=== PATIENT | male | born 1970 | race Caucasian/White ===

== ENCOUNTER 2017-01-18 06:27 | Inpatient (IN) ==
[2017-01-18 07:55] LABS: Basophils # 0.1 K/mcL (0.0-0.2); Basophils % 0.4 %; Eosinophils # 0.2 K/mcL (0.0-0.6); Eosinophils % 1.5 %; Hematocrit 51.2 % (37.5-50.1); Hemoglobin 17.7 g/dL (12.9-16.9); Immature Granulocytes % 0.4 % (0-4); Lymphocytes # 3.9 K/mcL (0.6-4.6); Mean Corpuscular HGB Conc 34.6 g/dL (31.6-35.5); Mean Corpuscular Hemoglobin 31.8 pg (28.0-33.3); Mean Corpuscular Volume 91.9 fL (83.0-100.0); Mean Platelet Volume 9.9 fL (9.4-12.4); Monocytes # 0.9 K/mcL (0.0-1.3); Monocytes % 5.5 %; Neutrophils # 10.4 K/mcL (1.6-8.9); Platelet Count 285 K/mcL (140-400); Red Blood Count 5.57 M/mcL (4.19-5.50); Red Cell Distribution Width 12.4 % (11.5-14.5); Segmented Neutrophils % 67.2 %
[2017-01-18 08:03] LABS: Bilirubin,Urine Negative (Negative); Blood,Urine Negative (Negative); Clarity,Urine Clear (Clear); Color,Urine Yellow (Yellow); Glucose,Urine (UA) Normal (Normal); Ketones,Urine Negative (Negative); Leukocyte Esterase,Urine Negative (Negative); Nitrite,Urine Negative (Negative); PH,Urine 6.5 pH Units (5.0-8.0); Protein,Urine Negative (Neg-Trace); Specific Gravity,Urine 1.008 (1.010-1.025); Urobilinogen,Urine Normal (Normal)
[2017-01-18 08:07] LABS: Amphetamine Screen,Urine Negative ng/mL (Cutoff=1000); Barbiturate Screen,Urine Negative ng/mL (Cutoff=200); Benzodiazepines Screen,Urine Negative ng/mL (Cutoff=200); Cannabinoid Screen,Urine Positive ng/mL (Cutoff = 50); Cocaine Screen,Urine Negative ng/mL (Cutoff= 300); Opiate Screen,Urine Negative ng/mL (Cutoff=300); Phencyclidine Screen,Urine Negative ng/mL (Cutoff=25)
[2017-01-18 08:21] LABS: BUN/Creatinine Ratio 7 (6-26); Blood Urea Nitrogen 8 mg/dL (8-26); Calcium 9.2 mg/dL (8.6-10.8); Carbon Dioxide 25 mEq/L (19-29); Chloride 104 mEq/L (98-109); Glucose 121 mg/dL (70-99); Osmolality,Calculated 290 (280-300); Potassium 3.5 mEq/L (3.5-4.5); Sodium 140 mEq/L (136-145); eGFR For African Americans > 60 (> 60); eGFR For Non-African Americans > 60 (> 60)
[2017-01-18 08:35] LABS: Acetaminophen < 1.0 mcg/mL (10-30); Ethanol < 10 mg/dL (0-10); Salicylate < 5.0 mg/dL (15-30)
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
[2017-01-18] MEDS ORDERED: *HR* LORazepam 2 MG/ML VIAL IM PRN (11:45)
[2017-01-18] MEDS ORDERED: Mag Hydrox/Al Hydrox/Simeth 30 ML UDC PO PRN (11:45)
[2017-01-18] MEDS ORDERED: MOM Conc 10 ML UD.LIQ PO PRN (11:45)
[2017-01-18] MEDS ORDERED: Haloperidol Lactate 5 MG/ML VIAL IM PRN (11:45)
[2017-01-18] MEDS: Ibuprofen 400 MG TABLET PO PRN (16:25)
[2017-01-18] MEDS: traZODone 50 MG TABLET PO PRN (19:57)
[2017-01-18] MEDS ORDERED: Pregabalin 75 MG CAPSULE PO PRN (20:56)
[2017-01-18] MEDS ORDERED: Ibuprofen 800 MG TABLET PO PRN (20:56)
[2017-01-19] MEDS: Ibuprofen 400 MG TABLET PO PRN (07:50)
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
[2017-01-19] MEDS: traZODone 50 MG TABLET PO PRN (20:48)
[2017-01-19] MEDS: Divalproex (24 HR) 500 MG TABLET PO SCH (20:49)
--- NOTE | 2017-01-20 10:44 | Psychiatry Progress Note ---
Date of Encounter: 01/20/17 Time of Encounter: 10:42 Subjective Interval history: Patient seen and evaluated this morning patient reports that he is upset because "they gave me medication last night". Patient reports that he does not want to take any medication. Patient reports that he would like to go home he reports he lives with his mother and reports that if his mother does not want to take him back that its okay and he wants to go some rales patient reports that he slept well patient seems to be very disheveled rapid speech and a flight of ideas. Review of Systems Psychiatric: Reports: mood swings, other (Paranoid delusion) Objective: Exam Level of alertness: Alert Patient appearance: Disheveled Behavior: anxious, guarded, suspicious, talkative Psychomotor activity: Increased Eye contact: Minimal Contact Mood description: Labile, Irritable Affect description: labile Speech pattern: Pressured Speech volume: Normal Thought process: Flight of Ideas Thought content: Yes Preoccupation Judgment: Poor Insight: Minimal Results - Vital Signs Vital Signs: Temp Pulse Resp BP Pulse Ox 96.8 F L 68 18 148/103 98 01/20/17 08:59 01/20/17 08:59 01/20/17 08:59 01/20/17 08:59 01/18/17 06:30 Assessment and Plan (1) Schizoaffective disorder, bipolar type Current visit: Yes Status: Acute Additional Plan: Patient is reluctant to be on medication, I discussed with him starting Cymbalta , benefits and side effects were discussed and he is agreeable to start we will monitor. Also will start him on Depakote 500 mg at bedtime. Risks, benefits, side effects, alternatives discussed w/pt: Yes Patient agreeable to treatment: Yes Consult Discharge Plan - Plan Referrals: [facility] [Outside] - 01/30/17 3:00 pm (The above appointment is with Mar Hilton Daily, for outpatient psychiatric assessment and medication management services. Please arrive 30 minutes early to complete paperwork. Please bring your photo ID and medication list. This is the first available appointment. You may contact the office regularly to check for cancellations that may allow you to be seen sooner. Additionally, the new assistant case manager assigned to you will contact you directly to schedule your intake appointment for case management and mental health counseling services. )
[2017-01-20] MEDS: Divalproex (24 HR) 500 MG TABLET PO SCH ×2 (21:24→23:01)
[2017-01-20] MEDS: traZODone 50 MG TABLET PO PRN (23:03)
--- NOTE | 2017-01-21 17:41 | Psychiatry Progress Note ---
Date of Encounter: 01/21/17 Time of Encounter: 17:38 Subjective Interval history: Patient seen and evaluated on approach patient was very disheveled patient continues to be bizarre and psychotic patient reports his mood as "isolative considering the circumstances". Patient reports that he has not a because he has leeches inside him and he reports this is something to do with Ji Daly patient was very tangential and speaking nonsensical. Patient has been selectively compliant with medication patient has been seen pacing the unit at times. And responding to internal stimuli. Review of Systems Psychiatric: Reports: anxiety, mood swings, other (Paranoid delusion) Objective: Exam Patient orientation: Yes Time, Yes Place Level of alertness: Alert Patient appearance: Disheveled Behavior: anxious, guarded, suspicious, distractible, impulsive, talkative Psychomotor activity: Normal Eye contact: Minimal Contact Mood description: Expansive, Labile, Irritable Affect description: constricted, incongruent with mood Speech volume: Loud Thought process: Loose Associations, Tangential, Flight of Ideas Thought content: Yes Paranoid delusion, Yes Grandiose delusion, Yes Obsessive thoughts Perceptual disturbances: Yes Auditory hallucinations Judgment: Poor Insight: Minimal Results - Vital Signs Vital Signs: Temp Pulse Resp BP Pulse Ox 97.2 F L 77 18 140/92 98 01/21/17 08:27 01/21/17 08:27 01/21/17 08:27 01/21/17 08:27 01/18/17 06:30 Assessment and Plan (1) Schizoaffective disorder, bipolar type Current visit: Yes Status: Acute Plan: Continue hospitalization, Encourage participation in unit milieu, Monitor sleep, Monitor appetite Additional Plan: Patient is reluctant to be on medication, I discussed with him starting Cymbalta , benefits and side effects were discussed and he is agreeable to start we will monitor. Also will start him on Depakote 500 mg at bedtime. Risks, benefits, side effects, alternatives discussed w/pt: Yes Patient agreeable to treatment: Yes Consult Discharge Plan - Plan Referrals: [facility] [Outside] - 01/30/17 3:00 pm (The above appointment is with Mar Hilton Daily, for outpatient psychiatric assessment and medication management services. Please arrive 30 minutes early to complete paperwork. Please bring your photo ID and medication list. This is the first available appointment. You may contact the office regularly to check for cancellations that may allow you to be seen sooner. Additionally, the new binder caser assigned to you will contact you directly to schedule your intake appointment for case management and mental health counseling services. )
[2017-01-21] MEDS: hydrOXYzine pamoate 25 MG CAPSULE PO PRN (20:14)
[2017-01-21] MEDS: traZODone 50 MG TABLET PO PRN (20:15)
[2017-01-21] MEDS: Divalproex (24 HR) 500 MG TABLET PO SCH (20:15)
[2017-01-21] MEDS: OLANZapine 5 MG TAB.RAPDIS PO SCH (20:15)
[2017-01-21] MEDS ORDERED: cloNIDine HCl 0.1 MG TABLET PO ONE (20:19)
[2017-01-22] MEDS: OLANZapine 5 MG TAB.RAPDIS PO SCH ×2 (08:18→22:08)
[2017-01-22] MEDS: *HR* LORazepam 1 MG TABLET PO PRN (08:57)
--- NOTE | 2017-01-22 14:21 | Psychiatry Progress Note ---
Date of Encounter: 01/22/17 Time of Encounter: 14:19 Subjective Interval history: Patient seen and evaluated this morning. Patient did not seem in any acute distress during evaluation. Patient did seem to be more alert this morning and was more organized when answering questions that were being asked. Patient was started on antipsychotic yesterday so we will continue to see patient's response to medication. Staff reports patient was medication compliant the patient has not been as restless and pacing the hallways. Patient had a shower today seemed to be doing better patient did report having breakfast and lunch. Patient did not report any bizarre thought process and seems to be improving. Review of Systems Psychiatric: Reports: anxiety, mood swings, other (Paranoid delusion) Objective: Exam Patient orientation: Yes Person, Yes Time, Yes Place Level of alertness: Alert Patient appearance: Appropriate Behavior: anxious, guarded, suspicious Psychomotor activity: Normal Eye contact: Minimal Contact Mood description: Depressed, Anxious, Labile Affect description: flat Speech pattern: Normal rate Speech volume: Normal Thought process: Loose Associations, Tangential Thought content: Yes Paranoid delusion Judgment: Limited Insight: Minimal Results - Vital Signs Vital Signs: Temp Pulse Resp BP Pulse Ox 97.5 F L 66 16 134/95 98 01/22/17 08:49 01/22/17 08:49 01/22/17 08:49 01/22/17 08:49 01/18/17 06:30 Assessment and Plan (1) Schizoaffective disorder, bipolar type Current visit: Yes Status: Acute Plan: Continue hospitalization, Encourage participation in unit milieu, Group Therapy, Monitor sleep, Monitor appetite Additional Plan: 01/21:start zyprexa for psychosis Patient is reluctant to be on medication, I discussed with him starting Cymbalta , benefits and side effects were discussed and he is agreeable to start we will monitor. Also will start him on Depakote 500 mg at bedtime. Risks, benefits, side effects, alternatives discussed w/pt: Yes Patient agreeable to treatment: Yes Consult Discharge Plan - Plan Referrals: [facility] [[facility]] - 01/30/17 3:00 pm (The above appointment is with Mar Hilton Daily, for outpatient psychiatric assessment and medication management services. Please arrive 30 minutes early to complete paperwork. Please bring your photo ID and medication list. This is the first available appointment. You may contact the office regularly to check for cancellations that may allow you to be seen sooner. Additionally, the new family independence case manager assigned to you will contact you directly to schedule your intake appointment for case management and mental health counseling services. )
[2017-01-22] MEDS: Divalproex (24 HR) 500 MG TABLET PO SCH (22:08)
[2017-01-23] MEDS: OLANZapine 5 MG TAB.RAPDIS PO SCH ×2 (09:08→23:37)
--- NOTE | 2017-01-23 14:51 | Psychiatry Progress Note ---
Date of Encounter: 01/23/17 Time of Encounter: 14:49 Subjective Interval history: Patient seen and evaluated this morning. Patient was irritable with this provider stated that he does not trust this provider because this provider had stated he was going to call his mother and that he would be able to go home. Patient now has not been taking his medications and he is refusing his medications discussed at length with patient that in order to go home he has to be compliant with his medication patient stated he would not be patient continues to be hyper quaker and paranoid at times. Patient is sleeping and eating okay. Patient is at times seen pacing the hallways. Review of Systems Psychiatric: Reports: anxiety, auditory hallucinations, difficulty concentrating , mood swings, other (Paranoid delusion) Objective: Exam Patient orientation: Yes Person, Yes Time Level of alertness: Alert Behavior: anxious, guarded, suspicious, impulsive Psychomotor activity: Normal Eye contact: Minimal Contact Mood description: Anxious, Labile, Irritable Affect description: flat Speech volume: Loud Thought process: Loose Associations, Tangential, Disorganized Thought content: Yes Paranoid delusion, Yes Yarsanism delusion Perceptual disturbances: Yes Reacting to internal stimuli, Yes Auditory hallucinations Judgment: Poor Insight: Minimal Results - Vital Signs Vital Signs: Temp Pulse Resp BP Pulse Ox 97.9 F 63 16 147/98 98 01/23/17 09:00 01/23/17 09:00 01/23/17 09:00 01/23/17 09:00 01/18/17 06:30 Assessment and Plan (1) Schizoaffective disorder, bipolar type Current visit: Yes Status: Acute Additional Plan: 01/22: reinitiate pink slip and put in for backup IM 01/21:start zyprexa for psychosis Patient is reluctant to be on medication, I discussed with him starting Cymbalta , benefits and side effects were discussed and he is agreeable to start we will monitor. Also will start him on Depakote 500 mg at bedtime. Risks, benefits, side effects, alternatives discussed w/pt: Yes Patient agreeable to treatment: Yes Consult Discharge Plan - Plan Referrals: [facility] [[facility]] - 01/30/17 3:00 pm (The above appointment is with Mar Hilton Daily, for outpatient psychiatric assessment and medication management services. Please arrive 30 minutes early to complete paperwork. Please bring your photo ID and medication list. This is the first available appointment. You may contact the office regularly to check for cancellations that may allow you to be seen sooner. Additionally, the new window caser assigned to you will contact you directly to schedule your intake appointment for case management and mental health counseling services. )
[2017-01-23] MEDS ORDERED: OLANZapine 10 MG VIAL IM ONE (14:52)
[2017-01-23] MEDS: Divalproex Sodium 125 MG CAPSULE PO SCH (18:32)
[2017-01-23] MEDS: Divalproex (24 HR) 500 MG TABLET PO SCH (23:36)
[2017-01-24] MEDS: OLANZapine 5 MG TAB.RAPDIS PO SCH ×2 (08:31→10:24)
[2017-01-24] MEDS: Divalproex Sodium 125 MG CAPSULE PO SCH ×3 (08:31→12:59)
--- NOTE | 2017-01-24 14:34 | Psychiatry Progress Note ---
Date of Encounter: 01/24/17 Time of Encounter: 14:33 Subjective Interval history: Patient seen and evaluated this morning. Patient did not want to see this provider again today without awareness in the room so therefore nurse said in the room with the evaluation. Patient was nonsensical and bizarre started talking to this provider about evangelical. When asked patient if he had any questions regarding and medication patient reported no patient has been selectively compliant with his medication yesterday evening as well as today we will continue to monitor patient's compliant with medication patient seemed to be more groomed then he was in the past few days. Review of Systems Psychiatric: Reports: anxiety, auditory hallucinations, difficulty concentrating , mood swings, other (Paranoid delusion) Results - Vital Signs Vital Signs: Temp Pulse Resp BP Pulse Ox 97 F L 79 16 125/98 98 01/24/17 09:25 01/24/17 09:25 01/24/17 09:25 01/24/17 09:25 01/18/17 06:30 Assessment and Plan (1) Schizoaffective disorder, bipolar type Current visit: Yes Status: Acute Risks, benefits, side effects, alternatives discussed w/pt: Yes Patient agreeable to treatment: Yes Consult Discharge Plan - Plan Referrals: [facility] [[facility]] - 01/30/17 3:00 pm (The above appointment is with Mar Hilton Daily, for outpatient psychiatric assessment and medication management services. Please arrive 30 minutes early to complete paperwork. Please bring your photo ID and medication list. This is the first available appointment. You may contact the office regularly to check for cancellations that may allow you to be seen sooner. Additionally, the new case packer and sealer assigned to you will contact you directly to schedule your intake appointment for case management and mental health counseling services. )
[2017-01-24] MEDS: *HR* LORazepam 1 MG TABLET PO PRN (15:47)
[2017-01-24] MEDS ORDERED: Haloperidol Lactate 5 MG/ML VIAL IM ONE (16:46)
[2017-01-24] MEDS ORDERED: *HR* LORazepam 2 MG/ML VIAL IM ONE (16:54)
[2017-01-25] MEDS: Divalproex (24 HR) 500 MG TABLET PO SCH ×2 (00:19→20:06)
[2017-01-25] MEDS: OLANZapine 10 MG TAB.RAPDIS PO SCH ×2 (00:20→09:03)
[2017-01-25] MEDS: OLANZapine 5 MG TAB.RAPDIS PO SCH ×2 (00:20→09:03)
[2017-01-25] MEDS: Divalproex Sodium 125 MG CAPSULE PO SCH ×4 (07:44→17:29)
--- NOTE | 2017-01-25 14:49 | Psychiatry Progress Note ---
Date of Encounter: 01/25/17 Time of Encounter: 14:47 Subjective Interval history: Pt seen and evaluted. Pt continues to be very paranoid and pacing very demanding to go home. Pt did not take his medication this morning. continues to report he is "mormom" and that he doesnt take meds. Pt hs been sleeping and eating. no issues reported from staff. Review of Systems Psychiatric: Reports: anxiety, auditory hallucinations, difficulty concentrating , mood swings, other (Paranoid delusion) Objective: Exam Patient orientation: Yes Person, Yes Time, Yes Place Level of alertness: Alert Patient appearance: Appropriate Behavior: anxious, hostile, guarded, suspicious Eye contact: Minimal Contact Mood description: Labile, Irritable Affect description: flat Speech pattern: Normal rate, Normal rhythm Speech volume: Loud Thought process: Tangential Thought content: Yes Preoccupation, Yes Paranoid delusion Judgment: Limited Insight: Minimal Results - Vital Signs Vital Signs: Temp Pulse Resp BP Pulse Ox 97.8 F 77 18 141/100 98 01/25/17 09:00 01/25/17 09:00 01/25/17 09:00 01/25/17 09:00 01/18/17 06:30 Assessment and Plan (1) Schizoaffective disorder, bipolar type Current visit: Yes Status: Acute Risks, benefits, side effects, alternatives discussed w/pt: Yes Patient agreeable to treatment: Yes Consult Discharge Plan - Plan Referrals: [facility] [[facility]] - 01/30/17 3:00 pm (The above appointment is with Mar Maddoxe Daily, for outpatient psychiatric assessment and medication management services. Please arrive 30 minutes early to complete paperwork. Please bring your photo ID and medication list. This is the first available appointment. You may contact the office regularly to check for cancellations that may allow you to be seen sooner. Additionally, the new dependency case manager assigned to you will contact you directly to schedule your intake appointment for case management and mental health counseling services. )
[2017-01-25] MEDS: traZODone 50 MG TABLET PO PRN (20:06)
[2017-01-25] MEDS: *HR* LORazepam 1 MG TABLET PO PRN (20:39)
[2017-01-26] MEDS: hydrOXYzine pamoate 25 MG CAPSULE PO PRN (04:22)
[2017-01-26] MEDS: Divalproex Sodium 125 MG CAPSULE PO SCH ×3 (08:28→17:16)
--- NOTE | 2017-01-26 09:16 | Psychiatry Progress Note ---
Date of Encounter: 01/26/17 Time of Encounter: 09:15 Subjective Interval history: Patient seen and evaluated this morning patient was more alert and more cooperative this morning he did not seem to be as delusional but will see if patient is minimizing patient did take his medication this morning even though for the last few days he has been noncompliant stating he is a Christianity and has been hyper scientology patient did get when necessary medication and can yesterday evening. Patient slept well appetite fair continues to require ongoing observation for mood symptoms and paranoia delusional activity Review of Systems Psychiatric: Reports: anxiety, auditory hallucinations, difficulty concentrating , mood swings, other (Paranoid delusion) Objective: Exam Patient orientation: Yes Person, Yes Time, Yes Place Level of alertness: Alert Patient appearance: Appropriate Behavior: calm, anxious Psychomotor activity: Normal Eye contact: Maintains Eye Contact Mood description: Anxious Affect description: congruent with mood Speech pattern: Normal rate, Normal rhythm, Normal tone Speech volume: Normal Thought process: Intact, Loose Associations, Tangential Thought content: Yes Intact Judgment: Fair Insight: Partial Results - Vital Signs Vital Signs: Temp Pulse Resp BP Pulse Ox 97 F L 63 16 121/83 98 01/26/17 09:00 01/26/17 09:00 01/26/17 09:00 01/26/17 09:00 01/18/17 06:30 Assessment and Plan (1) Schizoaffective disorder, bipolar type Current visit: Yes Status: Acute Plan: Continue hospitalization, Close observation, Encourage participation in unit milieu, Group Therapy, Monitor sleep, Monitor appetite Risks, benefits, side effects, alternatives discussed w/pt: Yes Patient agreeable to treatment : Yes Consult Discharge Plan - Plan Referrals: [facility] [[facility]] - 01/30/17 3:00 pm (The above appointment is with Mar Grewal, for outpatient psychiatric assessment and medication management services. Please arrive 30 minutes early to complete paperwork. Please bring your photo ID and medication list. This is the first available appointment. You may contact the office regularly to check for cancellations that may allow you to be seen sooner. Additionally, the new family independence case manager assigned to you will contact you directly to schedule your intake appointment for case management and mental health counseling services. )
[2017-01-26] MEDS: Divalproex (24 HR) 500 MG TABLET PO SCH (20:50)
[2017-01-27] MEDS: Divalproex Sodium 125 MG CAPSULE PO SCH (09:53)
--- NOTE | 2017-01-27 12:23 | Psychiatry Progress Note ---
Date of Encounter: 01/27/17 Time of Encounter: 11:00 Subjective Interval history: Patient seen and interviewed. History and physical examination reviewed. Patient is extremely delusional paranoid. He refused to take his morning medications today. I had a long conversation with patient after which she is agreeable on taking medications if I switch them to nighttime dose. I will discontinue his daytime Prolixin and Depakote and switch him to Prolixin 10 mg at bedtime and Depakote ER 1500 mg at bedtime. Patient is agreeable with this plan. Patient believes that he is being poisoned here. He was extremely loose and grandiose and hyperreligious. Poor self-care and ADLs. Minimal interaction with staff and other patients. Review of Systems Psychiatric: Reports: anxiety, auditory hallucinations, difficulty concentrating , mood swings, other (Paranoid delusion) Objective: Exam Patient orientation: Yes Person, Yes Time, Yes Place Level of alertness: Alert Patient appearance: Unkempt, Disheveled Behavior: guarded, suspicious, fearful, withdrawn Psychomotor activity: Slowed Eye contact: Maintains Eye Contact Mood description: Anxious Affect description: congruent with mood, constricted, dysphoric Speech pattern: Normal rate, Normal rhythm, Normal tone Speech volume: Normal Thought process: Circumstantial, Loose Associations Thought content: Yes Overt delusions, Yes Ideas of reference, Yes Pentecostalism delusion Perceptual disturbances: Yes Reacting to internal stimuli, Yes Auditory hallucinations, Yes Visual hallucinations Judgment: Limited Insight: Minimal Results - Vital Signs Vital Signs: Temp Pulse Resp BP Pulse Ox 98.4 F 71 16 145/95 98 01/26/17 19:40 01/26/17 19:40 01/26/17 19:40 01/26/17 19:40 01/18/17 06:30 Assessment and Plan (1) Schizoaffective disorder, bipolar type Current visit: Yes Status: Acute Plan: Continue hospitalization, Close observation, Suicide Precautions per unit protocol, Encourage participation in unit milieu, Group Therapy, Monitor sleep, Monitor appetite Additional Plan: We will switch patient's Prolixin and Depakote to nighttime dose. Risks, benefits, side effects, alternatives discussed w/pt: Yes Patient agreeable to treatment: Yes Consult Discharge Plan - Plan Referrals: [facility] [[facility]] - 02/15/17 3:00 pm (The above appointment is with Mar Hilton Daily, for outpatient psychiatric assessment and medication management services. Please arrive 30 minutes early to complete paperwork. Please bring your photo ID and medication list. This is the first available appointment. You may contact the office regularly to check for cancellations that may allow you to be seen sooner. Additionally, the new pillowcase folder assigned to you will contact you directly to schedule your intake appointment for case management and mental health counseling services. )
[2017-01-27] MEDS: Divalproex (24 HR) 500 MG TABLET PO SCH (20:35)
[2017-01-27] MEDS: traZODone 50 MG TABLET PO PRN (20:35)
[2017-01-27] MEDS: hydrOXYzine pamoate 25 MG CAPSULE PO PRN (21:50)
--- NOTE | 2017-01-28 13:13 | Psychiatry Progress Note ---
Date of Encounter: 01/28/17 Time of Encounter: 12:49 Subjective Interval history: Patient seen and interviewed. Patient did take all the medications last night. He is feeling a lot better today. More calm and controlled. He is pacing less and appear more clear. He is becoming more future oriented. He is able to engage in a meaningful conversation today. He is less distracted and less presybeterian and did not talk about his delusions or hallucinations. He tolerated medication changes fairly well and is willing to continue to take medications. Overall patient's condition is improving. Review of Systems Psychiatric: Reports: anxiety, difficulty concentrating, other (Paranoid delusion) Objective: Exam Patient orientation: Yes Person, Yes Time, Yes Place Level of alertness: Alert Patient appearance: Appropriate, Well Groomed Behavior: calm, cooperative Psychomotor activity: Normal Eye contact: Maintains Eye Contact Mood description: Anxious Affect description: congruent with mood, full range Speech pattern: Normal rate, Normal rhythm, Normal tone Speech volume: Normal Thought process: Linear, Goal Oriented Thought content: No Suicidal ideation, No Homicidal ideation, Yes Holiness delusion, Yes Grandiose delusion Perceptual disturbances: Yes Reacting to internal stimuli, No Visual hallucinations Judgment: Fair Insight: Partial Results - Vital Signs Vital Signs: Temp Pulse Resp BP Pulse Ox 97.2 F L 70 16 117/85 98 01/28/17 09:00 01/28/17 09:00 01/28/17 09:00 01/28/17 09:00 01/18/17 06:30 Assessment and Plan (1) Schizoaffective disorder, bipolar type Current visit: Yes Status: Acute Plan: Continue hospitalization, Close observation, Suicide Precautions per unit protocol, Encourage participation in unit milieu, Group Therapy, Monitor sleep, Monitor appetite Additional Plan: Continue with the current regime of medications. Possible discharge in a day or 2. Risks, benefits, side effects, alternatives discussed w/pt: Yes Patient agreeable to treatment: Yes Consult Discharge Plan - Plan Referrals: [facility] [[facility]] - 02/15/17 3:00 pm (The above appointment is with Mra Hilton Daily, for outpatient psychiatric assessment and medication management services. Please arrive 30 minutes early to complete paperwork. Please bring your photo ID and medication list. This is the first available appointment. You may contact the office regularly to check for cancellations that may allow you to be seen sooner. Additionally, the new case picker assigned to you will contact you directly to schedule your intake appointment for case management and mental health counseling services. )
[2017-01-28] MEDS: Ibuprofen 400 MG TABLET PO PRN (13:40)
[2017-01-28] MEDS: Divalproex (24 HR) 500 MG TABLET PO SCH (20:59)
[2017-01-29] MEDS: traZODone 50 MG TABLET PO PRN (00:32)
[2017-01-29] MEDS: hydrOXYzine pamoate 25 MG CAPSULE PO PRN (00:32)
[2017-01-29] MEDS: Divalproex (24 HR) 500 MG TABLET PO SCH (20:42)
[2017-01-30] MEDS: hydrOXYzine pamoate 25 MG CAPSULE PO PRN ×2 (02:56→20:42)
--- NOTE | 2017-01-30 15:16 | Psychiatry Progress Note ---
Date of Encounter: 01/29/17 Time of Encounter: 15:15 Subjective Interval history: Patient seen and evaluated this morning patient continues to pace T[place] patient continues to require when he will be discharged patient denies hearing voices patient continues to be very worship at times but is able to be directed. Patient has been medication compliant even though patient continues to state that he does not need the medication. Review of Systems Psychiatric: Reports: anxiety, difficulty concentrating, other (Paranoid delusion) Results - Vital Signs Vital Signs: Temp Pulse Resp BP Pulse Ox 98 F 66 18 114/79 98 01/30/17 09:00 01/30/17 09:00 01/30/17 09:00 01/30/17 09:00 01/18/17 06:30 Assessment and Plan (1) Schizoaffective disorder, bipolar type Current visit: Yes Status: Acute Plan: Continue hospitalization, Group Therapy, Monitor sleep, Monitor appetite Risks, benefits, side effects, alternatives discussed w/pt: Yes Patient agreeable to treatment: Yes Consult Discharge Plan - Plan Referrals: [facility] [[facility]] - 02/15/17 3:00 pm (The above appointment is with Mar Hilton Daily, for outpatient psychiatric assessment and medication management services. Please arrive 30 minutes early to complete paperwork. Please bring your photo ID and medication list. This is the first available appointment. You may contact the office regularly to check for cancellations that may allow you to be seen sooner. Additionally, the new case manager specialist assigned to you will contact you directly to schedule your intake appointment for case management and mental health counseling services. )
--- NOTE | 2017-01-30 15:19 | Psychiatry Progress Note ---
Date of Encounter: 01/30/17 Time of Encounter: 15:16 Subjective Interval history: Discharge seen and evaluated today after probate court hearing. Patient reports that he is willing to take the Prolixin Decanoate injection for ongoing maintenance of his psychotic symptoms. Patient reports that otherwise he feels he is doing fine patient reports he is sleeping and eating well patient continues to denied any auditory hallucinations. Per staff patient did get a little irritable when he was asking for something but he was redirectable patient has not received when necessary medication for agitation or aggression while order Prolixin long-acting injection today. Review of Systems Psychiatric: Reports: anxiety, difficulty concentrating, other (Paranoid delusion) Objective: Exam Patient orientation: Yes Person, Yes Time, Yes Place Level of alertness: Alert Patient appearance: Appropriate Behavior: calm Psychomotor activity: Normal Eye contact: Maintains Eye Contact Mood description: Euthymic/stable Affect description: congruent with mood Speech pattern: Normal rate, Normal rhythm, Normal tone Speech volume: Normal Thought process: Intact, Tangential Thought content: Yes Preoccupation Judgment: Limited Insight: Minimal Results - Vital Signs Vital Signs: Temp Pulse Resp BP Pulse Ox 98 F 66 18 114/79 98 01/30/17 09:00 01/30/17 09:00 01/30/17 09:00 01/30/17 09:00 01/18/17 06:30 Assessment and Plan (1) Schizoaffective disorder, bipolar type Current visit: Yes Status: Acute Plan: Continue hospitalization, Group Therapy, Monitor sleep, Monitor appetite Risks, benefits, side effects, alternatives discussed w/pt: Yes Patient agreeable to treatment: Yes Consult Discharge Plan - Plan Referrals: [facility] [[facility]] - 02/15/17 3:00 pm (The above appointment is with Mar Grewal, for outpatient psychiatric assessment and medication management services. Please arrive 30 minutes early to complete paperwork. Please bring your photo ID and medication list. This is the first available appointment. You may contact the office regularly to check for cancellations that may allow you to be seen sooner. Additionally, the new top case assembler assigned to you will contact you directly to schedule your intake appointment for case management and mental health counseling services. )
[2017-01-30] MEDS: traZODone 50 MG TABLET PO PRN (20:42)
[2017-01-30] MEDS: Divalproex (24 HR) 500 MG TABLET PO SCH (20:43)
[2017-01-31] MEDS ORDERED: traZODone 50 MG TABLET PO SCH (21:00)
[2017-01-31 21:10] VITALS: BP 117/78
[2017-01-31] MEDS: Divalproex (24 HR) 500 MG TABLET PO SCH (21:27)
[2017-01-31] MEDS: Ibuprofen 400 MG TABLET PO PRN (21:50)
[2017-02-01] MEDS: traZODone 50 MG TABLET PO PRN (00:41)
--- NOTE | 2017-02-01 08:23 | Psychiatry Progress Note ---
Date of Encounter: 01/31/17 Time of Encounter: 08:21 Subjective Interval history: Patient seen and evaluated patient Prolixin back injection yesterday patient has been improving patient was not is hyperreligious today patient was able to carry a conversation with this provider and was not responding to internus to my patient has been medication compliant patient has not been pacing as much as he was previously purse Daft patient has not required any when necessary medication for agitation or aggression. Objective: Exam Patient orientation: Yes Person, Yes Time, Yes Place Level of alertness: Alert Patient appearance: Appropriate Behavior: calm Psychomotor activity: Normal Eye contact: Maintains Eye Contact Mood description: Euthymic/stable Affect description: congruent with mood Speech pattern: Normal rate, Normal rhythm Speech volume: Normal Thought process: Intact Thought content: Yes Intact Judgment: Fair Insight: Partial Results - Vital Signs Vital Signs: Temp Pulse Resp BP Pulse Ox 98.6 F 66 18 117/78 98 01/31/17 21:00 01/31/17 21:00 01/31/17 21:00 01/31/17 21:00 01/18/17 06:30 Assessment and Plan (1) Schizoaffective disorder, bipolar type Current visit: Yes Status: Acute Plan: Continue hospitalization, Group Therapy, Monitor sleep, Monitor appetite Risks, benefits, side effects, alternatives discussed w/pt: Yes Patient agreeable to treatment: Yes Consult Discharge Plan - Plan Referrals: [facility] [[facility] - 02/15/17 3:00 pm (The above appointment is with Mar Grewal, for outpatient psychiatric assessment and medication management services. Please arrive 30 minutes early to complete paperwork. Please bring your photo ID and medication list. This is the first available appointment. You may contact the office regularly to check for cancellations that may allow you to be seen sooner. Additionally, the new case liner assigned to you will contact you directly to schedule your intake appointment for case management and mental health counseling services. )
--- NOTE | 2017-02-01 08:26 | Discharge Summary ---
Date of Encounter: 02/01/17 Time of Encounter: 08:23 Diagnosis - Discharge Diagnosis (1) Schizoaffective disorder, bipolar type Status: Acute Medications - Discharge Medications Prescriptions: Divalproex (24 HR) [Depakote ER (24 HR)] 1,500 mg PO HS #90 Fluphenazine [Prolixin] 10 mg PO HS #120 tab traZODone [TraZODone] 100 mg PO HS #60 tab Tamsulosin [Flomax] 0.4 mg PO DAILY 01/18/17 [History] Albuterol Sulfate [Albuterol Inhaler] 2 puff IH Q4H PRN 02/01/17 [Rx] Divalproex (24 HR) [Depakote ER (24 HR)] 1,500 mg PO HS #90 02/01/17 [Rx] Fluphenazine [Prolixin] 10 mg PO HS #120 tab 02/01/17 [Rx] traZODone [TraZODone] 100 mg PO HS #60 tab 02/01/17 [Rx] 3 Allergy/AdvReac Type Severity Reaction Status Date / Time No Known Allergies Allergy Verified 01/18/17 06:28 Provider Date of admission: 01/19/17 11:38 Primary care physician: PCP NONE Consults: 01/25/17 10:01 Consult to Pastoral Services [CONS] Routine Comment: Discharging clinician: Jaiden Gipson Assessment and Plan - Patient/Caregiver Discharge Instructions Activity: resume usual activities as tolerated Diet: regular diet - Follow up Plan Follow up with: [facility] DANIE Whiteside [Outside] - 02/15/17 3:00 pm (The above appointment is with Mar Grewal, for outpatient psychiatric assessment and medication management services. Please arrive 30 minutes early to complete paperwork. Please bring your photo ID and medication list. This is the first available appointment. You may contact the office regularly to check for cancellations that may allow you to be seen sooner. Additionally, the new case management manager assigned to you will contact you directly to schedule your intake appointment for case management and mental health counseling services. ) Overall status at discharge: Stable Disposition: Home, Self-Care Hospital Course Hospital course: Mr. Menon is a 46 year old male admitted to [facility] inpatient psychiatric unit for safety and stabilization. Patient's home medications were continued and reviewed. Throughout the hospital course patient was started on prolixin oral and after going to court pt agreed to take prolixin dec injection to assist with mood symptom stabilization. Patient did not exhibit any side effects to medication he was med compliant while he was on the unit patient participated in groups and was socializing with peers. Patient's sleep and appetite was fair. Patient denied any suicide or homicide ideations. Patient denied any thoughts of self-harm. Patient reports being interested in outpatient medication management and counseling. Patient was discussed for discharge due to patient not being a threat to himself or anyone else. sample worker did make contact with patient's mother. Patient will be returning home on discharge. Time spent discussing smoking cessation with patient: more than 10 minutes Does patient wish to continue nicotine replacement upon disc: No - Time Spent with Patient Total time spent providing and/or coordinating discharge services: Less than 30 minutes Quality - Multiple Antipsychotics Patient discharged on 2 or more antipsychotic medications: No Procedures - Procedures Procedures: Medication Management, Crisis Stabilization, Supportive Therapy, Group Therapy, Psychoeducational Therapy Mental Status Exam - Mental Status Exam Patient orientation: Yes Person, Yes Time, Yes Place Level of alertness: Alert Patient appearance: Appropriate Behavior: calm, cooperative Psychomotor activity: Normal Eye contact: Maintains Eye Contact Mood description: Euthymic/stable Affect description: congruent with mood Speech pattern: Normal rate, Normal rhythm, Normal tone Speech Volume: Normal Thought process: Intact Thought Content: Yes Intact Judgment: Fair Insight: Partial
--- NOTE | 2017-02-01 08:33 | Physician Discharge Referral ---
Home Health/Hosp Referral Info Transfer to: Home Health Attending Provider: Dr smith Provider in Charge Post Discharge: PCP (thad harrison) - Diagnosis (1) Schizoaffective disorder, bipolar type Priority: Primary Status: Acute - Respiratory Orders Smoking Cessation: Smoking cessation has been advised. For more information, call the [place] Tobacco Quit Line at 1-261-WJNG-NOW. - Diet/Nutrition Diet/Nutrition Orders: Regular - Activity Activity Orders: Up ad kely - Services Needed Following services are medically necessary services: Nursing (medication teaching and rec) - Transfer Medications Prescriptions: Divalproex (24 HR) [Depakote ER (24 HR)] 1,500 mg PO HS #90 Fluphenazine [Prolixin] 10 mg PO HS #120 tab traZODone [TraZODone] 100 mg PO HS #60 tab Home Medications: Tamsulosin [Flomax] 0.4 mg PO DAILY 01/18/17 [History] Albuterol Sulfate [Albuterol Inhaler] 2 puff IH Q4H PRN 02/01/17 [Rx] Divalproex (24 HR) [Depakote ER (24 HR)] 1,500 mg PO HS #90 02/01/17 [Rx] Fluphenazine [Prolixin] 10 mg PO HS #120 tab 02/01/17 [Rx] traZODone [TraZODone] 100 mg PO HS #60 tab 02/01/17 [Rx] Allergies/Adverse Reactions: 3 Allergy/AdvReac Type Severity Reaction Status Date / Time No Known Allergies Allergy Verified 01/18/17 06:28 Certification: Further, I certify that my clinical findings support that this patient is homebound (i.e. absences from home require considerable and taxing effort and are for medical reasons or [employer] services or infrequently or short duration when for other reasons) because: Homebound Reason: Altered mental status requiring supervision when leaving home Attestation: My signature below is to certify that this patient is under my care and that I, or nurse practitioner, or a physician's assistant art director working with me, has a face-to -face encounter with this patient.
== END 2017-02-01 10:35 | disposition home or self-care (01) | DRG 885 ==
LOC: EMEROO 06:27 → 1ANU 06:27 → SUATTDRO 01-19 11:38
PROVIDERS: ADMIT Psychiatry & Neurology Psychiatry; ATTEND Psychiatry & Neurology Psychiatry

== ENCOUNTER 2017-03-16 00:53 | Inpatient (IN) ==
[2017-03-16] MEDS ORDERED: *HR* LORazepam 2 MG/ML VIAL IM ONE (01:04)
[2017-03-16] MEDS ORDERED: Haloperidol Lactate 5 MG/ML VIAL IM ONE (01:04)
[2017-03-16 01:14] LABS: Bilirubin,Urine Negative (Negative); Blood,Urine Negative (Negative); Clarity,Urine Clear (Clear); Color,Urine Yellow (Yellow); Glucose,Urine (UA) Normal (Normal); Ketones,Urine Negative (Negative); Leukocyte Esterase,Urine Negative (Negative); Nitrite,Urine Negative (Negative); Protein,Urine Negative (Neg-Trace); Specific Gravity,Urine 1.019 (1.010-1.025); Urobilinogen,Urine Normal (Normal)
[2017-03-16 01:19] LABS: Basophils # 0.1 K/mcL (0.0-0.2); Basophils % 0.4 %; Eosinophils # 0.3 K/mcL (0.0-0.6); Eosinophils % 1.9 %; Hematocrit 46.4 % (37.5-50.1); Hemoglobin 16.3 g/dL (12.9-16.9); Immature Granulocytes % 0.4 % (0-4); Lymphocytes # 5.9 K/mcL (0.6-4.6); Lymphocytes % 36.5 %; Mean Corpuscular HGB Conc 35.1 g/dL (31.6-35.5); Monocytes # 1.2 K/mcL (0.0-1.3); Monocytes % 7.4 %; Neutrophils # 8.6 K/mcL (1.6-8.9); Platelet Count 297 K/mcL (140-400); Red Cell Distribution Width 12.6 % (11.5-14.5); Segmented Neutrophils % 53.4 %
[2017-03-16 01:21] LABS: Amphetamine Screen,Urine Negative ng/mL (Cutoff=1000); Barbiturate Screen,Urine Negative ng/mL (Cutoff=200); Benzodiazepines Screen,Urine Negative ng/mL (Cutoff=200); Cannabinoid Screen,Urine Positive ng/mL (Cutoff = 50); Cocaine Screen,Urine Negative ng/mL (Cutoff= 300); Opiate Screen,Urine Negative ng/mL (Cutoff=300); Phencyclidine Screen,Urine Negative ng/mL (Cutoff=25)
[2017-03-16 01:32] LABS: BUN/Creatinine Ratio 10 (6-26); Blood Urea Nitrogen 11 mg/dL (8-26); Calcium 9.5 mg/dL (8.6-10.8); Carbon Dioxide 21 mEq/L (19-29); Chloride 106 mEq/L (98-109); Glucose 123 mg/dL (70-99); Osmolality,Calculated 287 (280-300); Potassium 3.9 mEq/L (3.5-4.5); Sodium 138 mEq/L (136-145); eGFR For African Americans > 60 (> 60); eGFR For Non-African Americans > 60 (> 60)
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
[2017-03-16 01:33] LABS: Acetaminophen < 1.0 mcg/mL (10-30); Ethanol < 10 mg/dL (0-10); Salicylate < 5.0 mg/dL (15-30)
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
[2017-03-16] MEDS ORDERED: Ziprasidone injection 20 MG/ML VIAL IM ONE (02:56)
[2017-03-16 03:04] LABS: Thyroid Stimulating Hormone 2.553 mcIU/mL (0.350-4.840)
[2017-03-16] MEDS ORDERED: *HR* LORazepam 2 MG/ML VIAL IM PRN (03:29)
[2017-03-16] MEDS ORDERED: Mag Hydrox/Al Hydrox/Simeth 30 ML UDC PO PRN (03:29)
[2017-03-16] MEDS ORDERED: MOM Conc 10 ML UD.LIQ PO PRN (03:29)
[2017-03-16] MEDS ORDERED: traZODone 50 MG TABLET PO PRN (03:29)
[2017-03-16] MEDS ORDERED: *HR* LORazepam 1 MG TABLET PO PRN (03:29)
[2017-03-16] MEDS ORDERED: Haloperidol Lactate 5 MG/ML VIAL IM PRN (03:29)
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
[2017-03-16] MEDS: Nicotine 2 MG GUM BC PRN ×2 (14:59→20:06)
[2017-03-17] MEDS: Nicotine 2 MG GUM BC PRN ×2 (09:46→17:12)
--- NOTE | 2017-03-17 10:29 | Psychiatry Progress Note ---
Date of Encounter: 03/17/17 Time of Encounter: 09:29 Subjective Interval history: Patient seen and interviewed. History and physical examination reviewed. Patient is extremely delusional paranoid preoccupied with congregational ideations and teens. Patient is refusing to take all medications. Patient is talking about alien Gods and how he is being controlled by them. Restless and pacing on the unit. Patient is redirectable and not demonstrating any [id number] behavior. I spent a lot of time counseling patient and encouraging him to take medications but he is adamantly refusing to take any medications. Patient lacks insight into his illness. Review of Systems Psychiatric: Reports: anxiety, abnormal sleep pattern, auditory hallucinations, difficulty concentrating, irritability, mood swings, other (Delusions) Objective: Exam Patient orientation: Yes Person, Yes Time, Yes Place Level of alertness: Alert Patient appearance: Unkempt, Disheveled Behavior: anxious, guarded, suspicious, distractible Psychomotor activity: Increased Eye contact: Maintains Eye Contact Mood description: Anxious Affect description: dysphoric Speech pattern: Normal rate, Normal rhythm, Normal tone Speech volume: Soft/Quiet Thought process: Loose Associations, Disorganized Thought content: No Suicidal ideation, No Homicidal ideation, Yes Overt delusions, Yes Paranoid delusion, Yes Druze delusion Perceptual disturbances: Yes Reacting to internal stimuli Judgment: Poor Insight: None Results - Vital Signs Vital Signs: Temp Pulse Resp BP Pulse Ox 97.2 F L 81 16 114/85 94 03/17/17 09:00 03/17/17 09:00 03/17/17 09:00 03/17/17 09:00 03/16/17 00:53 Assessment and Plan (1) Schizoaffective disorder, bipolar type Current visit: Yes Status: Acute Plan: Continue hospitalization, Close observation, Suicide Precautions per unit protocol, Encourage participation in unit milieu, Group Therapy, Monitor sleep, Monitor appetite Additional Plan: We will continue to engage patient and encourage compliance to his medications Risks, benefits, side effects, alternatives discussed w/pt: Yes Patient agreeable to treatment: Yes Consult Discharge Plan - Plan Referrals: [facility] [Outside] - 03/29/17 11:00 am (The above appointment is with Mar Hilton Daily, for outpatient psychiatric assessment and medication management services. Please arrive 30 minutes early to complete paperwork. Please bring your photo ID and medication list. This is the first available appointment. You may contact the office regularly to check for cancellations that may allow you to be seen sooner. ) Christina Jennings CNP [Advanced Practice Nurse] - 03/29/17 2:15 pm (The above appointment is with Christina Jennings for primary health care and medication managament services.)
[2017-03-17] MEDS: hydrOXYzine pamoate 25 MG CAPSULE PO PRN ×2 (12:12→20:21)
[2017-03-17] MEDS: Acetaminophen 325 MG TABLET PO PRN (12:50)
[2017-03-18] MEDS: Acetaminophen 325 MG TABLET PO PRN ×2 (03:27→17:56)
[2017-03-18] MEDS: Nicotine 2 MG GUM BC PRN ×3 (09:10→17:15)
--- NOTE | 2017-03-18 10:54 | Psychiatry Progress Note ---
Date of Encounter: 03/18/17 Time of Encounter: 10:18 Subjective Interval history: patient seen and interviewed. During a little better. He started to take his medications. Becoming more clear and coherent. However there are still periods of loose talk and rambling. 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 He is also religiously preoccupied and and responding to internal stimuli. He continued to encourage compliant and will continue with his medications. Patient is agreeable to take his medications he is tolerating them fairly well and did not not report any side effects Review of Systems Psychiatric: Reports: anxiety, abnormal sleep pattern, auditory hallucinations, difficulty concentrating, irritability, mood swings, other (Delusions) Objective: Exam Patient orientation: Yes Person, Yes Time, Yes Place Level of alertness: Alert Patient appearance: Unkempt, Disheveled Behavior: calm, cooperative Psychomotor activity: Normal Eye contact: Maintains Eye Contact Mood description: Anxious Affect description: labile Speech pattern: Normal rate, Normal rhythm, Normal tone Speech volume: Normal Thought process: Loose Associations Thought content: Yes Overt delusions, Yes Presybeterian delusion Perceptual disturbances: No Auditory hallucinations, No Visual hallucinations Judgment: Limited Insight: Minimal Results - Vital Signs Vital Signs: Temp Pulse Resp BP Pulse Ox 97.4 F L 60 16 123/68 94 03/17/17 20:44 03/17/17 20:44 03/17/17 20:44 03/17/17 20:44 03/16/17 00:53 Assessment and Plan (1) Schizoaffective disorder, bipolar type Current visit: Yes Status: Acute Plan: Continue hospitalization, Close observation, Suicide Precautions per unit protocol, Encourage participation in unit milieu, Group Therapy, Monitor sleep, Monitor appetite Additional Plan: Will continue with current medications and continue to engage him in ensuring compliance Risks, benefits, side effects, alternatives discussed w/pt: Yes Patient agreeable to treatment: Yes Consult Discharge Plan - Plan Referrals: [facility] [Outside] - 03/29/17 11:00 am (The above appointment is with Mar Hilton Daily, for outpatient psychiatric assessment and medication management services. Please arrive 30 minutes early to complete paperwork. Please bring your photo ID and medication list. This is the first available appointment. You may contact the office regularly to check for cancellations that may allow you to be seen sooner. ) Christina Jennings, ADMINISTRATION CLERK [Advanced Practice Nurse] - 03/29/17 2:15 pm (The above appointment is with Christina Jnenings for primary health care and medication managament services.)
[2017-03-18] MEDS: hydrOXYzine pamoate 25 MG CAPSULE PO PRN (20:22)
--- NOTE | 2017-03-19 06:17 | Electrocardiograph Report ---
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
[2017-03-19] MEDS: Nicotine 2 MG GUM BC PRN ×3 (08:30→17:40)
--- NOTE | 2017-03-19 11:42 | Psychiatry Progress Note ---
Date of Encounter: 03/19/17 Time of Encounter: 11:25 Subjective Interval history: Patient seen for follow-up. Staff report he is less delusional, more cooperative and compliant with medication. Review of medication indicates that he missed his Prolixin Decanoate injection in the past 2-3 months. I discussed with him and he is agreeable to be given the injection and tickets for 3 weeks after discharge. Review of Systems Psychiatric: Reports: anxiety, abnormal sleep pattern, auditory hallucinations, difficulty concentrating, irritability, mood swings, other (Delusions) Objective: Exam Patient orientation: Yes Person, Yes Time, Yes Place Level of alertness: Alert Patient appearance: Appropriate, Disheveled, Bizarre Behavior: calm, cooperative, talkative Psychomotor activity: Normal Eye contact: Maintains Eye Contact Mood description: Euthymic/stable, Labile Affect description: congruent with mood, euphoric Speech pattern: Normal rate, Normal rhythm, Normal tone, Coherent Speech volume: Normal Thought process: Linear, Goal Oriented, Tangential Thought content: No Suicidal ideation, No Homicidal ideation, No Overt delusions Perceptual disturbances: No Auditory hallucinations, No Visual hallucinations Judgment: Fair Insight: Partial Results - Vital Signs Vital Signs: Temp Pulse Resp BP Pulse Ox 97.8 F 79 16 117/87 94 03/19/17 09:00 03/19/17 09:00 03/19/17 09:00 03/19/17 09:00 03/16/17 00:53 Assessment and Plan (1) Schizoaffective disorder, bipolar type Current visit: Yes Status: Acute Plan: Continue hospitalization, Close observation, Suicide Precautions per unit protocol, Encourage participation in unit milieu, Group Therapy, Monitor sleep, Monitor appetite Additional Plan: We will order Prolixin Decanoate 50 mg IM and every 3 weeks thereafter. Risks, benefits, side effects, alternatives discussed w/pt: Yes Patient agreeable to treatment: Yes Consult Discharge Plan - Plan Referrals: [facility] [Outside] - 03/29/17 11:00 am (The above appointment is with Mar Hilton Daily, for outpatient psychiatric assessment and medication management services. Please arrive 30 minutes early to complete paperwork. Please bring your photo ID and medication list. This is the first available appointment. You may contact the office regularly to check for cancellations that may allow you to be seen sooner. ) Christina Jennings, IMPROVEMENT AUDITOR [Advanced Practice Nurse] - 03/29/17 2:15 pm (The above appointment is with Christina Jennings for primary health care and medication managament services.)
[2017-03-19] MEDS: Acetaminophen 325 MG TABLET PO PRN ×2 (13:23→20:53)
[2017-03-19] MEDS: hydrOXYzine pamoate 25 MG CAPSULE PO PRN (20:53)
[2017-03-20] MEDS: Nicotine 2 MG GUM BC PRN (09:08)
[2017-03-20 09:33] VITALS: BP 120/79
--- NOTE | 2017-03-20 13:04 | Discharge Summary ---
Date of Encounter: 03/20/17 Time of Encounter: 12:25 Diagnosis - Discharge Diagnosis (1) Schizoaffective disorder, bipolar type Status: Acute Medications - Discharge Medications Prescriptions: Divalproex (24 HR) [Depakote ER (24 HR)] 1,500 mg PO HS #90 tab.er.24h Fluphenazine [Prolixin] 10 mg PO BID #60 tablet traZODone [TraZODone] 100 mg PO HS #60 tab Tamsulosin [Flomax] 0.4 mg PO DAILY 01/18/17 [History] Albuterol Sulfate [Albuterol Inhaler] 2 puff IH Q4H PRN 02/01/17 [Rx] Pregabalin [Lyrica] 150 mg PO BID 03/16/17 [History] Divalproex (24 HR) [Depakote ER (24 HR)] 1,500 mg PO HS #90 tab.er.24h 03/20/17 [Rx] Fluphenazine [Prolixin] 10 mg PO BID #60 tablet 03/20/17 [Rx] fluPHENAZine decanoate [Fluphenazine Decanoate] 50 mg IJ Q2W #1 vial 03/20/17 [ Rx] traZODone [TraZODone] 100 mg PO HS #60 tab 03/20/17 [Rx] 3 Allergy/AdvReac Type Severity Reaction Status Date / Time No Known Allergies Allergy Verified 03/16/17 07:04 Provider Date of admission: 03/16/17 03:15 Primary care physician: PCP NONE Consults: 03/17/17 07:48 Consult to Pastoral Services [CONS] Stat Comment: Discharging clinician: Arthur Pabon Assessment and Plan - Patient/Caregiver Discharge Instructions Activity: resume usual activities as tolerated Diet: regular diet Additional Instructions: Patient received Prolixin Decanoate 50 mg on 03/19/2017. Patient's next dose of Prolixin Decanoate 50 mg is due on 04/02/2017. - Follow up Plan Follow up with: [facility] [Outside] - 03/29/17 11:00 am (The above appointment is with Mar Hilton Daily, for outpatient psychiatric assessment and medication management services. Please arrive 30 minutes early to complete paperwork. Please bring your photo ID and medication list. This is the first available appointment. You may contact the office regularly to check for cancellations that may allow you to be seen sooner. Your case packer and sealer, Abby Rutherford, will pcik you up on discharge from the hospital. Abby will also see you individually every other day.) Christina Jennings CNP [Advanced Practice Nurse] - 03/29/17 2:15 pm (The above appointment is with Christina Jennings for primary health care and medication managament services.) Functional capacity at discharge: independent ambulation Overall status at discharge: Stable Disposition: Home, Self-Care Hospital Course Hospital course: Mr. Menon is a 47 year old male with history of schizoaffective disorder bipolar type admitted for agitation and paranoid delusion and noncompliance with medication. For details of admission please see H&P On the unit patient was started on his medication, initially he was manic and psychotic was pressured speech and paranoid delusion and adventist preoccupation. During the hospital stay he showed improvement was more cooperative, participated in groups and activities, his speech became more organized and logical. He was agreeable to get his Prolixin Decanoate injection and tolerated the injection without any side effects. He was educated about medication compliance and he was receptive to discussion licensed clinical social worker was in contact with his mother who was very supportive and willing to have him return home and safety issues were discussed. On discharge patient wants medically stable, alert and oriented, did not display any delusion or paranoia and denied any suicidal or homicidal ideation and he was motivated to continue his treatment and appointment. - Time Spent with Patient Total time spent providing and/or coordinating discharge services: Less than 30 minutes Quality - Multiple Antipsychotics Patient discharged on 2 or more antipsychotic medications: No Procedures - Procedures Procedures: Medication Management, Crisis Stabilization, Supportive Therapy, Group Therapy, Psychoeducational Therapy Mental Status Exam - Mental Status Exam Patient orientation: Yes Person, Yes Time, Yes Place Level of alertness: Alert Patient appearance: Appropriate, Well Groomed Behavior: calm, cooperative Psychomotor activity: Increased Eye contact: Maintains Eye Contact Mood description: Euthymic/stable, Expansive Affect description: congruent with mood, full range Speech pattern: Normal rate, Normal rhythm, Normal tone, Coherent Speech Volume: Normal Thought process: Linear, Goal Oriented, Tangential Thought Content: No Suicidal ideation, No Homicidal ideation, No Overt delusions Perceptual Disturbances: No Auditory hallucinations, No Visual hallucinations Judgment: Limited Insight: Partial
[2017-03-20] MEDS: Acetaminophen 325 MG TABLET PO PRN (13:55)
== END 2017-03-20 15:00 | disposition home or self-care (01) | DRG 885 ==
LOC: EMEROO 00:53 → 1ANU 03:15 → SUATTDRO 03:15 → 1ANU 03:37
PROVIDERS: ADMIT Student in an Organized Health Care Education/Training Program; ATTEND Psychiatry & Neurology Psychiatry

== ENCOUNTER 2018-03-21 08:39 | Inpatient (IN) ==
[2018-03-21] MEDS ORDERED: 0.9 % Sodium Chloride 1,000 ML IVC ONE ×2 (09:01→09:38)
[2018-03-21] MEDS ORDERED: Ondansetron 4 MG/2 ML VIAL IVP ONE (09:12)
[2018-03-21 09:25] LABS: Bilirubin,Urine Negative (Negative); Blood,Urine Trace (Negative); Clarity,Urine Clear (Clear); Color,Urine Yellow (Yellow); Glucose,Urine (UA) >=1000 mg/dL (Normal); Ketones,Urine 15 mg/dL (Negative); Leukocyte Esterase,Urine Negative (Negative); Nitrite,Urine Negative (Negative); PH,Urine 6.5 pH Units (5.0-8.0); Protein,Urine Negative (Neg-Trace); Specific Gravity,Urine 1.026 (1.010-1.025); Urobilinogen,Urine Normal (Normal)
[2018-03-21 09:30] LABS: VBG HCO3 14 mEq/L (21-27); VBG PCO2 26 mmHg (41-51); VBG PH 7.35 pH Units (7.32-7.42); VBG PO2 125 mmHg (25-50)
[2018-03-21 09:35] LABS: Basophils # 0.1 K/mcL (0.0-0.2); Basophils % 0.3 %; Hematocrit 43.1 % (37.5-50.1); Hemoglobin 14.6 g/dL (12.9-16.9); Immature Granulocytes % 1.8 % (0-4); Lymphocytes # 1.2 K/mcL (0.6-4.6); Lymphocytes % 6.6 %; Mean Corpuscular HGB Conc 33.9 g/dL (31.6-35.5); Mean Corpuscular Hemoglobin 31.8 pg (28.0-33.3); Mean Corpuscular Volume 93.9 fL (83.0-100.0); Mean Platelet Volume 12.3 fL (9.4-12.4); Monocytes # 0.9 K/mcL (0.0-1.3); Monocytes % 5.3 %; Platelet Count 270 K/mcL (140-400); Red Blood Count 4.59 M/mcL (4.19-5.50)
[2018-03-21] MEDS ORDERED: Isovue-370 500 ML INFUS..BTL IV ONE (09:38)
[2018-03-21 09:41] LABS: RBC,Urine 0-3 per hpf (0-3); WBC,Urine 0-3 per hpf (0-3)
[2018-03-21 09:42] LABS: Bacteria,Urine None Seen per hpf (None-Few); Squamous Epithelial Cell,Urine Few per lpf (None-Few)
[2018-03-21 09:53] LABS: Alanine Aminotransferase 37 Units/L (7-52); Albumin 3.7 g/dL (3.5-5.7); Albumin/Globulin Ratio 1.5 (1.1-2.2); Alkaline Phosphatase 276 Units/L (34-104); Aspartate Amino Transferase 26 Units/L (13-39); BUN/Creatinine Ratio 25 (6-26); Bilirubin,Total 0.3 mg/dL (0.3-1.0); Blood Urea Nitrogen 31 mg/dL (6-20); Calcium 8.4 mg/dL (8.6-10.3); Carbon Dioxide 13 mEq/L (23-29); Chloride 77 mEq/L (98-107); Globulin 2.5 g/dL (2.4-3.5); Lipase 66 Units/L (11-82); Potassium 5.7 mEq/L (3.5-5.1); Sodium 107 mEq/L (136-145); Total Protein 6.2 g/dL (6.4-8.9); eGFR For Non-African Americans > 60 (> 60)
[2018-03-21 10:13] LABS: Glucose 1471 mg/dL (70-105); Osmolality,Calculated 307 (280-300)
[2018-03-21] MEDS ORDERED: Insulin Regular, Human 100 UNIT/ML IV ONE (10:13)
[2018-03-21] MEDS ORDERED: Insulin Regular, Human 100 UNIT/ML IV PRN ×3 (10:13→15:56)
[2018-03-21] MEDS ORDERED: *HR* Dextrose 50 % in Water (Syg) 50 ML SYRINGE IVP PRN ×4 (10:13→20:28)
[2018-03-21] MEDS ORDERED: Insulin Human Regular 100 UNIT in 0.9 % Sodium Chloride 100 ML IVC SCH ×3 (10:15→15:56)
[2018-03-21] MEDS ORDERED: Isovue-370 500 ML INFUS..BTL PO ONE (10:31)
--- NOTE | 2018-03-21 10:47 | Emergency Department Note ---
Disposition Clinical Impression: Diabetic ketoacidosis, Hyperglycemia, Hyperkalemia, Hyponatremia, Abdominal pain Disposition: Admitted As Inpatient Condition: Critical General Adult HPI - General Stated complaint: Abdominal Pain Time Seen by Provider: 03/21/18 08:45 Source: patient, family, EMS Limitations: no limitations Nursing Notes Reviewed: Yes Vital Signs Reviewed: Yes - History of Present Illness HPI Narrative: 48-year-old male with a history of bipolar presents with acute abdominal pain and constipation. Patient stated his symptoms started 3 days ago since then his lithium dosage was increased. Patient felt thirsty all the time although he kept drinking water. He could not control his bladder. He felt nausea and vomited 4 times due to drinking too much water. He felt constant abdominal pain and enlarged girth due to constipation. His last bowel movement was 3 days ago. Ambulance picked up him from home. His sugar level was "high". Patient does not have history of diabetes. Onset (ago): day(s) (3) Location: abdomen Radiation: non-radiation Pain Severity: moderate Pain Scale: 4 Consistency: constant Associated symptoms: Reports: nausea/vomiting (and constipation) - Related Data Home Medications Medication Instructions Recorded Confirmed Tamsulosin [Flomax] 0.4 mg PO DAILY 01/18/17 05/03/17 Divalproex (24 HR) [Depakote ER 1,000 mg PO HS 03/21/18 03/21/18 (24 HR)] Divalproex (24 HR) [Depakote ER 250 mg PO HS 03/21/18 03/21/18 (24 HR)] Loxapine Succinate [Loxapine] 10 mg PO BID 03/21/18 03/21/18 Prazosin [Minipress] 3 mg PO HS 03/21/18 03/21/18 Pregabalin [Lyrica] 150 mg PO BID 03/21/18 Trazodone HCl 200 mg PO HS 03/21/18 03/21/18 Previous Rx's Medication Instructions Recorded Albuterol Sulfate [Albuterol 2 puff IH Q4H PRN 02/01/17 Inhaler] [place] Carbonate 600 mg PO BID 30 Days #120 capsule 06/05/17 Ziprasidone [Geodon] 80 mg PO BID 30 Days #60 capsule 06/05/17 hydrOXYzine pamoate [HydrOXYzine 50 mg PO TID PRN 30 Days #180 06/05/17 Pamoate] capsule Allergies Allergy/AdvReac Type Severity Reaction Status Date / Time No Known Allergies Allergy Verified 03/16/17 07:04 Constitutional: Denies: fever, chills Eyes: Denies: eye pain ENT ED: Denies: ear pain Cardiovascular: Denies: chest pain Respiratory: Denies: cough Gastrointestinal: Reports: abdominal pain, nausea, vomiting, constipation Genitourinary: Reports: urgency, frequency Musculoskeletal: Denies: back pain Integumentary: Denies: rash Neurological: Denies: headache Psychiatric: Denies: anxiety Endocrine: Denies: fatigue Hematological/Lymphatic: Denies: easy bleeding Allergic/Immunologic: Denies: facial swelling Past Medical History - Past Medical History Medical history: Reports: hepatitis Surgical history: Reports: non-contributory, cholecystectomy, other Psychiatric history: Reports: anxiety, bipolar, schizophrenia, previous psychiatric hospitalization - Social History Smoking Status: Current every day smoker Smokeless Tobacco Status: No Alcohol use: Reports: none Drug use: Reports: marijuana Physical Exam - General Limitations: no limitations General appearance: alert, in no apparent distress - Head Head exam: atraumatic - Eye Eye exam: Present: normal appearance. Absent: scleral icterus, conjunctival injection - ENT ENT exam: normal exam - Neck Neck exam: Present: normal inspection, full ROM, trachea midline - Chest Chest inspection: Present: normal inspection, symmetric chest wall rise. Absent: tenderness - Respiratory Respiratory exam: Present: normal lung sounds bilaterally. Absent: respiratory distress, wheezes - Cardiovascular Cardiovascular exam: Present: regular rate, normal rhythm - Abdominal Exam Abdominal exam: Present: tenderness, distention Abdominal tenderness: Present: diffuse - Extremities Exam Extremities exam: Present: normal inspection, full ROM. Absent: tenderness - Back Exam Back exam: Present: normal inspection, full ROM. Absent: tenderness - Neurological Exam Neurological exam: Present: alert, oriented X3 - Psychiatric Psychiatric exam: Present: normal affect - Skin Skin exam: Present: warm, intact Course Vital Signs Temperature 98.1 F 03/21/18 08:44 Pulse Rate 112 03/21/18 08:44 Respiratory Rate 20 03/21/18 08:44 Blood Pressure 185/116 03/21/18 08:44 O2 Sat by Pulse Oximetry 96 03/21/18 08:44 Temperature 98.1 F 03/21/18 08:44 Pulse Rate 115 03/21/18 12:23 Respiratory Rate 20 03/21/18 12:23 Blood Pressure 155/115 03/21/18 12:23 O2 Sat by Pulse Oximetry 94 03/21/18 12:23 Oxygen Delivery Oxygen Delivery Room Air Medical Decision Making - [facility] Narrative Medical decision making narrative: 48-year-old male with a history of bipolar presents with extremely thirsty, nausea, vomiting, constipation and abdominal pain since his lithium dose was increased three days ago. His BS level was "High" in BS meter. Physical exam: alert and oriented, abdomen distention, generalized tender to palpation, no focal neurology deficit. Impression: diabetes insipidus, abdominal pain (concerning of obstruction). Abd CT with oral contrast pending. Labs: Sodium 107, [id number]. DKA protocol started. Dr. You saw the patient. Pt will be admit to ICU for further evaluation. Critical care provided in ER. Spoke with Nephrologis: Dr. Walden, he will come to ER to see the patient. Spoke with ICU physician Dr. Fry. Pt is accepted to ICU. Abdominal CT: no obstruction. - Lab Data Lab results reviewed: Yes I reviewed the patient's lab results. Result diagrams: 03/21/18 09:07 03/21/18 09:07 Lab Results 03/21/18 03/21/18 03/21/18 Range/Units 08:43 08:44 09:07 WBC 17.4 H (4.3-11.1) K/mcL RBC 4.59 (4.19-5.50) M/mcL Hgb 14.6 (12.9-16.9) g/dL Hct 43.1 (37.5-50.1) % MCV 93.9 (83.0-100.0) fL MCH 31.8 (28.0-33.3) pg MCHC 33.9 (31.6-35.5) g/dL RDW 12.0 (11.5-14.5) % Plt Count 270 (140-400) K/mcL MPV 12.3 (9.4-12.4) fL Immature Gran % 1.8 (0-4) % Seg Neutrophils % 86.0 % Lymphocytes % 6.6 % Monocytes % 5.3 % Eosinophils % 0.0 % Basophils % 0.3 % Neutrophils # 15.0 H (1.6-8.9) K/mcL Lymphocytes # 1.2 (0.6-4.6) K/mcL Monocytes # 0.9 (0.0-1.3) K/mcL Eosinophils # 0.0 (0.0-0.6) K/mcL Basophils # 0.1 (0.0-0.2) K/mcL VBG pH (7.32-7.42) pH Units VBG pCO2 (41-51) mmHg VBG pO2 (25-50) mmHg VBG HCO3 (21-27) mEq/L Sodium (136-145) mEq/L Potassium (3.5-5.1) mEq/L Chloride (98-107) mEq/L Carbon Dioxide (23-29) mEq/L BUN (6-20) mg/dL Creatinine (0.70-1.30) mg/dL Est GFR ( Amer) (> 60) Est GFR (Non-Af Amer) (> 60) BUN/Creatinine Ratio (6-26) Glucose (70-105) mg/dL POC Glucose > 600 H* > 600 H* (70-99) mg/dL Calculated Osmolality (280-300) Uric Acid (2.3-7.6) mg/dL Calcium (8.6-10.3) mg/dL Total Bilirubin (0.3-1.0) mg/dL AST (13-39) Units/L ALT (7-52) Units/L Alkaline Phosphatase (34-104) Units/L Serum Total Protein (6.4-8.9) g/dL Albumin (3.5-5.7) g/dL Globulin (2.4-3.5) g/dL Albumin/Globulin Ratio (1.1-2.2) Lipase (11-82) Units/L Beta-Hydroxybutyric Acd (0.02-0.27) mmol/L Urine Color (Yellow) Urine Clarity (Clear) Urine pH (5.0-8.0) pH Units Ur Specific [place] (1.010-1.025) Urine Protein (Neg-Trace) mg/dL Urine Glucose (UA) (Normal) mg/dL Urine Ketones (Negative) mg/dL Urine Blood (Negative) Urine Nitrite (Negative) Urine Bilirubin (Negative) Urine Urobilinogen (Normal) mg/dL Ur Leukocyte Esterase (Negative) Urine Microscopic RBC (0-3) per hpf Urine Microscopic WBC (0-3) per hpf Ur Squamous Epith Cells (None-Few) per lpf Urine Bacteria (None-Few) per hpf Ur Culture Indicated? (NO) [place] (0.6-1.2) mEq/L 03/21/18 03/21/18 03/21/18 Range/Units 09:07 09:07 09:17 WBC (4.3-11.1) K/mcL RBC (4.19-5.50) M/mcL Hgb (12.9-16.9) g/dL Hct (37.5-50.1) % MCV (83.0-100.0) fL MCH (28.0-33.3) pg MCHC (31.6-35.5) g/dL RDW (11.5-14.5) % Plt Count (140-400) K/mcL MPV (9.4-12.4) fL Immature Gran % (0-4) % Seg Neutrophils % % Lymphocytes % % Monocytes % % Eosinophils % % Basophils % % Neutrophils # (1.6-8.9) K/mcL Lymphocytes # (0.6-4.6) K/mcL Monocytes # (0.0-1.3) K/mcL Eosinophils # (0.0-0.6) K/mcL Basophils # (0.0-0.2) K/mcL VBG pH (7.32-7.42) pH Units VBG pCO2 (41-51) mmHg VBG pO2 (25-50) mmHg VBG HCO3 (21-27) mEq/L Sodium 107 L* (136-145) mEq/L Potassium 5.7 H (3.5-5.1) mEq/L Chloride 77 L (98-107) mEq/L Carbon Dioxide 13 L (23-29) mEq/L BUN 31 H (6-20) mg/dL Creatinine 1.22 (0.70-1.30) mg/dL Est GFR ( Amer) > 60 (> 60) Est GFR (Non-Af Amer) > 60 (> 60) BUN/Creatinine Ratio 25 (6-26) Glucose 1471 H* (70-105) mg/dL POC Glucose (70-99) mg/dL Calculated Osmolality 307 H (280-300) Uric Acid 3.8 (2.3-7.6) mg/dL Calcium 8.4 L (8.6-10.3) mg/dL Total Bilirubin 0.3 (0.3-1.0) mg/dL AST 26 (13-39) Units/L ALT 37 (7-52) Units/L Alkaline Phosphatase 276 H (34-104) Units/L Serum Total Protein 6.2 L (6.4-8.9) g/dL Albumin 3.7 (3.5-5.7) g/dL Globulin 2.5 (2.4-3.5) g/dL Albumin/Globulin Ratio 1.5 (1.1-2.2) Lipase 66 (11-82) Units/L Beta-Hydroxybutyric Acd > 2.00 H (0.02-0.27) mmol/L Urine Color Yellow (Yellow) Urine Clarity Clear (Clear) Urine pH 6.5 (5.0-8.0) pH Units Ur Specific [place] 1.026 H (1.010-1.025) Urine Protein Negative (Neg-Trace) mg/dL Urine Glucose (UA) >=1000 H (Normal) mg/dL Urine Ketones 15 H (Negative) mg/dL Urine Blood Trace H (Negative) Urine Nitrite Negative (Negative) Urine Bilirubin Negative (Negative) Urine Urobilinogen Normal (Normal) mg/dL Ur Leukocyte Esterase Negative (Negative) Urine Microscopic RBC 0-3 (0-3) per hpf Urine Microscopic WBC 0-3 (0-3) per hpf Ur Squamous Epith Cells Few (None-Few) per lpf Urine Bacteria None Seen (None-Few) per hpf Ur Culture Indicated? NO (NO) [place] (0.6-1.2) mEq/L 03/21/18 03/21/18 Range/Units 09:18 09:28 WBC (4.3-11.1) K/mcL RBC (4.19-5.50) M/mcL Hgb (12.9-16.9) g/dL Hct (37.5-50.1) % MCV (83.0-100.0) fL MCH (28.0-33.3) pg MCHC (31.6-35.5) g/dL RDW (11.5-14.5) % Plt Count (140-400) K/mcL MPV (9.4-12.4) fL Immature Gran % (0-4) % Seg Neutrophils % % Lymphocytes % % Monocytes % % Eosinophils % % Basophils % % Neutrophils # (1.6-8.9) K/mcL Lymphocytes # (0.6-4.6) K/mcL Monocytes # (0.0-1.3) K/mcL Eosinophils # (0.0-0.6) K/mcL Basophils # (0.0-0.2) K/mcL VBG pH 7.35 (7.32-7.42) pH Units VBG pCO2 26 L (41-51) mmHg VBG pO2 125 H (25-50) mmHg VBG HCO3 14 L (21-27) mEq/L Sodium (136-145) mEq/L Potassium (3.5-5.1) mEq/L Chloride (98-107) mEq/L Carbon Dioxide (23-29) mEq/L BUN (6-20) mg/dL Creatinine (0.70-1.30) mg/dL Est GFR ( Amer) (> 60) Est GFR (Non-Af Amer) (> 60) BUN/Creatinine Ratio (6-26) Glucose (70-105) mg/dL POC Glucose (70-99) mg/dL Calculated Osmolality (280-300) Uric Acid (2.3-7.6) mg/dL Calcium (8.6-10.3) mg/dL Total Bilirubin (0.3-1.0) mg/dL AST (13-39) Units/L ALT (7-52) Units/L Alkaline Phosphatase (34-104) Units/L Serum Total Protein (6.4-8.9) g/dL Albumin (3.5-5.7) g/dL Globulin (2.4-3.5) g/dL Albumin/Globulin Ratio (1.1-2.2) Lipase (11-82) Units/L Beta-Hydroxybutyric Acd (0.02-0.27) mmol/L Urine Color (Yellow) Urine Clarity (Clear) Urine pH (5.0-8.0) pH Units Ur Specific [place] (1.010-1.025) Urine Protein (Neg-Trace) mg/dL Urine Glucose (UA) (Normal) mg/dL Urine Ketones (Negative) mg/dL Urine Blood (Negative) Urine Nitrite (Negative) Urine Bilirubin (Negative) Urine Urobilinogen (Normal) mg/dL Ur Leukocyte Esterase (Negative) Urine Microscopic RBC (0-3) per hpf Urine Microscopic WBC (0-3) per hpf Ur Squamous Epith Cells (None-Few) per lpf Urine Bacteria (None-Few) per hpf Ur Culture Indicated? (NO) [place] 0.1 L (0.6-1.2) mEq/L - Radiology Data Radiology results reviewed: Yes I reviewed the patient's radiology results. FINDINGS: Lower Chest: Motion artifact degrades image quality. There is bibasilar scarring and/or atelectasis. A small hiatal hernia is noted. Fluid is present within the distal esophagus either due to esophageal dysmotility or gastroesophageal reflux. Organs: The liver, spleen, pancreas, adrenal glands and kidneys are unremarkable. Status post cholecystectomy. There are bilateral simple renal cysts, the largest which measures 8 mm in the left midpole. 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 GI/Bowel: There is no bowel obstruction. There is a small to moderate gastric diverticulum. The appendix is within normal limits. Stool is present throughout the colon. Pelvis: The pelvic viscera are within normal limits. Peritoneum/Retroperitoneum: There is no evidence of free fluid or adenopathy. Bones/Soft Tissues: Degenerative changes involve the lumbar spine. CT/CT abd pelvis w iv and oral IMPRESSION: 1. No acute abnormality. D/ / Basilio Hunt MD / Basilio Hunt MD Interpreting Provider: Basilio Hunt MD Attestation Statement - Attestation Attestation: I, Spencer You DO have provided [id number] time during the care of this patient. Detailed review the presentation, symptoms, medical history were discussed and reviewed with the advanced practice provider Kamar Hess PA-C/[employer]. Medical intervention labs and imaging studies were reviewed in detail. See full documentation of physical exam and course of care in the advanced practice provider's note. I agree with the determined course of care, medical intervention and disposition put forth by the advanced practice provider. See below documentation for changes or alterations in documentation.
[2018-03-21 11:21] LABS: Uric Acid 3.8 mg/dL (2.3-7.6)
--- NOTE | 2018-03-21 11:25 | Nephrology Consult Note ---
Date of Encounter: 03/21/18 Time of Encounter: 11:24 Assessment and Plan (1) Hyponatremia Current Visit: Yes Status: Acute 48-year-old male with past medical history of schizophrenia and bipolar taking lithium presented with hyponatremia with sodium 107 in setting of hyperglycemia with glucose 1471. -Etiology is pseudohyponatremia due to the hyperglycemia. -Corrected sodium level 134 -urinalysis demonstrating glucose and ketones -uric acid 3.8 -lithium level of 0.1 -patient is alert and oriented x3. plan: -agree with IV fluids to treat DKA. Do not need to increase sodium level 6- 8meq/24hr as it is not applicable in this setting. -urine osmolality, urine sodium pending -his lithium level is subtherapeutic and likely not contributing -recommend continue to monitor sodium (2) Diabetic ketoacidosis Current Visit: Yes Status: Acute Patient has no known history of diabetes however he presented with diabetic ketoacidosis with glucose level of 1471. He denied ever being told he has diabetes. High anion gap metabolic acidosis 13 Beta hydroxybutyric acid >2.0 urinalysis with glucose and ketones VBG: pH 7.35, HCO3 14 -management per primary team Qualifiers: Diabetes mellitus type: type 2 Diabetes mellitus complication detail: with coma Qualified Code(s): E11.11 - Type 2 diabetes mellitus with ketoacidosis with coma (3) Hyperkalemia Current Visit: Yes Status: Acute Hyperkalemia in setting of DKA with potassium of 5.7 -continue to monitor potassium. Potassium level will likely decrease since the patient will be on a insulin drip (4) Schizoaffective disorder, bipolar type Current Visit: No Status: Acute No schizoaffective disorder with bipolar type taking lithium. Patient reported recent increase in medication dosage. However his lithium level was subtherapeutic at 0.1. He is likely not been taking his lithium. (5) Polydipsia Current Visit: Yes Status: Acute Patient has had polydipsia likely secondary to hyperglycemia in setting of DKA. Unlikely to be related to taking lithium as his lithium level was subtherapeutic. History of Present Illness - Reason for Consult Consult date: 03/21/18 hyponatremia Requesting physician: Kamar Hess - Chief Complaint Abdominal pain - History of Present Illness Mr. Menon is a 48-year-old male with a past medical history of schizophrenia, bipolar, hepatitis C who presented to [facility] complaining of abdominal pain. Nephrology was consulted due to the patient having hyponatremia. Of note, the patient was found to be hyperglycemic with a glucose level of 1471. Upon examination of the patient is alert and oriented times 3. No family at bedside. He stated that about a week ago his physician increases lithium dose. 2 days ago he started becoming more thirsty and drinking a lot of bottled water to the point that his mother told him he would if he kept drinking some much water. He also noticed an increase in urinary frequency. Today he started having increased abdominal pain and decided to come to the ER. He denied fever, chills, chest pain, shortness of breath, dysuria, hematuria. He stated that he has never been told he has diabetes. He admits to occasional marijuana use but denies IV drug use. He is a current smoker of 20 cigarillos a day since he was 6 years old. He denies alcohol use. Past Med Surg Social Fam HX - Past Medical History Attestation: Yes The following information was validated with the patient. Source: patient Medical history: hepatitis Additional medical history: Hep C Psychiatric history: anxiety, bipolar, schizophrenia, previous psychiatric hospitalization - Past Surgical History Surgical History: non-contributory, cholecystectomy, other Additional surgical history: "muscle removed at the top of my stomach when I was a baby" - Social History Smoking Status: Current every day smoker Smokeless Tobacco Status: No Alcohol use: none Drug use: marijuana - Family History Mother Adopted: No Family Member Ethnicity: Non- Living Status: Still Living Hx Family Cardiac Disorders: No Hx Family Respiratory Disorders: No Hx Family Cancer: Yes Hx Family GI Disorders: No Hx Family Endocrine Disorder: No Hx Family Neuromuscular Disorders: No Hx Family Neurologic Disorders: No Hx Family HEENT Disorders: No Hx Family Autoimmune Disorders: No Father Adopted: No Family Member Ethnicity: Non- Living Status: Still Living Hx Family Cardiac Disorders: No Hx Family Respiratory Disorders: Yes Hx Family Cancer: No Hx Family GI Disorders: No Hx Family Endocrine Disorder: No Hx Family Neuromuscular Disorders: No Hx Family Neurologic Disorders: No Hx Family HEENT Disorders: No Hx Family Autoimmune Disorders: No Medications and Allergies Tamsulosin [Flomax] 0.4 mg PO DAILY 01/18/17 [History] Albuterol Sulfate [Albuterol Inhaler] 2 puff IH Q4H PRN 02/01/17 [Rx] [place] Carbonate 600 mg PO BID 30 Days #120 capsule 06/05/17 [Rx] Ziprasidone [Geodon] 80 mg PO BID 30 Days #60 capsule 06/05/17 [Rx] Divalproex (24 HR) [Depakote ER (24 HR)] 1,000 mg PO HS 03/21/18 [History] Divalproex (24 HR) [Depakote ER (24 HR)] 250 mg PO HS 03/21/18 [History] Loxapine Succinate [Loxapine] 10 mg PO BID 03/21/18 [History] Prazosin [Minipress] 3 mg PO HS 03/21/18 [History] Pregabalin [Lyrica] 150 mg PO BID 03/21/18 [History] Trazodone HCl 200 mg PO HS 03/21/18 [History] Allergy/AdvReac Type Severity Reaction Status Date / Time No Known Allergies Allergy Verified 03/16/17 07:04 Review of Systems Constitutional: no chills, no fever(s), no headache(s) Nose, mouth and throat: no disequilibrium, no dysphagia, no headache(s) Cardiovascular: no chest pain, no edema, no palpitations, no syncope Respiratory: no cough, no dyspnea, no wheezing Gastrointestinal: abdominal pain, constipation, nausea, vomiting, no diarrhea, no hematochezia, no melena Genitourinary Male: urinary frequency (Increased), no dysuria, no hematuria Musculoskeletal: no joint swelling, no muscle cramps, no muscle weakness Integumentary: no new lesions Neurological: no abnormal hearing, no abnormal speech, no headache(s) Endocrine: polydipsia, polyuria Exam - Vital Signs Vital signs: Initial Vital Signs Temp Pulse Resp BP Pulse Ox 98.1 F 112 20 185/116 96 03/21/18 08:44 03/21/18 08:44 03/21/18 08:44 03/21/18 08:44 03/21/18 08:44 Vital Signs - Last 8 Hours Temp Pulse Resp BP Pulse Ox 03/21/18 10:11 109 20 179/117 95 03/21/18 08:44 98.1 F 112 20 185/116 96 Intake and Output 03/20/18 03/21/18 03/21/18 23:59 07:59 15:59 Other: Stool Characteristics Normal for Patient Weight 102.376 kg Patient Weight 03/21/18 23:59 Weight 102.376 kg - General Appearance General appearance: well-developed, well-nourished, appears started age EENT: mucous membranes dry Neck: supple Respiratory: clear Cardiology: no edema, regular rate, regular rhythm, normal S1, normal S2 Gastrointestinal: normoactive bowel sounds, no tenderness, no guarding, distend ed Integumentary: no rash, warm and dry Neurologic: alert and oriented x3, CN 3-12 intact Musculoskeletal: no erythema, no cyanosis Psychiatric: mood/affect appropriate, cooperative Results - Lab Results 03/21/18 09:07 03/21/18 09:07 Most recent lab results Calcium 8.4 mg/dL (8.6-10.3) L 03/21/18 09:07 Consult Discharge Plan - Plan Referrals: NONE,PCP [Primary Care Provider] -
[2018-03-21] MEDS ORDERED: D5% in 0.45% NACL 1,000 ML IVC PRN ×2 (11:48→15:56)
--- NOTE | 2018-03-21 11:48 | Emergency Department Note ---
Disposition Clinical Impression: Diabetic ketoacidosis, Hyperglycemia, Hyperkalemia, Hyponatremia, Abdominal pain Disposition: Admitted As Inpatient Condition: Critical Time of Disposition: 12:33 General Adult HPI - General Chief complaint: ED Abdominal Pain Stated complaint: Abdominal Pain Time Seen by Provider: 03/21/18 08:45 Source: patient, family, EMS Limitations: no limitations - History of Present Illness Location: abdomen Pain Scale: 4 Associated symptoms: Reports: nausea/vomiting (and constipation) - Related Data Home Medications Medication Instructions Recorded Confirmed Tamsulosin [Flomax] 0.4 mg PO DAILY 01/18/17 05/03/17 Divalproex (24 HR) [Depakote ER 1,000 mg PO HS 03/21/18 03/21/18 (24 HR)] Divalproex (24 HR) [Depakote ER 250 mg PO HS 03/21/18 03/21/18 (24 HR)] Loxapine Succinate [Loxapine] 10 mg PO BID 03/21/18 03/21/18 Prazosin [Minipress] 3 mg PO HS 03/21/18 03/21/18 Pregabalin [Lyrica] 150 mg PO BID 03/21/18 Trazodone HCl 200 mg PO HS 03/21/18 03/21/18 Previous Rx's Medication Instructions Recorded Albuterol Sulfate [Albuterol 2 puff IH Q4H PRN 02/01/17 Inhaler] [place] Carbonate 600 mg PO BID 30 Days #120 capsule 06/05/17 Ziprasidone [Geodon] 80 mg PO BID 30 Days #60 capsule 06/05/17 hydrOXYzine pamoate [HydrOXYzine 50 mg PO TID PRN 30 Days #180 06/05/17 Pamoate] capsule Allergies Allergy/AdvReac Type Severity Reaction Status Date / Time No Known Allergies Allergy Verified 03/16/17 07:04 Constitutional: Denies: fever, chills Eyes: Denies: eye pain ENT ED: Denies: ear pain Cardiovascular: Denies: chest pain Respiratory: Denies: cough Gastrointestinal: Reports: abdominal pain, nausea, vomiting, constipation Genitourinary: Reports: urgency, frequency Musculoskeletal: Denies: back pain Integumentary: Denies: rash Neurological: Denies: headache Psychiatric: Denies: anxiety Endocrine: Denies: fatigue Hematological/Lymphatic: Denies: easy bleeding Allergic/Immunologic: Denies: facial swelling Past Medical History - Past Medical History Medical history: Reports: hepatitis Surgical history: Reports: non-contributory, cholecystectomy, other Psychiatric history: Reports: anxiety, bipolar, schizophrenia, previous psychiatric hospitalization - Social History Smoking Status: Current every day smoker Smokeless Tobacco Status: No Alcohol use: Reports: none Drug use: Reports: marijuana Physical Exam - General Limitations: no limitations General appearance: alert, in no apparent distress Course Vital Signs Temperature 98.1 F 03/21/18 08:44 Pulse Rate 112 03/21/18 08:44 Respiratory Rate 20 03/21/18 08:44 Blood Pressure 185/116 03/21/18 08:44 O2 Sat by Pulse Oximetry 96 03/21/18 08:44 Temperature 98.1 F 03/21/18 08:44 Pulse Rate 115 03/21/18 12:23 Respiratory Rate 20 03/21/18 12:23 Blood Pressure 155/115 03/21/18 12:23 O2 Sat by Pulse Oximetry 94 03/21/18 12:23 Oxygen Delivery Oxygen Delivery Room Air Medical Decision Making - Lab Data Result diagrams: 03/21/18 09:07 03/21/18 09:07 Lab Results 03/21/18 03/21/18 03/21/18 Range/Units 08:43 08:44 09:07 WBC 17.4 H (4.3-11.1) K/mcL RBC 4.59 (4.19-5.50) M/mcL Hgb 14.6 (12.9-16.9) g/dL Hct 43.1 (37.5-50.1) % MCV 93.9 (83.0-100.0) fL MCH 31.8 (28.0-33.3) pg MCHC 33.9 (31.6-35.5) g/dL RDW 12.0 (11.5-14.5) % Plt Count 270 (140-400) K/mcL MPV 12.3 (9.4-12.4) fL Immature Gran % 1.8 (0-4) % Seg Neutrophils % 86.0 % Lymphocytes % 6.6 % Monocytes % 5.3 % Eosinophils % 0.0 % Basophils % 0.3 % Neutrophils # 15.0 H (1.6-8.9) K/mcL Lymphocytes # 1.2 (0.6-4.6) K/mcL Monocytes # 0.9 (0.0-1.3) K/mcL Eosinophils # 0.0 (0.0-0.6) K/mcL Basophils # 0.1 (0.0-0.2) K/mcL VBG pH (7.32-7.42) pH Units VBG pCO2 (41-51) mmHg VBG pO2 (25-50) mmHg VBG HCO3 (21-27) mEq/L Sodium (136-145) mEq/L Potassium (3.5-5.1) mEq/L Chloride (98-107) mEq/L Carbon Dioxide (23-29) mEq/L BUN (6-20) mg/dL Creatinine (0.70-1.30) mg/dL Est GFR ( Amer) (> 60) Est GFR (Non-Af Amer) (> 60) BUN/Creatinine Ratio (6-26) Glucose (70-105) mg/dL POC Glucose > 600 H* > 600 H* (70-99) mg/dL Calculated Osmolality (280-300) Uric Acid (2.3-7.6) mg/dL Calcium (8.6-10.3) mg/dL Total Bilirubin (0.3-1.0) mg/dL AST (13-39) Units/L ALT (7-52) Units/L Alkaline Phosphatase (34-104) Units/L Serum Total Protein (6.4-8.9) g/dL Albumin (3.5-5.7) g/dL Globulin (2.4-3.5) g/dL Albumin/Globulin Ratio (1.1-2.2) Lipase (11-82) Units/L Beta-Hydroxybutyric Acd (0.02-0.27) mmol/L Urine Color (Yellow) Urine Clarity (Clear) Urine pH (5.0-8.0) pH Units Ur Specific [place] (1.010-1.025) Urine Protein (Neg-Trace) mg/dL Urine Glucose (UA) (Normal) mg/dL Urine Ketones (Negative) mg/dL Urine Blood (Negative) Urine Nitrite (Negative) Urine Bilirubin (Negative) Urine Urobilinogen (Normal) mg/dL Ur Leukocyte Esterase (Negative) Urine Microscopic RBC (0-3) per hpf Urine Microscopic WBC (0-3) per hpf Ur Squamous Epith Cells (None-Few) per lpf Urine Bacteria (None-Few) per hpf Ur Culture Indicated? (NO) 03/21/18 03/21/18 03/21/18 Range/Units 09:07 09:07 09:17 WBC (4.3-11.1) K/mcL RBC (4.19-5.50) M/mcL Hgb (12.9-16.9) g/dL Hct (37.5-50.1) % MCV (83.0-100.0) fL MCH (28.0-33.3) pg MCHC (31.6-35.5) g/dL RDW (11.5-14.5) % Plt Count (140-400) K/mcL MPV (9.4-12.4) fL Immature Gran % (0-4) % Seg Neutrophils % % Lymphocytes % % Monocytes % % Eosinophils % % Basophils % % Neutrophils # (1.6-8.9) K/mcL Lymphocytes # (0.6-4.6) K/mcL Monocytes # (0.0-1.3) K/mcL Eosinophils # (0.0-0.6) K/mcL Basophils # (0.0-0.2) K/mcL VBG pH (7.32-7.42) pH Units VBG pCO2 (41-51) mmHg VBG pO2 (25-50) mmHg VBG HCO3 (21-27) mEq/L Sodium 107 L* (136-145) mEq/L Potassium 5.7 H (3.5-5.1) mEq/L Chloride 77 L (98-107) mEq/L Carbon Dioxide 13 L (23-29) mEq/L BUN 31 H (6-20) mg/dL Creatinine 1.22 (0.70-1.30) mg/dL Est GFR ( Amer) > 60 (> 60) Est GFR (Non-Af Amer) > 60 (> 60) BUN/Creatinine Ratio 25 (6-26) Glucose 1471 H* (70-105) mg/dL POC Glucose (70-99) mg/dL Calculated Osmolality 307 H (280-300) Uric Acid 3.8 (2.3-7.6) mg/dL Calcium 8.4 L (8.6-10.3) mg/dL Total Bilirubin 0.3 (0.3-1.0) mg/dL AST 26 (13-39) Units/L ALT 37 (7-52) Units/L Alkaline Phosphatase 276 H (34-104) Units/L Serum Total Protein 6.2 L (6.4-8.9) g/dL Albumin 3.7 (3.5-5.7) g/dL Globulin 2.5 (2.4-3.5) g/dL Albumin/Globulin Ratio 1.5 (1.1-2.2) Lipase 66 (11-82) Units/L Beta-Hydroxybutyric Acd > 2.00 H (0.02-0.27) mmol/L Urine Color Yellow (Yellow) Urine Clarity Clear (Clear) Urine pH 6.5 (5.0-8.0) pH Units Ur Specific [place] 1.026 H (1.010-1.025) Urine Protein Negative (Neg-Trace) mg/dL Urine Glucose (UA) >=1000 H (Normal) mg/dL Urine Ketones 15 H (Negative) mg/dL Urine Blood Trace H (Negative) Urine Nitrite Negative (Negative) Urine Bilirubin Negative (Negative) Urine Urobilinogen Normal (Normal) mg/dL Ur Leukocyte Esterase Negative (Negative) Urine Microscopic RBC 0-3 (0-3) per hpf Urine Microscopic WBC 0-3 (0-3) per hpf Ur Squamous Epith Cells Few (None-Few) per lpf Urine Bacteria None Seen (None-Few) per hpf Ur Culture Indicated? NO (NO) 03/21/18 Range/Units 09:28 WBC (4.3-11.1) K/mcL RBC (4.19-5.50) M/mcL Hgb (12.9-16.9) g/dL Hct (37.5-50.1) % MCV (83.0-100.0) fL MCH (28.0-33.3) pg MCHC (31.6-35.5) g/dL RDW (11.5-14.5) % Plt Count (140-400) K/mcL MPV (9.4-12.4) fL Immature Gran % (0-4) % Seg Neutrophils % % Lymphocytes % % Monocytes % % Eosinophils % % Basophils % % Neutrophils # (1.6-8.9) K/mcL Lymphocytes # (0.6-4.6) K/mcL Monocytes # (0.0-1.3) K/mcL Eosinophils # (0.0-0.6) K/mcL Basophils # (0.0-0.2) K/mcL VBG pH 7.35 (7.32-7.42) pH Units VBG pCO2 26 L (41-51) mmHg VBG pO2 125 H (25-50) mmHg VBG HCO3 14 L (21-27) mEq/L Sodium (136-145) mEq/L Potassium (3.5-5.1) mEq/L Chloride (98-107) mEq/L Carbon Dioxide (23-29) mEq/L BUN (6-20) mg/dL Creatinine (0.70-1.30) mg/dL Est GFR ( Amer) (> 60) Est GFR (Non-Af Amer) (> 60) BUN/Creatinine Ratio (6-26) Glucose (70-105) mg/dL POC Glucose (70-99) mg/dL Calculated Osmolality (280-300) Uric Acid (2.3-7.6) mg/dL Calcium (8.6-10.3) mg/dL Total Bilirubin (0.3-1.0) mg/dL AST (13-39) Units/L ALT (7-52) Units/L Alkaline Phosphatase (34-104) Units/L Serum Total Protein (6.4-8.9) g/dL Albumin (3.5-5.7) g/dL Globulin (2.4-3.5) g/dL Albumin/Globulin Ratio (1.1-2.2) Lipase (11-82) Units/L Beta-Hydroxybutyric Acd (0.02-0.27) mmol/L Urine Color (Yellow) Urine Clarity (Clear) Urine pH (5.0-8.0) pH Units Ur Specific [place] (1.010-1.025) Urine Protein (Neg-Trace) mg/dL Urine Glucose (UA) (Normal) mg/dL Urine Ketones (Negative) mg/dL Urine Blood (Negative) Urine Nitrite (Negative) Urine Bilirubin (Negative) Urine Urobilinogen (Normal) mg/dL Ur Leukocyte Esterase (Negative) Urine Microscopic RBC (0-3) per hpf Urine Microscopic WBC (0-3) per hpf Ur Squamous Epith Cells (None-Few) per lpf Urine Bacteria (None-Few) per hpf Ur Culture Indicated? (NO) Attestation Statement - Attestation Attestation: I, Spencer You DO have provided [id number] time during the care of this patient. Detailed review the presentation, symptoms, medical history were discussed and reviewed with the advanced practice provider Kamar Hess PA-C/SCREED OPERATOR. Med ical intervention labs and imaging studies were reviewed in detail. See full documentation of physical exam and course of care in the advanced practice provider's note. I agree with the determined course of care, medical intervention and disposition put forth by the advanced practice provider. See below documentation for changes or alterations in documentation. 48-year-old male presents to the emergency room the care of family for evaluation of generalized malaise fever and abdominal discomfort. Patient has been having these symptoms for the last several days. He says that he has been trying to drink extra fluid and he described up to one case of water per day. Patient denies any other medical issues except for bipolar for which he had his lithium which was increased approximately 3 or 4 days ago. He denies any fevers chills chest pain or shortness of breath. He has had intermittent nausea and vomiting. Denies any diarrhea. He has not had a bowel movement in approximately 48 hours. Patient's abdomen is distended. Bowel sounds are diminished. He has had several surgeries on his abdomen the past including a cholecystectomy and resection of a muscle that wrapped around the apex of the stomach. Patient has been drinking significant amounts of free water home secondary to persistent thirst. He denies being a diabetic. Accu-Chek that was collected in transport by EMS showed an Accu-Chek greater than 600. Patient's abdomen is also distended. Denies any other complaints or issues. Currently he is denying chest pain shortness of breath headache vision changes nausea vomiting and diarrhea. No fevers no chills. No recent trauma or injuries. Because of the Accu-Chek as well as the distended abdomen the patient will have a detailed workup looking for diabetic ketoacidosis volume depletion electrolyte abnormalities and possible bowel obstruction. Chest x-ray CBC chemistry troponin and BNP, EKG, CT with oral and IV contrast of the abdomen. Fluids will be provided at this point once we confirm the patient's presentation as diabetic ketoacidosis and not hypovolemic related issue. Patient is otherwise clinically stable despite his description of distress and nausea and vomiting. Fluids will be started this time as well as detailed evaluation. Patient will most likely required admission wants a full workup treatment course have been completed. [place] level was added on as well. See detailed documentation of the physical exam, medical intervention, medical decision-making and disposition in the advanced practice provider's note. 1045 Patient found to have diabetic ketoacidosis based on significantly elevated glucose hyponatremia a gap of 17 as well as ketones in the blood. Patient also has a pH of 7.35. [place] level is still pending secondary to machine being down. Diabetic ketoacidosis treatment was started with fluid hydration. 2 L of fluid have been given. Normal saline was ordered again at that time. Consultation with the on-call manager wealth management was established as well secondary to the profound hyponatremia. Patient's corrected sodium is 127. Patient will require insulin drip and admission to the ICU. The manager wealth management Dr. Walden as well as intensive care physician Dr. Higgins have evaluated the patient and given recommendations. CT with oral and IV contrast is still pending to rule out obstruction. Patient did have bedbugs and needed decontamination prior to going over to the CAT scan. 35 minutes of critical care applied secondary to medical management multidisciplinary intervention. Patient will be observed in emergency room until a CT imaging the abdomen is completed. Disposition will be to the intensive care unit for continuation of care 1215 CT imaging is unremarkable for obstruction or other etiology. Patient was transported to the intensive care unit for continuation of care in stable medical condition
[2018-03-21] MEDS ORDERED: 0.45 % Sodium Chloride w/KCl 20 MEQ/1,000 ML MLS IVC SCH ×2 (12:00→15:56)
--- NOTE | 2018-03-21 12:24 | Pulmonology History & Physical ---
<Claude Jerome W - Last Filed: 03/21/18 16:00> Date of Encounter: 03/21/18 Time of Encounter: 12:50 Assessment and Plan (1) Diabetic ketoacidosis Current visit: Yes Status: Acute Patient states he is not diabetic and takes no medications for diabetes recently increased his lithium dose in the past week lithium level 0.1 (subtherapeutic) glucose: 1472 NA: 107 (corrected 129) K: 5.7 bicarb 13 VBG: ph 7.35 pCO2 26 pO2 125 HCO3 14 beta-hydroxybutyric acid > 2 DKA protocol Qualifiers: Diabetes mellitus type: type 2 Diabetes mellitus complication detail: with coma Qualified Code(s): E11.11 - Type 2 diabetes mellitus with ketoacidosis with coma (2) High anion gap metabolic acidosis Current visit: Yes Status: Acute beta hydroxybutyric acid > 2 sodium 107 (corrected 129) HCO3 13, chloride 77, albumin 3.7 gap 39 meq DKA protocol continue to monitor (3) Schizoaffective disorder, bipolar type Current visit: No Status: Acute chronic recently increased his lithium dose lithium level 0.1 (sub-therapeutic) continue to monitor (4) Hyponatremia Current visit: Yes Status: Acute Pseudohyponatremia in the setting of DKA glucose 1471, Na 107 (corrected 129) continue to monitor receiving 0.9% NaCl nephro consulted appreciate recs (5) Hyperkalemia Current visit: Yes Status: Acute potassium of 5.7 in setting of DKA likely to decrease with insulin drip continue to monitor (6) Abdominal pain Current visit: Yes Status: Acute Abdominal pain for the past four days patient states he felt relief of constipation after BM Abd CT: "no acute abnormality" Qualifiers: Abdominal location: generalized Qualified Code(s): R10.84 - Generalized abdominal pain (7) Diarrhea Current visit: Yes Status: Acute Patient states he has not had a bowel movement in the past 4 days patient has had 3 bowel movements since arriving in the ICU stool cultures sent concern for c. diff Qualifiers: Diarrhea type: unspecified type Qualified Code(s): R19.7 - Diarrhea, unspecified (8) Leukocytosis Current visit: Yes Status: Acute WBC 17.4 likely due to dehydration, reactive no known or suspected infection continue to monitor Qualifiers: Leukocytosis type: unspecified Qualified Code(s): D72.829 - Elevated white blood cell count, unspecified History of Present Illness Chief complaint: Hyperglycemia HPI: Mr. Menon is a 48 year old male who presented to the ED with abdominal pain, fever, malaise, vomiting and constipation. Patient has been having these symptoms for the past couple days. Patient states he has been very thirsty and drinking large amounts of water. Patient mentioned he has recently increased his lithium dose in the past week for bipolar disorder. patient has not had a bowel movement in the past 4 days. patient states he is not a diabetic and takes no medication for diabetes. Glucose levels came back at 1471. sodium 107 corrected to 129. potassium is at 5.7. Past Med Surg Social Fam HX - Past Medical History Medical history: hepatitis Additional medical history: Hep C Psychiatric history: anxiety, bipolar, schizophrenia, previous psychiatric hospitalization - Past Surgical History Surgical History: non-contributory, cholecystectomy, other Additional surgical history: "muscle removed at the top of my stomach when I was a baby" - Social History Smoking Status: Current every day smoker Smokeless Tobacco Status: No Alcohol use: none Drug use: marijuana - Family History Mother Adopted: No Family Member Ethnicity: Non- Living Status: Still Living Hx Family Cardiac Disorders: No Hx Family Respiratory Disorders: No Hx Family Cancer: Yes Hx Family GI Disorders: No Hx Family Endocrine Disorder: No Hx Family Neuromuscular Disorders: No Hx Family Neurologic Disorders: No Hx Family HEENT Disorders: No Hx Family Autoimmune Disorders: No Father Adopted: No Family Member Ethnicity: Non- Living Status: Still Living Hx Family Cardiac Disorders: No Hx Family Respiratory Disorders: Yes Hx Family Cancer: No Hx Family GI Disorders: No Hx Family Endocrine Disorder: No Hx Family Neuromuscular Disorders: No Hx Family Neurologic Disorders: No Hx Family HEENT Disorders: No Hx Family Autoimmune Disorders: No Medications and Allergies Tamsulosin [Flomax] 0.4 mg PO DAILY 01/18/17 [History] Albuterol Sulfate [Albuterol Inhaler] 2 puff IH Q4H PRN 02/01/17 [Rx] [place] Carbonate 600 mg PO BID 30 Days #120 capsule 06/05/17 [Rx] Ziprasidone [Geodon] 80 mg PO BID 30 Days #60 capsule 06/05/17 [Rx] Divalproex (24 HR) [Depakote ER (24 HR)] 1,000 mg PO HS 03/21/18 [History] Divalproex (24 HR) [Depakote ER (24 HR)] 250 mg PO HS 03/21/18 [History] Loxapine Succinate [Loxapine] 10 mg PO BID 03/21/18 [History] Prazosin [Minipress] 3 mg PO HS 03/21/18 [History] Pregabalin [Lyrica] 150 mg PO BID 03/21/18 [History] Trazodone HCl 200 mg PO HS 03/21/18 [History] Allergy/AdvReac Type Severity Reaction Status Date / Time No Known Allergies Allergy Verified 03/16/17 07:04 All Systems: The remainder of the systems were reviewed and are negative - Constitutional Constitutional: fatigue - Cardiovascular Cardiovascular: no chest pain - Respiratory Respiratory: no dyspnea - Gastrointestinal Gastrointestinal: abdominal pain, other (constipated), no diarrhea, no loose stools - Genitourinary Genitourinary: other (polyuria, polydipsia) Physical Examination Vital Signs: Vital Signs, Last 4 Hours Temp Pulse Resp BP Pulse Ox 03/21/18 12:23 115 20 155/115 94 03/21/18 10:11 109 20 179/117 95 03/21/18 08:44 98.1 F 112 20 185/116 96 General appearance: no acute distress Eyes: nonicteric ENT: oropharynx moist Effort: normal Inspection: normal Auscultation: bilateral: clear Cardiovascular: regular rate and rhythm Gastrointestinal: normoactive bowel sounds, soft, non-tender other (patient a poor history. concern for poor understanding of his phyiscal conditions) Results - Laboratory Findings CBC and BMP: 03/21/18 09:07 03/21/18 14:29 Abnormal lab findings: Abnormal lab results WBC 17.4 K/mcL (4.3-11.1) H 03/21/18 09:07 Neutrophils # 15.0 K/mcL (1.6-8.9) H 03/21/18 09:07 VBG pCO2 26 mmHg (41-51) L 03/21/18 09:28 VBG pO2 125 mmHg (25-50) H 03/21/18 09:28 VBG HCO3 14 mEq/L (21-27) L 03/21/18 09:28 Sodium 107 mEq/L (136-145) L* 03/21/18 09:07 Potassium 5.7 mEq/L (3.5-5.1) H 03/21/18 09:07 Chloride 77 mEq/L (98-107) L 03/21/18 09:07 Carbon Dioxide 13 mEq/L (23-29) L 03/21/18 09:07 BUN 31 mg/dL (6-20) H 03/21/18 09:07 Glucose 1471 mg/dL (70-105) H* 03/21/18 09:07 POC Glucose > 600 mg/dL (70-99) H* 03/21/18 08:44 Calculated Osmolality 307 (280-300) H 03/21/18 09:07 Calcium 8.4 mg/dL (8.6-10.3) L 03/21/18 09:07 Alkaline Phosphatase 276 Units/L (34-104) H 03/21/18 09:07 Serum Total Protein 6.2 g/dL (6.4-8.9) L 03/21/18 09:07 Beta-Hydroxybutyric Acd > 2.00 mmol/L (0.02-0.27) H 03/21/18 09:07 Ur Specific [place] 1.026 (1.010-1.025) H 03/21/18 09:17 Urine Glucose (UA) >=1000 mg/dL (Normal) H 03/21/18 09:17 Urine Ketones 15 mg/dL (Negative) H 03/21/18 09:17 Urine Blood Trace (Negative) H 03/21/18 09:17 <Johanna Fry S - Last Filed: 03/21/18 20:06> History of Present Illness HPI: Mr. Menon is a 48 year old male All Systems: The remainder of the systems were reviewed and are negative Physical Examination Vital Signs: Vital Signs, Last 4 Hours Temp Pulse Resp BP Pulse Ox 03/21/18 18:00 101 17 134/105 96 03/21/18 17:11 115 03/21/18 17:00 107 17 140/93 94 03/21/18 16:00 98.4 F 109 12 124/89 Results - Laboratory Findings CBC and BMP: 03/21/18 09:07 03/21/18 17:56 Abnormal lab findings: Abnormal lab results WBC 17.4 K/mcL (4.3-11.1) H 03/21/18 09:07 Neutrophils # 15.0 K/mcL (1.6-8.9) H 03/21/18 09:07 VBG pCO2 26 mmHg (41-51) L 03/21/18 09:28 VBG pO2 125 mmHg (25-50) H 03/21/18 09:28 VBG HCO3 14 mEq/L (21-27) L 03/21/18 09:28 Sodium 131 mEq/L (136-145) L 03/21/18 17:56 Carbon Dioxide 20 mEq/L (23-29) L 03/21/18 17:56 BUN 22 mg/dL (6-20) H 03/21/18 17:56 BUN/Creatinine Ratio 27 (6-26) H 03/21/18 17:56 Glucose 329 mg/dL (70-105) H 03/21/18 17:56 POC Glucose > 600 mg/dL (70-99) H* 03/21/18 08:44 Alkaline Phosphatase 276 Units/L (34-104) H 03/21/18 09:07 Serum Total Protein 6.2 g/dL (6.4-8.9) L 03/21/18 09:07 Beta-Hydroxybutyric Acd > 2.00 mmol/L (0.02-0.27) H 03/21/18 09:07 Ur Specific [place] 1.026 (1.010-1.025) H 03/21/18 09:17 Urine Glucose (UA) >=1000 mg/dL (Normal) H 03/21/18 09:17 Urine Ketones 15 mg/dL (Negative) H 03/21/18 09:17 Urine Blood Trace (Negative) H 03/21/18 09:17 [place] 0.1 mEq/L (0.6-1.2) L 03/21/18 09:18 - Attending Attestation I saw and evaluated this patient and my medical decision-making was reviewed with the Resident Physician. I agree with the documented findings, disposition and treatment plan as described except to the extent set forth below. We independently had [id number] contact with the patient I spent 33 minutes of Critical Care time with this patient. It involved decision making of high complexity to assess, manipulate, and support vital organ system failure and/or to prevent further life threatening deterioration of the patient's condition. The time involved in the performance of separately reportable procedures was not counted toward critical care time. Patient was admitted in ICU for severe electrolyte abnormality that is hyponatremia Patient seen and examined at bedside Labs, radiology, chart personally reviewed. Management was reviewed during multidisciplinary critical care rounds. JEWELRY DRILLING MACHINE OPERATOR: Patient is conscious oriented 3 no evidence of acute metabolic enc ephalopathy we will keep him monitor in the ICU severe hyponatremia is most likely pseudohyponatremia no need to worry about rapid correction of hyponatremia patient's sodium is going to get corrected when we correct the hyperosmolality due to hyperglycemia. Pulm: Patient has acceptable oxygenation and ventilation no acute issues no evidence of pneumonia or pulmonary edema. Cards: No acute issues hemodynamically stable FEN-GI: Nothing by mouth till he closes his gap. Patient had some nausea vomiting now he moved his bowels little bit of diarrhea low concern for infection CT abdomen is negative for any acute abdominal findings Renal: Labs and output monitored clinical evidence of diabetes insipidus is all due to hyper glycemia and diabetic ketoacidosis. Has no evidence of lithium toxicity with lithium levels are subtherapeutic. ID: No active infective issues. Heme/Onc: Thromboprophylaxis. Endo: Patient presented with diabetic ketoacidosis volume resuscitation according to DKA protocol electrolytes to be monitored and replenished according to DKA protocol. Integ/MSK: Skin Care per routine ICU Nursing Protocol to prevent ulcers. Lines: All lines examined without evidence of infection : Dispo: To be monitored in the ICU CODE: Full Code
[2018-03-21] MEDS ORDERED: D5% in 0.45% NACL w KCl 20 MEQ/1,000 ML MLS IVC PRN ×2 (14:10→15:56)
[2018-03-21] MEDS ORDERED: 0.9 % Sodium Chloride w KCl 20 MEQ/1,000 ML MLS IVC SCH (14:15)
[2018-03-21] MEDS ORDERED: 0.9 % Sodium Chloride 1,000 ML IV SCH (14:30)
[2018-03-21 15:13] LABS: BUN/Creatinine Ratio 25 (6-26); Blood Urea Nitrogen 28 mg/dL (6-20); Calcium 9.8 mg/dL (8.6-10.3); Carbon Dioxide 16 mEq/L (23-29); Chloride 95 mEq/L (98-107); Glucose 625 mg/dL (70-105); Osmolality,Calculated 301 (280-300); Sodium 128 mEq/L (136-145); eGFR For Non-African Americans > 60 (> 60)
[2018-03-21 18:34] LABS: BUN/Creatinine Ratio 27 (6-26); Blood Urea Nitrogen 22 mg/dL (6-20); Calcium 8.6 mg/dL (8.6-10.3); Carbon Dioxide 20 mEq/L (23-29); Chloride 102 mEq/L (98-107); Glucose 329 mg/dL (70-105); Osmolality,Calculated 288 (280-300); Potassium 3.6 mEq/L (3.5-5.1); Sodium 131 mEq/L (136-145); eGFR For Non-African Americans > 60 (> 60)
[2018-03-21] MEDS: 0.9 % Sodium Chloride 1,000 ML IV SCH (19:35)
[2018-03-21] MEDS: 0.9 % Sodium Chloride w KCl 20 MEQ/1,000 ML MLS IVC SCH (19:36)
[2018-03-21] MEDS ORDERED: Dextrose Gel 15 GM/37.5 ML TUBE PO PRN ×2 (20:28)
[2018-03-21] MEDS ORDERED: D5% in Water 1,000 ML IVC PRN (20:28)
[2018-03-21] MEDS: Insulin DETEMIR 100 UNIT/ML X5UNITS SQ SCH (21:43)
[2018-03-21] MEDS: Insulin LISPRO 300 UNITS/3 ML VIAL SQ SCH (21:47)
[2018-03-21 22:10] LABS: BUN/Creatinine Ratio 19 (6-26); Blood Urea Nitrogen 18 mg/dL (6-20); Calcium 8.1 mg/dL (8.6-10.3); Carbon Dioxide 24 mEq/L (23-29); Chloride 102 mEq/L (98-107); Glucose 294 mg/dL (70-105); Osmolality,Calculated 289 (280-300); Potassium 3.5 mEq/L (3.5-5.1); Sodium 133 mEq/L (136-145); eGFR For Non-African Americans > 60 (> 60)
[2018-03-22 02:27] LABS: BUN/Creatinine Ratio 19 (6-26); Blood Urea Nitrogen 16 mg/dL (6-20); Carbon Dioxide 20 mEq/L (23-29); Chloride 101 mEq/L (98-107); Glucose 283 mg/dL (70-105); Osmolality,Calculated 287 (280-300); Phosphorous 2.2 mg/dL (2.7-4.5); Potassium 3.4 mEq/L (3.5-5.1); Sodium 133 mEq/L (136-145); eGFR For Non-African Americans > 60 (> 60)
[2018-03-22 02:28] LABS: Alanine Aminotransferase 38 Units/L (7-52); Albumin 3.5 g/dL (3.5-5.7); Albumin/Globulin Ratio 1.4 (1.1-2.2); Alkaline Phosphatase 95 Units/L (34-104); Aspartate Amino Transferase 35 Units/L (13-39); BUN/Creatinine Ratio 19 (6-26); Bilirubin,Total 0.3 mg/dL (0.3-1.0); Blood Urea Nitrogen 16 mg/dL (6-20); Calcium 8.1 mg/dL (8.6-10.3); Carbon Dioxide 19 mEq/L (23-29); Chloride 102 mEq/L (98-107); Globulin 2.5 g/dL (2.4-3.5); Glucose 283 mg/dL (70-105); Osmolality,Calculated 287 (280-300); Potassium 3.4 mEq/L (3.5-5.1); Sodium 133 mEq/L (136-145); eGFR For Non-African Americans > 60 (> 60)
[2018-03-22 02:38] LABS: Basophils # 0.1 K/mcL (0.0-0.2); Basophils % 0.4 %; Eosinophils # 0.3 K/mcL (0.0-0.6); Eosinophils % 1.3 %; Hematocrit 40.4 % (37.5-50.1); Hemoglobin 14.8 g/dL (12.9-16.9); Immature Granulocytes % 1.3 % (0-4); Lymphocytes # 3.4 K/mcL (0.6-4.6); Lymphocytes % 14.9 %; Mean Corpuscular HGB Conc 36.6 g/dL (31.6-35.5); Mean Corpuscular Hemoglobin 31.6 pg (28.0-33.3); Mean Corpuscular Volume 86.3 fL (83.0-100.0); Mean Platelet Volume 10.9 fL (9.4-12.4); Monocytes # 1.5 K/mcL (0.0-1.3); Monocytes % 6.7 %; Neutrophils # 17.2 K/mcL (1.6-8.9); Platelet Count 296 K/mcL (140-400); Red Blood Count 4.68 M/mcL (4.19-5.50); Red Cell Distribution Width 11.7 % (11.5-14.5); Segmented Neutrophils % 75.4 %
--- NOTE | 2018-03-22 06:26 | Event Note ---
Date of Encounter: 03/22/18 Time of Encounter: 06:24 Nephrology Chart Review/Update His hyponatremia was primarily a pseudohyponatremia from his very severely elevated hyperglycemia. His hyponatremia has dramatically improved along with correction of the DKA. Pseudohyponatremia would not require a fluid restriction or 3%, or etc. I recommend controlling his diabetes. Will sign-off at this point. Thank you for having consulted the [facility].
[2018-03-22 06:30] LABS: Hematocrit 40.3 % (37.5-50.1); Hemoglobin 14.4 g/dL (12.9-16.9)
[2018-03-22 06:47] LABS: Estimated Average Glucose 398 mg/dl; Hemoglobin A1C 15.5 %
[2018-03-22] MEDS: Insulin LISPRO 300 UNITS/3 ML VIAL SQ SCH ×4 (08:31→22:19)
[2018-03-22] MEDS: Pregabalin 75 MG CAPSULE PO SCH ×2 (08:31→22:17)
[2018-03-22] MEDS: (Loxapine Succinate [Loxapine] 10 MG) PO SCH ×2 (08:32→22:13)
[2018-03-22] MEDS: Ziprasidone 80 MG CAPSULE PO SCH ×2 (10:39→22:18)
--- NOTE | 2018-03-22 11:55 | Internal Med Progress Note ---
Hospitalist Progress Note - Encounter Date of Encounter: 03/22/18 Time of Encounter: 10:00 - Subjective Interval History: H&P reviewed. 48-year-old male with no history of diabetes presented to the ED with abdominal pain and was found to be in DKA. Resolved quickly with IVF and IV insulin and was transitioned overnight with levemir 26U. States that he feels better although he continues to experience mild epigastric discomfort. Denies N/V, last BM was 11pm last night. C diff sample was sent from ICU but was rejected as the sample was inappropriate for cdiff testing. - Exam Vitals: Temp Pulse Resp BP Pulse Ox 98.1 F 76 18 129/91 95 03/22/18 08:14 03/22/18 08:14 03/22/18 08:14 03/22/18 08:14 03/22/18 08:14 Exam: General: Alert and oriented, not in acute distress. Cardiovascular:Normal S1 & S2, No JVD. Pulse regular. Lungs: clear to auscultation, no wheezes/rales Abdomen:Soft, minimal epigastric tenderness, no rigidity. Bowel sounds active Extremities:No deformity or swelling Neurological:Normal cognition and motor skills. Non-focal Skin:Normal color, no rash, no lesions. - Assessment and Plan (1) Diabetic ketoacidosis Current Visit: Yes Status: Resolved Assessment and Plan: Resolved rapidly with IV fluid and IV insulin. Transition to subcutaneous Levemir 26 units overnight, BG 324 this AM Will observe his blood glucose today; if persistently elevated above 250, will increase levemir to 30U keep moderate dose sliding scale bosom presser consult (2) Abdominal pain Current Visit: Yes Status: Acute Assessment and Plan: Likely due to the above CT negative, urinalysis was unremarkable, normal lipase. was reported to have diarrhea for which stool sample was sent overnight but was inappropriate for C diff low suspicion for c diff colitis, monitor (3) Diarrhea Current Visit: Yes Status: Acute Assessment and Plan: as above (4) Leukocytosis Current Visit: Yes Status: Acute Assessment and Plan: although it is higher today, still suspect it was reactive process from DKA No foci of infection identified, would favor monitoring off antibiotics (5) Hypokalemia Current Visit: Yes Status: Acute Assessment and Plan: Likely due to IV insulin, replete orally (6) Depression Current Visit: No Status: Acute Assessment and Plan: Resume home meds (7) Schizoaffective disorder, bipolar type Current Visit: No Status: Acute Assessment and Plan: Resume home meds DVT Prophylaxis: SCD - Time Spent with Patient Total time spent is greater than 50% in coordination of care (as documented) at patient's floor/unit and/or counseling patient: Plan of Care Discussed with: patient Internal Medicine: Result - Labs CBC & Chem 7: 03/22/18 06:16 03/22/18 01:57 Labs: Short CBC 03/22/18 03/22/18 Range/Units 02:28 06:16 WBC 22.8 H (4.3-11.1) K/mcL Hgb 14.8 14.4 (12.9-16.9) g/dL Hct 40.4 40.3 (37.5-50.1) % Plt Count 296 (140-400) K/mcL Neutrophils # 17.2 H (1.6-8.9) K/mcL BMP 03/21/18 03/21/18 03/21/18 14:29 17:56 21:39 Sodium 128 L D 131 L 133 L Potassium 3.0 L D 3.6 3.5 Chloride 95 L 102 102 Carbon Dioxide 16 L 20 L 24 BUN 28 H 22 H 18 Creatinine 1.11 0.82 0.93 Glucose 625 H* 329 H 294 H Calcium 9.8 8.6 8.1 L 03/22/18 03/22/18 03/22/18 01:57 01:57 01:57 Sodium 133 L 133 L Potassium 3.4 L 3.4 L Chloride 101 102 Carbon Dioxide 20 L 19 L BUN 16 16 Creatinine 0.85 0.86 Glucose 299 H 283 H 283 H Calcium 8.0 L 8.1 L Liver Function 03/22/18 Range/Units 01:57 Total Bilirubin 0.3 (0.3-1.0) mg/dL AST 35 (13-39) Units/L ALT 38 (7-52) Units/L Alkaline Phosphatase 95 (34-104) Units/L Albumin 3.5 (3.5-5.7) g/dL - Impressions Impressions Abdomen/Pelvis CT 03/21/18 11:00 IMPRESSION: 1. No acute abnormality. D/ / Basiilo Hunt MD / Basilio Hunt MD Interpreting Provider: Basilio Hunt MD Chest X-Ray 03/21/18 11:52 IMPRESSION: Low lung volumes. Discoid atelectasis at the bilateral lung bases. No acute cardiopulmonary disease. D/ / Jonathan Dc MD / Jonathan Dc MD Interpreting Provider: Jonathan Dc MD Consult Discharge Plan - Plan Referrals: NONE,PCP [Primary Care Provider] - (1) Diabetic ketoacidosis Qualifiers: Diabetes mellitus type: type 2 Diabetes mellitus complication detail: without coma Qualified Code(s): E11.10 - Type 2 diabetes mellitus with ketoacidosis without coma (2) Abdominal pain Qualifiers: Abdominal location: generalized Qualified Code(s): R10.84 - Generalized abdominal pain (3) Diarrhea Qualifiers: Diarrhea type: unspecified type Qualified Code(s): R19.7 - Diarrhea, unspecified (4) Leukocytosis Qualifiers: Leukocytosis type: unspecified Qualified Code(s): D72.829 - Elevated white blood cell count, unspecified (6) Depression Qualifiers: Depression Type: unspecified Qualified Code(s): F32.9 - Major depressive disorder, single episode, unspecified
[2018-03-22] MEDS: Lithium Carbonate 300 MG CAPSULE PO SCH ×2 (12:14→23:15)
[2018-03-22] MEDS ORDERED: Divalproex (24 HR) 250 MG TABLET PO SCH (21:00)
[2018-03-22] MEDS ORDERED: Divalproex (24 HR) 500 MG TABLET PO SCH (21:00)
[2018-03-22] MEDS ORDERED: traZODone 50 MG TABLET PO SCH (21:00)
[2018-03-22] MEDS: Insulin DETEMIR 100 UNIT/ML X5UNITS SQ SCH (23:16)
[2018-03-23 05:19] LABS: Basophils # 0.1 K/mcL (0.0-0.2); Basophils % 0.5 %; Eosinophils # 0.2 K/mcL (0.0-0.6); Eosinophils % 1.8 %; Hematocrit 40.1 % (37.5-50.1); Hemoglobin 14.2 g/dL (12.9-16.9); Immature Granulocytes % 1.9 % (0-4); Lymphocytes # 4.1 K/mcL (0.6-4.6); Lymphocytes % 32.2 %; Mean Corpuscular HGB Conc 35.4 g/dL (31.6-35.5); Mean Corpuscular Hemoglobin 31.3 pg (28.0-33.3); Mean Corpuscular Volume 88.5 fL (83.0-100.0); Monocytes % 8.1 %; Platelet Count 247 K/mcL (140-400); Red Blood Count 4.53 M/mcL (4.19-5.50); Segmented Neutrophils % 55.5 %
[2018-03-23 05:37] LABS: Alanine Aminotransferase 29 Units/L (7-52); Albumin 2.9 g/dL (3.5-5.7); Albumin/Globulin Ratio 1.3 (1.1-2.2); Alkaline Phosphatase 68 Units/L (34-104); Aspartate Amino Transferase 21 Units/L (13-39); BUN/Creatinine Ratio 14 (6-26); Bilirubin,Total 0.2 mg/dL (0.3-1.0); Blood Urea Nitrogen 12 mg/dL (6-20); Calcium 7.9 mg/dL (8.6-10.3); Carbon Dioxide 24 mEq/L (23-29); Chloride 106 mEq/L (98-107); Globulin 2.3 g/dL (2.4-3.5); Glucose 332 mg/dL (70-105); Magnesium 2.1 mg/dL (1.6-2.6); Osmolality,Calculated 295 (280-300); Potassium 3.1 mEq/L (3.5-5.1); Sodium 136 mEq/L (136-145); Total Protein 5.2 g/dL (6.4-8.9); eGFR For Non-African Americans > 60 (> 60)
[2018-03-23 08:20] VITALS: BP 138/80
[2018-03-23] MEDS: Insulin LISPRO 300 UNITS/3 ML VIAL SQ SCH (08:31)
[2018-03-23] MEDS: Ziprasidone 80 MG CAPSULE PO SCH (08:37)
[2018-03-23] MEDS: Pregabalin 75 MG CAPSULE PO SCH (08:37)
--- NOTE | 2018-03-23 10:08 | Discharge Summary ---
- NOTES TO OUTPATIENT PROVIDER Notes to Outpatient Provider: Patient was admitted for diabetic ketoacidosis, did not carry prior diagnosis of diabetes before the admission. A1c 15.5. Improved with IV insulin and IV fluids per DKA protocol and he will be discharged on 30 units of Levemir at HS and lispro 10 units 3 times a day with karson taylor. Orders not resulted at time of discharge: Pending orders 03/21/18 14:50 Culture,Stool [RM] Routine 03/24/18 04:00 Comprehensive Metabolic Panel AM 0400 Date of Encounter: 03/23/18 Time of Encounter: 08:00 - Discharge Diagnosis (1) Diabetic ketoacidosis Priority: Primary Status: Resolved Qualifiers: Diabetes mellitus type: type 2 Diabetes mellitus complication detail: wit hout coma Qualified Code(s): E11.10 - Type 2 diabetes mellitus with ketoacidosis without coma (2) Abdominal pain Priority: Secondary Status: Acute Qualifiers: Abdominal location: generalized Qualified Code(s): R10.84 - Generalized abdominal pain (3) Diarrhea Priority: Secondary Status: Acute Qualifiers: Diarrhea type: unspecified type Qualified Code(s): R19.7 - Diarrhea, unspecified (4) Leukocytosis Priority: Secondary Status: Acute Qualifiers: Leukocytosis type: unspecified Qualified Code(s): D72.829 - Elevated white blood cell count, unspecified (5) Hypokalemia Priority: Secondary Status: Acute (6) Depression Priority: Secondary Status: Acute Qualifiers: Depression Type: unspecified Qualified Code(s): F32.9 - Major depressive disorder, single episode, unspecified (7) Schizoaffective disorder, bipolar type Priority: Secondary Status: Acute Hospital course: Mr. Menon is a 48 year old male was admitted for diabetic ketoacidosis, did not carry a prior diagnosis of diabetes before the admission. A1c 15.5. Improved with IV insulin and IV fluids per DKA protocol and he will be discharged on 30 units of Levemir at HS and lispro 10 units 3 times a day with meal. He was noted to have leukocytosis during his admission, as high as 22, which was thought to be reactive in the setting of diabetic emergency. It spontaneously improved to 13 at the time of discharge. Diabetic education was also provided throughout his hospital stay. Discharge discussed with: patient, nurse - Time Spent with Patient Total time spent providing and/or coordinating discharge services: 32 mins - Discharge Medications Prescriptions: Insulin DETEMIR [Levemir Flextouch] 30 unit SQ HS #5 insuln.pen Insulin LISPRO [Humalog Kwikpen U-100] 10 unit SQ TIDWM #5 each Home Medications: Tamsulosin [Flomax] 0.4 mg PO DAILY 01/18/17 [History] Albuterol Sulfate [Albuterol Inhaler] 2 puff IH Q4H PRN 02/01/17 [Rx] [place] Carbonate 600 mg PO BID 30 Days #120 capsule 06/05/17 [Rx] Ziprasidone [Geodon] 80 mg PO BID 30 Days #60 capsule 06/05/17 [Rx] Divalproex (24 HR) [Depakote ER (24 HR)] 1,000 mg PO HS 03/21/18 [History] Divalproex (24 HR) [Depakote ER (24 HR)] 250 mg PO HS 03/21/18 [History] Loxapine Succinate [Loxapine] 10 mg PO BID 03/21/18 [History] Prazosin [Minipress] 3 mg PO HS 03/21/18 [History] Pregabalin [Lyrica] 150 mg PO BID 03/21/18 [History] Trazodone HCl 200 mg PO HS 03/21/18 [History] Insulin DETEMIR [Levemir Flextouch] 30 unit SQ HS #5 insuln.pen 03/23/18 [Rx] Insulin LISPRO [Humalog Kwikpen U-100] 10 unit SQ TIDWM #5 each 03/23/18 [Rx] Allergies/Adverse Reactions: Allergy/AdvReac Type Severity Reaction Status Date / Time No Known Allergies Allergy Verified 03/16/17 07:04 Date of admission: 03/21/18 11:44 Primary care physician: PCP NONE Consults: 03/21/18 10:33 Consult to Nephrology [CONS] Stat Consulting Provider: [facility]/SUMIT/ISABEL/[facility]O Reason for Consult: diabetes insipidus, hyponatremia Call Completed: Yes 03/22/18 11:57 consult to type disk quality control supervisor [Consult to Nutrition] [CONS] Routine Comment: Consulting Provider: NUTRITION Reason for Dietary Consult: Diet Education - Constitutional Vitals: Temp Pulse Resp BP Pulse Ox 98.4 F 87 20 138/80 99 03/23/18 08:15 03/23/18 08:15 03/23/18 08:15 03/23/18 08:15 03/23/18 08:15 Exam: General: Alert and oriented, not in acute distress. Cardiovascular:Normal S1 & S2, No JVD. Pulse regular. Lungs: clear to auscultation, no wheezes/rales Abdomen:Soft, nontender Extremities:No deformity or swelling Neurological:Normal cognition and motor skills. Non-focal Skin:Normal color, no rash, no lesions. - Patient Status Disposition: Home Health Service Condition: Good - Discharge Instructions Instructions: Diabetes Mellitus Type 2 in Adults (DC) Follow Up With: NONE,PCP [Primary Care Provider] - Forms: ED Satisfaction Letter, Work/School Release - Diet and Activity Activity: resume usual activities as tolerated Diet: low fat, low cholesterol
--- NOTE | 2018-03-23 10:11 | Physician Discharge Referral ---
Home Health/Hosp Referral Info Transfer to: Home Health - Diagnosis (1) Diabetic ketoacidosis Priority: Primary Status: Resolved (2) Abdominal pain Priority: Secondary Status: Acute (3) Diarrhea Priority: Secondary Status: Acute (4) Leukocytosis Priority: Secondary Status: Acute (5) Hypokalemia Priority: Secondary Status: Acute (6) Depression Priority: Secondary Status: Acute (7) Schizoaffective disorder, bipolar type Priority: Secondary Status: Acute - Respiratory Orders Smoking Cessation: Smoking cessation has been advised. For more information, call the [place] Tobacco Quit Line at 0-005-AKMT-NOW. - Diet/Nutrition Diet/Nutrition Orders: No Concentrated Sweets - Services Needed Following services are medically necessary services: Nursing (newly diagnosed DM, discharged on levemir 30U at HS and lispro 10U TIDWM) - Transfer Medications Prescriptions: Insulin DETEMIR [Levemir Flextouch] 30 unit SQ HS #5 insuln.pen Insulin LISPRO [Humalog Kwikpen U-100] 10 unit SQ TIDWM #5 each Home Medications: Tamsulosin [Flomax] 0.4 mg PO DAILY 01/18/17 [History] Albuterol Sulfate [Albuterol Inhaler] 2 puff IH Q4H PRN 02/01/17 [Rx] [place] Carbonate 600 mg PO BID 30 Days #120 capsule 06/05/17 [Rx] Ziprasidone [Geodon] 80 mg PO BID 30 Days #60 capsule 06/05/17 [Rx] Divalproex (24 HR) [Depakote ER (24 HR)] 1,000 mg PO HS 03/21/18 [History] Divalproex (24 HR) [Depakote ER (24 HR)] 250 mg PO HS 03/21/18 [History] Loxapine Succinate [Loxapine] 10 mg PO BID 03/21/18 [History] Prazosin [Minipress] 3 mg PO HS 03/21/18 [History] Pregabalin [Lyrica] 150 mg PO BID 03/21/18 [History] Trazodone HCl 200 mg PO HS 03/21/18 [History] Insulin DETEMIR [Levemir Flextouch] 30 unit SQ HS #5 insuln.pen 03/23/18 [Rx] Insulin LISPRO [Humalog Kwikpen U-100] 10 unit SQ TIDWM #5 each 03/23/18 [Rx] Allergies/Adverse Reactions: Allergy/AdvReac Type Severity Reaction Status Date / Time No Known Allergies Allergy Verified 03/16/17 07:04 Certification: Further, I certify that my clinical findings support that this patient is homebound (i.e. absences from home require considerable and taxing effort and are for medical reasons or confucianism services or infrequently or short duration when for other reasons) because: Homebound Reason: Patient requires assistance of a person or device to safely leave home Attestation: My signature below is to certify that this patient is under my care and that I, or nurse practitioner, or a physician's orthopaedic physician assistant working with me, has a [id number] encounter with this patient.
[2018-03-23] MEDS: Lithium Carbonate 300 MG CAPSULE PO SCH (11:06)
[2018-03-23] MEDS: (Loxapine Succinate [Loxapine] 10 MG) PO SCH (11:09)
--- NOTE | 2018-03-23 23:15 | Electrocardiograph Report ---
[address] [address] Test Date: 2018-03-21 Pat Name: Darrian Menon Department: 112 Room: 2N12 Gender: M Experimental Physicist: WAYNE : 1970 Requested By: Spencer You Order Number: [id number] Reading MD: Last Linda Measurements Intervals Kinsey Rate: 97 P: 51 DC: 152 QRS: 27 QRSD: 90 T: 58 QT: 302 QTc: 356 Interpretive Statements SINUS RHYTHM NONSPECIFIC T-WAVE ABNORMALITY Electronically Signed On 03-23-2018 23:13:08 EDT by Last Linda
== END 2018-03-23 11:52 | disposition home health service (06) | DRG 638 ==
LOC: EMEROOARM 08:39 → SUATTDRO 11:44 → ICNU 11:44 → 2NNU 23:36 → 2ANU 03-22 16:31
PROVIDERS: ADMIT Internal Medicine Pulmonary Disease; ATTEND Internal Medicine

== ENCOUNTER 2018-12-16 20:23 | Inpatient (IN) ==
--- NOTE | 2018-12-16 20:38 | Emergency Department Note ---
Disposition Clinical Impression: Suicidal ideation Disposition: Admitted As Inpatient Condition: Fair Referrals: NONE,PCP [Primary Care Provider] - Time of Disposition: 22:40 General Adult HPI - General Chief complaint: ED Psychiatric Symptoms Stated complaint: SI Time Seen by Provider: 12/16/18 20:36 Source: patient Limitations: no limitations Nursing Notes Reviewed: Yes Vital Signs Reviewed: Yes - History of Present Illness HPI Narrative: Patient presented to the ED with suicidal thoughts. Patient states that his stepmother and mother split up. He is concerned he may become homeless. Once to kill himself by overdosing on muscle relaxers. He denies drinking any alcohol. He denies any overdose attempts today. He does have a history of schizophrenia. Pain Scale: 0 - Related Data Home Medications Medication Instructions Recorded Confirmed Tamsulosin [Flomax] 0.4 mg PO DAILY 01/18/17 12/16/18 Divalproex (24 HR) [Depakote ER 1,000 mg PO HS 03/21/18 12/16/18 (24 HR)] Divalproex (24 HR) [Depakote ER 250 mg PO HS 03/21/18 12/16/18 (24 HR)] Loxapine Succinate [Loxapine] 10 mg PO BID 03/21/18 12/16/18 Prazosin [Minipress] 3 mg PO HS 03/21/18 12/16/18 Pregabalin [Lyrica] 150 mg PO BID 03/21/18 12/16/18 Trazodone HCl 50 mg PO HS 03/21/18 12/16/18 Previous Rx's Medication Instructions Recorded Albuterol Sulfate [Proventil 2 puff IH Q4H PRN 02/01/17 Inhaler] Ziprasidone [Geodon] 80 mg PO BID 30 Days #60 capsule 06/05/17 Insulin DETEMIR [Levemir Flextouch] 30 unit SQ HS #5 insuln.pen 03/23/18 Insulin LISPRO [Humalog Kwikpen 10 unit SQ TIDWM #5 each 03/23/18 U-100] Cyclobenzaprine [Flexeril] 10 mg PO TID #15 tablet 06/12/18 Ibuprofen 800 mg PO TID #30 tablet 09/02/18 Allergies Allergy/AdvReac Type Severity Reaction Status Date / Time No Known Allergies Allergy Verified 09/02/18 13:21 All systems ED: reviewed and negative except as stated. Constitutional: Denies: fever Cardiovascular: Denies: chest pain Respiratory: Denies: dyspnea Gastrointestinal: Denies: vomiting, diarrhea Musculoskeletal: Reports: back pain (Chronic and unchanged) Psychiatric: Reports: anxiety, depression, suicidal thoughts Past Medical History - Past Medical History Attestation: Yes The following information was validated with the patient. Source: patient Medical history: Reports: hepatitis Surgical history: Reports: non-contributory, cholecystectomy, other Psychiatric history: Reports: anxiety, bipolar, schizophrenia, previous psychiatric hospitalization - Social History Smoking Status: Current every day smoker Smokeless Tobacco Status: No Alcohol use: Reports: none Drug use: Reports: marijuana Physical Exam - General Limitations: no limitations General appearance: alert, in no apparent distress - Head Head exam: atraumatic, normocephalic - Eye Eye exam: Present: normal appearance, PERRL - Neck Neck exam: Present: normal inspection - Chest Chest inspection: Present: normal inspection, symmetric chest wall rise - Respiratory Respiratory exam: Present: normal lung sounds bilaterally - Cardiovascular Cardiovascular exam: Present: regular rate, normal rhythm - Abdominal Exam Abdominal exam: Present: soft, Non-Tender - Neurological Exam Neurological exam: Present: alert - Psychiatric Psychiatric exam: Present: agitated, anxious, other (But cooperative) Course Course Narrative: Patient is cooperative at this time. Shafer slip on chart. Medical clearance and evaluation by 1A. - Reevaluation(s) Reevaluation #1: Patient with a mild leukocytosis. No source. No fever. Likely reactive. Patient is medically cleared at this time. Contacting [facility]. Time: 21:38 Vital Signs Temperature 99 F 12/16/18 20:28 Pulse Rate 103 12/16/18 20:28 Respiratory Rate 20 12/16/18 20:28 Blood Pressure 159/105 12/16/18 20:28 O2 Sat by Pulse Oximetry 98 12/16/18 20:28 Temperature 99 F 12/16/18 20:28 Pulse Rate 103 12/16/18 20:28 Respiratory Rate 20 12/16/18 20:28 Blood Pressure 159/105 12/16/18 20:28 O2 Sat by Pulse Oximetry 98 12/16/18 20:28 Oxygen Delivery Oxygen Delivery Room Air Medical Decision Making - MDM Narrative Medical decision making narrative: Patient was evaluated by and accepted to [facility]. - Lab Data Result diagrams: 12/16/18 20:54 12/16/18 20:54 Lab Results 12/16/18 12/16/18 12/16/18 Range/Units 20:51 20:51 20:54 WBC 14.6 H (4.3-11.1) K/mcL RBC 5.23 (4.19-5.50) M/mcL Hgb 15.3 (12.9-16.9) g/dL Hct 45.8 (37.5-50.1) % MCV 87.6 (83.0-100.0) fL MCH 29.3 (28.0-33.3) pg MCHC 33.4 (31.6-35.5) g/dL RDW 15.4 H (11.5-14.5) % Plt Count 277 (140-400) K/mcL MPV 10.4 (9.4-12.4) fL Immature Gran % 0.5 (0-4) % Seg Neutrophils % 71.2 % Lymphocytes % 21.9 % Monocytes % 5.6 % Eosinophils % 0.5 % Basophils % 0.3 % Neutrophils # 10.4 H (1.6-8.9) K/mcL Lymphocytes # 3.2 (0.6-4.6) K/mcL Monocytes # 0.8 (0.0-1.3) K/mcL Eosinophils # 0.1 (0.0-0.6) K/mcL Basophils # 0.0 (0.0-0.2) K/mcL Sodium (136-145) mEq/L Potassium (3.5-5.1) mEq/L Chloride (98-107) mEq/L Carbon Dioxide (23-29) mEq/L BUN (6-20) mg/dL Creatinine (0.70-1.30) mg/dL Est GFR ( Amer) (> 60) Est GFR (Non-Af Amer) (> 60) BUN/Creatinine Ratio (6-26) Glucose (70-105) mg/dL Calculated Osmolality (280-300) Calcium (8.6-10.3) mg/dL Urine Color Yellow (Yellow) Urine Clarity Clear (Clear) Urine pH 7.0 (5.0-8.0) pH Units Ur Specific [place] 1.021 (1.010-1.025) Urine Protein Negative (Neg-Trace) mg/dL Urine Glucose (UA) Normal (Normal) mg/dL Urine Ketones 15 H (Negative) mg/dL Urine Blood Negative (Negative) Urine Nitrite Negative (Negative) Urine Bilirubin Small H (Negative) Urine Urobilinogen Normal (Normal) mg/dL Ur Leukocyte Esterase Small H (Negative) Urine Microscopic RBC 0-3 (0-3) per hpf Urine Microscopic WBC 3-5 H (0-3) per hpf Ur Squamous Epith Cells Moderate H (None-Few) per lpf Urine Bacteria None Seen (None-Few) per hpf Hyaline Casts None Seen (None-Few) per lpf Salicylates (15.0-30.0) mg/dL Urine Opiates Screen Negative (Esfgra=033) ng/mL Ur Buprenorphine Scrn Negative (Cutoff=5) ng/mL Acetaminophen (10-20) mcg/mL Ur Barbiturates Screen Negative (Ngpcpz=512) ng/mL Valproic Acid (50-100) mcg/mL Ur Phencyclidine Scrn Negative (Cutoff=25) ng/mL Ur Amphetamines Screen Negative (Kekejx=0159) ng/mL U Benzodiazepines Scrn Negative (Dmxywi=935) ng/mL [place] (0.6-1.2) mEq/L Urine Cocaine Screen Negative (Cutoff= 300) ng/mL U Marijuana (THC) Screen Positive H (Cutoff = 50) ng/mL Ur Drug Screen Interp See Below Ethyl Alcohol (Less than 10) mg/dL 12/16/18 12/16/18 Range/Units 20:54 20:54 WBC (4.3-11.1) K/mcL RBC (4.19-5.50) M/mcL Hgb (12.9-16.9) g/dL Hct (37.5-50.1) % MCV (83.0-100.0) fL MCH (28.0-33.3) pg MCHC (31.6-35.5) g/dL RDW (11.5-14.5) % Plt Count (140-400) K/mcL MPV (9.4-12.4) fL Immature Gran % (0-4) % Seg Neutrophils % % Lymphocytes % % Monocytes % % Eosinophils % % Basophils % % Neutrophils # (1.6-8.9) K/mcL Lymphocytes # (0.6-4.6) K/mcL Monocytes # (0.0-1.3) K/mcL Eosinophils # (0.0-0.6) K/mcL Basophils # (0.0-0.2) K/mcL Sodium 139 (136-145) mEq/L Potassium 3.4 L (3.5-5.1) mEq/L Chloride 107 (98-107) mEq/L Carbon Dioxide 20 L (23-29) mEq/L BUN 14 (6-20) mg/dL Creatinine 1.21 (0.70-1.30) mg/dL Est GFR ( Amer) > 60 (> 60) Est GFR (Non-Af Amer) > 60 (> 60) BUN/Creatinine Ratio 12 (6-26) Glucose 186 H (70-105) mg/dL Calculated Osmolality 293 (280-300) Calcium 9.6 (8.6-10.3) mg/dL Urine Color (Yellow) Urine Clarity (Clear) Urine pH (5.0-8.0) pH Units Ur Specific [place] (1.010-1.025) Urine Protein (Neg-Trace) mg/dL Urine Glucose (UA) (Normal) mg/dL Urine Ketones (Negative) mg/dL Urine Blood (Negative) Urine Nitrite (Negative) Urine Bilirubin (Negative) Urine Urobilinogen (Normal) mg/dL Ur Leukocyte Esterase (Negative) Urine Microscopic RBC (0-3) per hpf Urine Microscopic WBC (0-3) per hpf Ur Squamous Epith Cells (None-Few) per lpf Urine Bacteria (None-Few) per hpf Hyaline Casts (None-Few) per lpf Salicylates < 2.5 L (15.0-30.0) mg/dL Urine Opiates Screen (Pigcsj=880) ng/mL Ur Buprenorphine Scrn (Cutoff=5) ng/mL Acetaminophen < 10 L (10-20) mcg/mL Ur Barbiturates Screen (Noffza=295) ng/mL Valproic Acid 42 L (50-100) mcg/mL Ur Phencyclidine Scrn (Cutoff=25) ng/mL Ur Amphetamines Screen (Zglgpm=2779) ng/mL U Benzodiazepines Scrn (Ffjtqk=993) ng/mL [place] 0.0 L (0.6-1.2) mEq/L Urine Cocaine Screen (Cutoff= 300) ng/mL U Marijuana (THC) Screen (Cutoff = 50) ng/mL Ur Drug Screen Interp Ethyl Alcohol < 10 (Less than 10) mg/dL
[2018-12-16 21:09] LABS: Bilirubin,Urine Small (Negative); Blood,Urine Negative (Negative); Clarity,Urine Clear (Clear); Color,Urine Yellow (Yellow); Glucose,Urine (UA) Normal (Normal); Ketones,Urine 15 mg/dL (Negative); Leukocyte Esterase,Urine Small (Negative); Nitrite,Urine Negative (Negative); Protein,Urine Negative (Neg-Trace); Specific Gravity,Urine 1.021 (1.010-1.025); Urobilinogen,Urine Normal (Normal)
[2018-12-16 21:12] LABS: Basophils % 0.3 %; Eosinophils # 0.1 K/mcL (0.0-0.6); Eosinophils % 0.5 %; Hematocrit 45.8 % (37.5-50.1); Hemoglobin 15.3 g/dL (12.9-16.9); Immature Granulocytes % 0.5 % (0-4); Lymphocytes # 3.2 K/mcL (0.6-4.6); Lymphocytes % 21.9 %; Mean Corpuscular HGB Conc 33.4 g/dL (31.6-35.5); Mean Corpuscular Hemoglobin 29.3 pg (28.0-33.3); Mean Corpuscular Volume 87.6 fL (83.0-100.0); Mean Platelet Volume 10.4 fL (9.4-12.4); Monocytes # 0.8 K/mcL (0.0-1.3); Monocytes % 5.6 %; Neutrophils # 10.4 K/mcL (1.6-8.9); Platelet Count 277 K/mcL (140-400); Red Blood Count 5.23 M/mcL (4.19-5.50); Red Cell Distribution Width 15.4 % (11.5-14.5); Segmented Neutrophils % 71.2 %; White Blood Count 14.6 K/mcL (4.3-11.1)
[2018-12-16 21:12] LABS: Bacteria,Urine None Seen per hpf (None-Few); Hyaline Casts,Urine None Seen per lpf (None-Few); RBC,Urine 0-3 per hpf (0-3); Squamous Epithelial Cell,Urine Moderate per lpf (None-Few)
[2018-12-16 21:21] LABS: Amphetamine Screen,Urine Negative ng/mL (Cutoff=1000); Barbiturate Screen,Urine Negative ng/mL (Cutoff=200); Benzodiazepines Screen,Urine Negative ng/mL (Cutoff=200); Cannabinoid Screen,Urine Positive ng/mL (Cutoff = 50); Cocaine Screen,Urine Negative ng/mL (Cutoff= 300); Opiate Screen,Urine Negative ng/mL (Cutoff=300); Phencyclidine Screen,Urine Negative ng/mL (Cutoff=25)
[2018-12-16 21:30] LABS: Acetaminophen < 10 mcg/mL (10-20); BUN/Creatinine Ratio 12 (6-26); Blood Urea Nitrogen 14 mg/dL (6-20); Calcium 9.6 mg/dL (8.6-10.3); Carbon Dioxide 20 mEq/L (23-29); Chloride 107 mEq/L (98-107); Ethanol < 10 mg/dL (Less than 10); Glucose 186 mg/dL (70-105); Osmolality,Calculated 293 (280-300); Potassium 3.4 mEq/L (3.5-5.1); Salicylate < 2.5 mg/dL (15.0-30.0); Sodium 139 mEq/L (136-145); Valproate 42 mcg/mL (50-100); eGFR For African Americans > 60 (> 60); eGFR For Non-African Americans > 60 (> 60)
[2018-12-16] MEDS ORDERED: Haloperidol Lactate 5 MG/ML VIAL IM PRN (22:47)
[2018-12-16] MEDS ORDERED: traZODone 50 MG TABLET PO PRN (22:47)
[2018-12-16] MEDS ORDERED: Mag Hydrox/Al Hydrox/Simeth 30 ML UDC PO PRN (22:47)
[2018-12-16] MEDS ORDERED: hydrOXYzine pamoate 25 MG CAPSULE PO PRN (22:47)
[2018-12-16] MEDS ORDERED: *HR* LORazepam 1 MG TABLET PO PRN (22:47)
[2018-12-16] MEDS ORDERED: *HR* LORazepam 2 MG/ML VIAL IM PRN (22:47)
[2018-12-16] MEDS ORDERED: MOM Conc 10 ML UD.LIQ PO PRN (22:47)
[2018-12-16] MEDS ORDERED: Ibuprofen 400 MG TABLET PO PRN (22:47)
[2018-12-17] MEDS ORDERED: Nicotine 2 MG GUM BC PRN (00:30)
[2018-12-17] MEDS ORDERED: Divalproex (24 HR) 250 MG TABLET PO SCH ×2 (09:30→21:00)
[2018-12-17] MEDS ORDERED: LOXAPINE SUCCINATE 10 MG PO SCH (09:30)
[2018-12-17] MEDS ORDERED: Divalproex (24 HR) 500 MG TABLET PO SCH ×2 (09:30→21:00)
[2018-12-17] MEDS ORDERED: traZODone 50 MG TABLET PO SCH (09:30)
[2018-12-17] MEDS ORDERED: Insulin DETEMIR 100 UNIT/ML X5UNITS SQ SCH ×2 (09:30→21:00)
--- NOTE | 2018-12-17 10:47 | Psychiatry History & Physical ---
Date of Encounter: 12/17/18 Time of Encounter: 09:00 History of Present Illness Patient Stated Chief Complaint: "World better place without me" Medicare Admission Attestation: For traditional Medicare patients the provided hospital inpatient services are reasonable and necessary and in the case of services not specified as inpatient-only under 42 CFR 419.22 (n), that they are appropriately provided as inpatient services in accordance 42 CFR 412.3. For Critical Access Hospital the patient may reasonably be expected to be discharged or transferred to a hospital within 96 hours after admission to the Critical Access Hospital. Admitted From: Home Plans for Post Hospital Care: Home History of Present Illness: Mr. Menon is a 48 year old male who was brought in by his mother. He expressed thoughts of suicide with plan and intent to overdose on Flexeril. On Sunday of this past week his mother and stepfather split-up. He has been distressed by the breakup and worried about where he will live. He has previous suicide attempts by overdose and cutting his wrists. He reports having a mental health provider at [facility]. He was seen 2 weeks ago by his mental health provider. He reports worsening anxiety and anhedonia since Sunday. Denies any recent manic episodes. Client also endorses feeling "he is the devil and can control the weather". Past Med Surg Social Fam HX - Past Medical History Source: patient, old records reviewed Medical history: COPD, diabetes, hepatitis, other (herniated disc) - Past Psychiatric History Psychiatric history: Reports: previous psychiatric hospitalization, other (schizoaffective, bipolar type.) Past psychiatric history details: Information obtained from the client. He has been hospitalized multiple times in the past for suicide attempts. He reports 5 separate attempts including: cutting and overdose. He has a history of Schizoaffective, bipolar type. A home health nurse assists with his medications. He admits to forgetting to take his medications at night sometimes. Heath Salazar is his mental health provider at [facility]. He reports seeing him a few weeks ago and being taken off [employer] and continuing Depakote 1250 mg QHS. Family psychiatric history: Yes Family Psychiatric History Details: He reports mother tried to end her life by overdose on 1 occasion. Family History of Suicide: Attempted (Mother) Family Suicide History Details: Client didn't know details of suicide attempt. - Past Surgical History Surgical History: non-contributory, cholecystectomy, other - Social History Smoking Status: Current every day smoker Packs per day: 1 Smokeless Tobacco Status: No Alcohol use: none Drug use: marijuana (reports "1 joint a day".) Occupational status: disabled (History of herniated disc) Current living situation: With Family (Lives with mother and stepfather. ) Activity Level: Independent ambulation Recent Out of Country Travel Within the Last 8 Weeks: No Exposure or Possible Exposure to Illness During Travel: No - Family History Mother Adopted: No Family Member Ethnicity: Non- Living Status: Still Living Hx Family Cardiac Disorders: No Hx Family Respiratory Disorders: No Hx Family Cancer: Yes Hx Family GI Disorders: No Hx Family Endocrine Disorder: No Hx Family Neuromuscular Disorders: No Hx Family Neurologic Disorders: No Hx Family HEENT Disorders: No Hx Family Autoimmune Disorders: No Father Adopted: No Family Member Ethnicity: Non- Living Status: Still Living Hx Family Cardiac Disorders: No Hx Family Respiratory Disorders: Yes Hx Family Cancer: No Hx Family GI Disorders: No Hx Family Endocrine Disorder: No Hx Family Neuromuscular Disorders: No Hx Family Neurologic Disorders: No Hx Family HEENT Disorders: No Hx Family Autoimmune Disorders: No Medications & Allergies Albuterol Sulfate [Proventil Inhaler] 2 puff IH Q4H PRN 02/01/17 [Rx] Divalproex (24 HR) [Depakote ER (24 HR)] 250 mg PO BID 03/21/18 [History] Divalproex (24 HR) [Depakote ER (24 HR)] 500 mg PO BID 03/21/18 [History] Loxapine Succinate [Loxapine] 10 mg PO HS 03/21/18 [History] Benztropine Mesylate 0.5 mg PO HS 12/17/18 [History] Budesonide/Formoterol 160/4.5 [Symbicort 160/4.5] 2 puff PO BID 12/17/18 [History] Cyclobenzaprine HCl [Fexmid] 7.5 mg PO TID PRN 12/17/18 [History] Insulin ASPART [Novolog Flexpen] 0 unit SQ TIDWM 12/17/18 [History] Insulin Degludec/Liraglutide [Xultophy 100 Unit-3.6MG/ml Pen] 0 - 50 unit SQ DAILY 12/17/18 [History] Prazosin HCl [Minipress] 10 mg PO HS 12/17/18 [History] Pregabalin [Lyrica] 150 mg PO BID 12/17/18 [History] Ziprasidone [Geodon] 80 mg PO HS 12/17/18 [History] Allergy/AdvReac Type Severity Reaction Status Date / Time No Known Allergies Allergy Verified 12/17/18 11:34 Review of Systems Constitutional: Reports: night sweats. Denies: fever, chills Eyes: Denies: vision change Ears, Nose, Throat: Denies: throat pain, hearing loss, congestion Cardiovascular: Denies: chest pain, dyspnea on exertion Respiratory: Denies: wheezes Gastrointestinal: Denies: abdominal pain, nausea, vomiting Genitourinary male: Denies: urgency, dysuria, frequency Musculoskeletal: Denies: back pain, joint pain Integumentary: Denies: rash, pruritus Neurological: Reports: paresthesias (history of diabetic neuropathy). Denies: h eadache, weakness Psychiatric: Reports: depression, anxiety, suicidal ideation. Denies: homicidal ideation, auditory hallucinations, visual hallucinations, mood swings Endocrine: Denies: fatigue, polydipsia, polyuria Exam - HEENT Eye exam IM: Present: normal appearance ENT exam IM: Present: normal external ear exam - Neurological Neurological exam: Present: CN II-XII intact, alert. Absent: facial droop, speech deficit - Respiratory Respiratory exam IM: Absent: accessory muscle use, prolonged expiratory phase, respiratory distress, tachypnea - Extremities Extremities exam IM: Present: full ROM - Skin Skin exam IM: Present: normal color. Absent: cyanosis - Constitutional Vitals: Temp Pulse Resp BP Pulse Ox 97.9 F 75 17 132/96 100 12/17/18 09:00 12/17/18 09:00 12/17/18 09:00 12/17/18 09:00 12/17/18 09:00 General appearance: age & developmentally appropriate, unkempt, obese - Musculoskeletal Gait: normal Station: relaxed Strength & Tone: normal for patient - Psychiatric Patient Orientation: Yes Person, Yes Time, Yes Place, Yes Circumstance Level of alertness: Alert Behavior: calm, cooperative Psychomotor activity: Normal Eye Contact: Maintains Eye Contact Mood Description: Depressed Affect description: congruent with mood Speech Volume: Normal Speech pattern: normal rate, normal rhythm, normal tone Language & Vocabulary: consistent with education Thought Process: Intact, Logical Thought Content: Yes Intact, No Suicidal ideation, Yes Overt delusions (Mixed type, he states "I am the devil" and "I can control the weather". ) Perceptual Disturbances: No Auditory hallucinations, No Visual hallucinations, No Tactile hallucinations Attention Span Ability: Capable of Focused Attention Memory Description: Grossly Intact Patient Reliability: Reliable Historian Fund of knowledge: Yes abstraction ability Intelligence Estimate: Average Judgment: Good Insight: Full Results - Drug Levels and Toxicology Drug Levels and Toxicology: Drug Levels and Toxicity 12/16/18 12/16/18 12/16/18 20:51 20:54 20:54 Urine Opiates Screen Negative Acetaminophen < 10 L Ur Barbiturates Screen Negative Ur Phencyclidine Scrn Negative Ur Amphetamines Screen Negative U Benzodiazepines Scrn Negative [employer] 0.0 L Urine Cocaine Screen Negative U Marijuana (THC) Screen Positive H Ethyl Alcohol < 10 - Labs Labs: Laboratory Last Values WBC 14.6 K/mcL (4.3-11.1) H 12/16/18 20:54 RBC 5.23 M/mcL (4.19-5.50) 12/16/18 20:54 Hgb 15.3 g/dL (12.9-16.9) 12/16/18 20:54 Hct 45.8 % (37.5-50.1) 12/16/18 20:54 MCV 87.6 fL (83.0-100.0) 12/16/18 20:54 MCH 29.3 pg (28.0-33.3) 12/16/18 20:54 MCHC 33.4 g/dL (31.6-35.5) 12/16/18 20:54 RDW 15.4 % (11.5-14.5) H 12/16/18 20:54 Plt Count 277 K/mcL (140-400) 12/16/18 20:54 MPV 10.4 fL (9.4-12.4) 12/16/18 20:54 Immature Gran % 0.5 % (0-4) 12/16/18 20:54 Seg Neutrophils % 71.2 % 12/16/18 20:54 Lymphocytes % 21.9 % 12/16/18 20:54 Monocytes % 5.6 % 12/16/18 20:54 Eosinophils % 0.5 % 12/16/18 20:54 Basophils % 0.3 % 12/16/18 20:54 Neutrophils # 10.4 K/mcL (1.6-8.9) H 12/16/18 20:54 Lymphocytes # 3.2 K/mcL (0.6-4.6) 12/16/18 20:54 Monocytes # 0.8 K/mcL (0.0-1.3) 12/16/18 20:54 Eosinophils # 0.1 K/mcL (0.0-0.6) 12/16/18 20:54 Basophils # 0.0 K/mcL (0.0-0.2) 12/16/18 20:54 Sodium 139 mEq/L (136-145) 12/16/18 20:54 Potassium 3.4 mEq/L (3.5-5.1) L 12/16/18 20:54 Chloride 107 mEq/L (98-107) 12/16/18 20:54 Carbon Dioxide 20 mEq/L (23-29) L 12/16/18 20:54 BUN 14 mg/dL (6-20) 12/16/18 20:54 Creatinine 1.21 mg/dL (0.70-1.30) 12/16/18 20:54 Est GFR ( Amer) > 60 (> 60) 12/16/18 20:54 Est GFR (Non-Af Amer) > 60 (> 60) 12/16/18 20:54 BUN/Creatinine Ratio 12 (6-26) 12/16/18 20:54 Glucose 186 mg/dL (70-105) H 12/16/18 20:54 POC Glucose 107 mg/dL (70-99) H 12/17/18 08:16 Calculated Osmolality 293 (280-300) 12/16/18 20:54 Calcium 9.6 mg/dL (8.6-10.3) 12/16/18 20:54 Urine Color Yellow (Yellow) 12/16/18 20:51 Urine Clarity Clear (Clear) 12/16/18 20:51 Urine pH 7.0 pH Units (5.0-8.0) 12/16/18 20:51 Ur Specific Morton 1.021 (1.010-1.025) 12/16/18 20:51 Urine Protein Negative mg/dL (Neg-Trace) 12/16/18 20:51 Urine Glucose (UA) Normal mg/dL (Normal) 12/16/18 20:51 Urine Ketones 15 mg/dL (Negative) H 12/16/18 20:51 Urine Blood Negative (Negative) 12/16/18 20:51 Urine Nitrite Negative (Negative) 12/16/18 20:51 Urine Bilirubin Small (Negative) H 12/16/18 20:51 Urine Urobilinogen Normal mg/dL (Normal) 12/16/18 20:51 Ur Leukocyte Esterase Small (Negative) H 12/16/18 20:51 Urine Microscopic RBC 0-3 per hpf (0-3) 12/16/18 20:51 Urine Microscopic WBC 3-5 per hpf (0-3) H 12/16/18 20:51 Ur Squamous Epith Cells Moderate per lpf (None-Few) H 12/16/18 20:51 Urine Bacteria None Seen per hpf (None-Few) 12/16/18 20:51 Hyaline Casts None Seen per lpf (None-Few) 12/16/18 20:51 Salicylates < 2.5 mg/dL (15.0-30.0) L 12/16/18 20:54 Urine Opiates Screen Negative ng/mL (Syroif=708) 12/16/18 20:51 Ur Buprenorphine Scrn Negative ng/mL (Cutoff=5) 12/16/18 20:51 Acetaminophen < 10 mcg/mL (10-20) L 12/16/18 20:54 Ur Barbiturates Screen Negative ng/mL (Ejeptc=442) 12/16/18 20:51 Valproic Acid 42 mcg/mL (50-100) L 12/16/18 20:54 Ur Phencyclidine Scrn Negative ng/mL (Cutoff=25) 12/16/18 20:51 Ur Amphetamines Screen Negative ng/mL (Thyaxg=8713) 12/16/18 20:51 U Benzodiazepines Scrn Negative ng/mL (Lctjdq=198) 12/16/18 20:51 [employer] 0.0 mEq/L (0.6-1.2) L 12/16/18 20:54 Urine Cocaine Screen Negative ng/mL (Cutoff= 300) 12/16/18 20:51 U Marijuana (THC) Screen Positive ng/mL (Cutoff = 50) H 12/16/18 20:51 Ur Drug Screen Interp See Below 12/16/18 20:51 Ethyl Alcohol < 10 mg/dL (Less than 10) 12/16/18 20:54 Assessment and Plan (1) Schizoaffective disorder, depressive type Current visit: Yes Status: Acute Plan: Admit inpatient for safety and stabilization, Close observation, Suicide Precautions per unit protocol, Encourage participation in unit milieu, Group Therapy Additional Plan: Will continue Depakote 1000 mg and 250 mg PO at night for mood stability. Prazosin 3 mg PO at night for nightmares. Ziprasidone 80 mg PO BID for mood stability. Pregabalin 150 mg PO BID and Cyclobenzaprine 10 mg PO BID for chronic back pain associated with herniated disc. Trazadone 50 mg PO at night for insomnia. Adding Perphenazine 8 mg PO BID for mood stability. Will order lipid panel, Heme A1C and Valproic acid to assess baseline. Risks, benefits, side effects, alternatives discussed w/pt: Yes Patient agreeable to treatment: Yes Plans for Post Hospital Care: Home Estimated Length of Stay (Days): 3 - Attending Attestation I examined this patient and my medical decision-making was reviewed with the Resident Physician. I agree with the documented findings, disposition and treatment plan as described except to the extent set forth below. Agree with mental status Agree with Plan
[2018-12-17] MEDS: Perphenazine 8 MG TABLET PO SCH ×2 (11:30→20:36)
[2018-12-17] MEDS: Pregabalin 75 MG CAPSULE PO SCH ×2 (11:30→20:36)
[2018-12-17] MEDS: Insulin LISPRO 300 UNITS/3 ML VIAL SQ SCH ×2 (13:33→17:15)
[2018-12-17 14:45] LABS: Estimated Average Glucose 160 mg/dl
[2018-12-17 14:52] LABS: Chol/HDL Ratio 5.7 (0-4.9)
[2018-12-17] MEDS: traZODone 50 MG TABLET PO SCH (20:36)
[2018-12-17] MEDS: Divalproex (24 HR) 500 MG TABLET PO SCH (21:00)
[2018-12-17] MEDS: Divalproex (24 HR) 250 MG TABLET PO SCH (21:00)
[2018-12-17] MEDS: Insulin DETEMIR 100 UNIT/ML X5UNITS SQ SCH (21:00)
[2018-12-18] MEDS: Insulin LISPRO 300 UNITS/3 ML VIAL SQ SCH ×3 (08:34→16:28)
[2018-12-18] MEDS: Divalproex (24 HR) 250 MG TABLET PO SCH ×2 (08:35→20:58)
[2018-12-18] MEDS: Divalproex (24 HR) 500 MG TABLET PO SCH ×2 (08:35→20:58)
[2018-12-18] MEDS: Pregabalin 75 MG CAPSULE PO SCH ×2 (08:35→20:59)
[2018-12-18] MEDS: Perphenazine 8 MG TABLET PO SCH ×2 (08:35→20:59)
[2018-12-18] MEDS: Nicotine 21 MG PATCH.TD24 TD SCH (09:12)
--- NOTE | 2018-12-18 11:50 | Psychiatry Progress Note ---
Date of Encounter: 12/18/18 Time of Encounter: 10:20 Subjective Interval history: Client seen at bedside. "happy" mood. Doesn't endorse thinking he is "the devil", but still endorsing he can "control the weather". Denies SI and HI ideation/plan/intent. Is medication compliant. Doesn't report any side effects from medications. Spoke about living situation after discharge and relationship with his mother. Review of Systems Constitutional: Denies: fever, chills, weight change, night sweats Ears, Nose, Throat: Denies: throat pain Cardiovascular: Denies: chest pain, palpitations, dyspnea on exertion, syncope Respiratory: Denies: cough, dyspnea Gastrointestinal: Denies: abdominal pain, nausea, vomiting, diarrhea, constipation Genitourinary male: Denies: urgency Musculoskeletal: Denies: joint pain, myalgia Integumentary: Denies: rash, pruritus Neurological: Reports: paresthesias. Denies: headache, weakness, memory loss, abnormal gait Psychiatric: Reports: depression, anxiety. Denies: suicidal ideation, homicidal ideation, auditory hallucinations, visual hallucinations, mood swings Results - Vital Signs Vital Signs: Temp Pulse Resp BP Pulse Ox 97.2 F L 92 18 114/83 99 12/18/18 08:57 12/18/18 08:57 12/18/18 08:57 12/18/18 08:57 12/18/18 08:57 - Labs Labs: Laboratory Results - last 24 hr 12/17/18 12/17/18 12/17/18 13:53 13:53 17:13 POC Glucose 111 H Est Mean Plasma Glucose 160 Hemoglobin A1c 7.2 H Triglycerides 199 H Cholesterol 177 LDL Cholesterol, Calc 106 H VLDL Cholesterol, Calc 40 H HDL Cholesterol 31 L Cholesterol/HDL Ratio 5.7 H 12/17/18 12/18/18 12/18/18 20:40 08:22 11:45 POC Glucose 82 123 H 92 Est Mean Plasma Glucose Hemoglobin A1c Triglycerides Cholesterol LDL Cholesterol, Calc VLDL Cholesterol, Calc HDL Cholesterol Cholesterol/HDL Ratio Assessment and Plan (1) Schizoaffective disorder, depressive type Current visit: Yes Status: Acute Plan: Continue hospitalization, Suicide Precautions per unit protocol, Encourage participation in unit milieu, Group Therapy, Monitor sleep Risks, benefits, side effects, alternatives discussed w/pt: Yes Patient agreeable to treatment: Yes Consult Discharge Plan - Plan Referrals: [place] [facility] [place] Christina Jennings CRTTS [Advanced Practice Nurse] - 01/13/19 1:30 pm (You have an appointment scheduled with this provider on Sunday, January 13, 2019 at 1:30 PM. Please keep all of your healthcare providers informed of any changes in your medications, treatments or medical conditions. Please contact the office at the number above at least 24 hours in advance if you are unable to keep this appointment. ) - Attending Attestation I examined this patient and my medical decision-making was reviewed with the Resident Physician. I agree with the documented findings, disposition and treatment plan as described except to the extent set forth below. Agree with mental status Agree with Plan Psychiatry Exam - Constitutional Vitals: Temp Pulse Resp BP Pulse Ox 97.2 F L 92 18 114/83 99 12/18/18 08:57 12/18/18 08:57 12/18/18 08:57 12/18/18 08:57 12/18/18 08:57 General appearance: age & developmentally appropriate, unkempt, malodorous - Musculoskeletal Gait: normal Station: relaxed Strength & Tone: normal for patient - Psychiatric Patient Orientation: Yes Person, Yes Time, Yes Place, Yes Circumstance Level of alertness: Alert Behavior: calm, cooperative, anxious Psychomotor activity: Normal Mood Description: Euthymic/stable Affect description: congruent with mood Speech Volume: Normal Speech pattern: normal rate, normal rhythm, fluent, appropriate, clear Language & Vocabulary: consistent with education Thought Process: Intact Thought Content: Yes Intact, Yes Grandiose delusion Perceptual Disturbances: No Reacting to internal stimuli, No Auditory hallucinations, No Visual hallucinations Attention Span Ability: Capable of Focused Attention Memory Description: Grossly Intact Patient Reliability: Reliable Historian Fund of knowledge: Yes abstraction ability Intelligence Estimate: Average Judgment: Fair Insight: Partial
[2018-12-18] MEDS: traZODone 50 MG TABLET PO SCH (20:59)
[2018-12-18] MEDS: Insulin DETEMIR 100 UNIT/ML X5UNITS SQ SCH (21:00)
--- NOTE | 2018-12-19 08:16 | Discharge Summary ---
Date of Encounter: 12/19/18 Time of Encounter: 07:30 Diagnosis - Discharge Diagnosis (1) Schizoaffective disorder, depressive type Status: Acute Medications - Discharge Medications Albuterol Sulfate [Proventil Inhaler] 2 puff IH Q4H PRN 02/01/17 [Rx] Divalproex (24 HR) [Depakote ER (24 HR)] 250 mg PO BID 03/21/18 [History] Divalproex (24 HR) [Depakote ER (24 HR)] 500 mg PO BID 03/21/18 [History] Loxapine Succinate [Loxapine] 10 mg PO HS 03/21/18 [History] Benztropine Mesylate 0.5 mg PO HS 12/17/18 [History] Budesonide/Formoterol 160/4.5 [Symbicort 160/4.5] 2 puff PO BID 12/17/18 [ History] Cyclobenzaprine HCl [Fexmid] 7.5 mg PO TID PRN 12/17/18 [History] Insulin ASPART [Novolog Flexpen] 0 unit SQ TIDWM 12/17/18 [History] Insulin Degludec/Liraglutide [Xultophy 100 Unit-3.6MG/ml Pen] 0 - 50 unit SQ DAILY 12/17/18 [History] Prazosin HCl [Minipress] 10 mg PO HS 12/17/18 [History] Pregabalin [Lyrica] 150 mg PO BID 12/17/18 [History] Ziprasidone [Geodon] 80 mg PO HS 12/17/18 [History] Cyclobenzaprine [Flexeril] 10 mg PO TID tablet 12/19/18 [Rx] Insulin LISPRO [HumaLOG] 10 units SQ TIDWM vial 12/19/18 [Rx] Prazosin [Minipress] 3 mg PO HS capsule 12/19/18 [Rx] Pregabalin [Lyrica] 150 mg PO BID capsule 12/19/18 [Rx] Tamsulosin [Flomax] 0.4 mg PO DAILY capsule 12/19/18 [Rx] traZODone [TraZODone] 50 mg PO HS tablet 12/19/18 [Rx] Allergy/AdvReac Type Severity Reaction Status Date / Time No Known Allergies Allergy Verified 12/17/18 11:34 Results Procedures and tests throughout hospitalization: Completed Lab Orders Category Date Time Status Acetaminophen Stat Lab 12/16/18 20:54 Completed Basic Metabolic Panel Stat Lab 12/16/18 20:54 Completed Complete Blood Count [HEME] Stat Lab 12/16/18 20:54 Completed Drug Screen, Urine [UCHEM] Stat Lab 12/16/18 20:51 Completed Ethanol Stat Lab 12/16/18 20:54 Completed Hgb A1C Routine Lab 12/17/18 13:53 Completed Lipid Panel Routine Lab 12/17/18 13:53 Completed Biola Stat Lab 12/16/18 20:54 Completed Salicylate Stat Lab 12/16/18 20:54 Completed Urinalysis reflex Microscopic [URIN] Stat Lab 12/16/18 20:51 Completed Valproate Stat Lab 12/16/18 20:54 Completed Lab Results 12/16/18 12/16/18 12/16/18 Range/Units 20:51 20:51 20:54 WBC 14.6 H (4.3-11.1) K/mcL RBC 5.23 (4.19-5.50) M/mcL Hgb 15.3 (12.9-16.9) g/dL Hct 45.8 (37.5-50.1) % MCV 87.6 (83.0-100.0) fL MCH 29.3 (28.0-33.3) pg MCHC 33.4 (31.6-35.5) g/dL RDW 15.4 H (11.5-14.5) % Plt Count 277 (140-400) K/mcL MPV 10.4 (9.4-12.4) fL Immature Gran % 0.5 (0-4) % Seg Neutrophils % 71.2 % Lymphocytes % 21.9 % Monocytes % 5.6 % Eosinophils % 0.5 % Basophils % 0.3 % Neutrophils # 10.4 H (1.6-8.9) K/mcL Lymphocytes # 3.2 (0.6-4.6) K/mcL Monocytes # 0.8 (0.0-1.3) K/mcL Eosinophils # 0.1 (0.0-0.6) K/mcL Basophils # 0.0 (0.0-0.2) K/mcL Sodium (136-145) mEq/L Potassium (3.5-5.1) mEq/L Chloride (98-107) mEq/L Carbon Dioxide (23-29) mEq/L BUN (6-20) mg/dL Creatinine (0.70-1.30) mg/dL Est GFR ( Amer) (> 60) Est GFR (Non-Af Amer) (> 60) BUN/Creatinine Ratio (6-26) Glucose (70-105) mg/dL POC Glucose (70-99) mg/dL Est Mean Plasma Glucose mg/dl Hemoglobin A1c ( - 5.6) % Calculated Osmolality (280-300) Calcium (8.6-10.3) mg/dL Triglycerides (< 150) mg/dL Cholesterol (< 200) mg/dL LDL Cholesterol, Calc (0-99) mg/dL VLDL Cholesterol, Calc (< 31) mg/dL HDL Cholesterol (40-59) mg/dL Cholesterol/HDL Ratio (0-4.9) Urine Color Yellow (Yellow) Urine Clarity Clear (Clear) Urine pH 7.0 (5.0-8.0) pH Units Ur Specific Gilbert 1.021 (1.010-1.025) Urine Protein Negative (Neg-Trace) mg/dL Urine Glucose (UA) Normal (Normal) mg/dL Urine Ketones 15 H (Negative) mg/dL Urine Blood Negative (Negative) Urine Nitrite Negative (Negative) Urine Bilirubin Small H (Negative) Urine Urobilinogen Normal (Normal) mg/dL Ur Leukocyte Esterase Small H (Negative) Urine Microscopic RBC 0-3 (0-3) per hpf Urine Microscopic WBC 3-5 H (0-3) per hpf Ur Squamous Epith Cells Moderate H (None-Few) per lpf Urine Bacteria None Seen (None-Few) per hpf Hyaline Casts None Seen (None-Few) per lpf Salicylates (15.0-30.0) mg/dL Urine Opiates Screen Negative (Ninbfl=978) ng/mL Ur Buprenorphine Scrn Negative (Cutoff=5) ng/mL Acetaminophen (10-20) mcg/mL Ur Barbiturates Screen Negative (Fzicgd=290) ng/mL Valproic Acid (50-100) mcg/mL Ur Phencyclidine Scrn Negative (Cutoff=25) ng/mL Ur Amphetamines Screen Negative (Xyszbd=4253) ng/mL U Benzodiazepines Scrn Negative (Flqidm=074) ng/mL [place] (0.6-1.2) mEq/L Urine Cocaine Screen Negative (Cutoff= 300) ng/mL U Marijuana (THC) Screen Positive H (Cutoff = 50) ng/mL Ur Drug Screen Interp See Below Ethyl Alcohol (Less than 10) mg/dL 12/16/18 12/16/18 12/17/18 Range/Units 20:54 20:54 08:16 WBC (4.3-11.1) K/mcL RBC (4.19-5.50) M/mcL Hgb (12.9-16.9) g/dL Hct (37.5-50.1) % MCV (83.0-100.0) fL MCH (28.0-33.3) pg MCHC (31.6-35.5) g/dL RDW (11.5-14.5) % Plt Count (140-400) K/mcL MPV (9.4-12.4) fL Immature Gran % (0-4) % Seg Neutrophils % % Lymphocytes % % Monocytes % % Eosinophils % % Basophils % % Neutrophils # (1.6-8.9) K/mcL Lymphocytes # (0.6-4.6) K/mcL Monocytes # (0.0-1.3) K/mcL Eosinophils # (0.0-0.6) K/mcL Basophils # (0.0-0.2) K/mcL Sodium 139 (136-145) mEq/L Potassium 3.4 L (3.5-5.1) mEq/L Chloride 107 (98-107) mEq/L Carbon Dioxide 20 L (23-29) mEq/L BUN 14 (6-20) mg/dL Creatinine 1.21 (0.70-1.30) mg/dL Est GFR ( Amer) > 60 (> 60) Est GFR (Non-Af Amer) > 60 (> 60) BUN/Creatinine Ratio 12 (6-26) Glucose 186 H (70-105) mg/dL POC Glucose 107 H (70-99) mg/dL Est Mean Plasma Glucose mg/dl Hemoglobin A1c ( - 5.6) % Calculated Osmolality 293 (280-300) Calcium 9.6 (8.6-10.3) mg/dL Triglycerides (< 150) mg/dL Cholesterol (< 200) mg/dL LDL Cholesterol, Calc (0-99) mg/dL VLDL Cholesterol, Calc (< 31) mg/dL HDL Cholesterol (40-59) mg/dL Cholesterol/HDL Ratio (0-4.9) Urine Color (Yellow) Urine Clarity (Clear) Urine pH (5.0-8.0) pH Units Ur Specific Gilbert (1.010-1.025) Urine Protein (Neg-Trace) mg/dL Urine Glucose (UA) (Normal) mg/dL Urine Ketones (Negative) mg/dL Urine Blood (Negative) Urine Nitrite (Negative) Urine Bilirubin (Negative) Urine Urobilinogen (Normal) mg/dL Ur Leukocyte Esterase (Negative) Urine Microscopic RBC (0-3) per hpf Urine Microscopic WBC (0-3) per hpf Ur Squamous Epith Cells (None-Few) per lpf Urine Bacteria (None-Few) per hpf Hyaline Casts (None-Few) per lpf Salicylates < 2.5 L (15.0-30.0) mg/dL Urine Opiates Screen (Pyyfun=486) ng/mL Ur Buprenorphine Scrn (Cutoff=5) ng/mL Acetaminophen < 10 L (10-20) mcg/mL Ur Barbiturates Screen (Rjlrrt=718) ng/mL Valproic Acid 42 L (50-100) mcg/mL Ur Phencyclidine Scrn (Cutoff=25) ng/mL Ur Amphetamines Screen (Kfhphb=0652) ng/mL U Benzodiazepines Scrn (Zvojlv=138) ng/mL [place] 0.0 L (0.6-1.2) mEq/L Urine Cocaine Screen (Cutoff= 300) ng/mL U Marijuana (THC) Screen (Cutoff = 50) ng/mL Ur Drug Screen Interp Ethyl Alcohol < 10 (Less than 10) mg/dL 12/17/18 12/17/18 12/17/18 Range/Units 13:53 13:53 17:13 WBC (4.3-11.1) K/mcL RBC (4.19-5.50) M/mcL Hgb (12.9-16.9) g/dL Hct (37.5-50.1) % MCV (83.0-100.0) fL MCH (28.0-33.3) pg MCHC (31.6-35.5) g/dL RDW (11.5-14.5) % Plt Count (140-400) K/mcL MPV (9.4-12.4) fL Immature Gran % (0-4) % Seg Neutrophils % % Lymphocytes % % Monocytes % % Eosinophils % % Basophils % % Neutrophils # (1.6-8.9) K/mcL Lymphocytes # (0.6-4.6) K/mcL Monocytes # (0.0-1.3) K/mcL Eosinophils # (0.0-0.6) K/mcL Basophils # (0.0-0.2) K/mcL Sodium (136-145) mEq/L Potassium (3.5-5.1) mEq/L Chloride (98-107) mEq/L Carbon Dioxide (23-29) mEq/L BUN (6-20) mg/dL Creatinine (0.70-1.30) mg/dL Est GFR ( Amer) (> 60) Est GFR (Non-Af Amer) (> 60) BUN/Creatinine Ratio (6-26) Glucose (70-105) mg/dL POC Glucose 111 H (70-99) mg/dL Est Mean Plasma Glucose 160 mg/dl Hemoglobin A1c 7.2 H ( - 5.6) % Calculated Osmolality (280-300) Calcium (8.6-10.3) mg/dL Triglycerides 199 H (< 150) mg/dL Cholesterol 177 (< 200) mg/dL LDL Cholesterol, Calc 106 H (0-99) mg/dL VLDL Cholesterol, Calc 40 H (< 31) mg/dL HDL Cholesterol 31 L (40-59) mg/dL Cholesterol/HDL Ratio 5.7 H (0-4.9) Urine Color (Yellow) Urine Clarity (Clear) Urine pH (5.0-8.0) pH Units Ur Specific Gilbert (1.010-1.025) Urine Protein (Neg-Trace) mg/dL Urine Glucose (UA) (Normal) mg/dL Urine Ketones (Negative) mg/dL Urine Blood (Negative) Urine Nitrite (Negative) Urine Bilirubin (Negative) Urine Urobilinogen (Normal) mg/dL Ur Leukocyte Esterase (Negative) Urine Microscopic RBC (0-3) per hpf Urine Microscopic WBC (0-3) per hpf Ur Squamous Epith Cells (None-Few) per lpf Urine Bacteria (None-Few) per hpf Hyaline Casts (None-Few) per lpf Salicylates (15.0-30.0) mg/dL Urine Opiates Screen (Towqnk=870) ng/mL Ur Buprenorphine Scrn (Cutoff=5) ng/mL Acetaminophen (10-20) mcg/mL Ur Barbiturates Screen (Eoowhe=512) ng/mL Valproic Acid (50-100) mcg/mL Ur Phencyclidine Scrn (Cutoff=25) ng/mL Ur Amphetamines Screen (Msyofr=1560) ng/mL U Benzodiazepines Scrn (Lwptgi=466) ng/mL Biola (0.6-1.2) mEq/L Urine Cocaine Screen (Cutoff= 300) ng/mL U Marijuana (THC) Screen (Cutoff = 50) ng/mL Ur Drug Screen Interp Ethyl Alcohol (Less than 10) mg/dL 12/17/18 12/18/18 12/18/18 Range/Units 20:40 08:22 11:45 WBC (4.3-11.1) K/mcL RBC (4.19-5.50) M/mcL Hgb (12.9-16.9) g/dL Hct (37.5-50.1) % MCV (83.0-100.0) fL MCH (28.0-33.3) pg MCHC (31.6-35.5) g/dL RDW (11.5-14.5) % Plt Count (140-400) K/mcL MPV (9.4-12.4) fL Immature Gran % (0-4) % Seg Neutrophils % % Lymphocytes % % Monocytes % % Eosinophils % % Basophils % % Neutrophils # (1.6-8.9) K/mcL Lymphocytes # (0.6-4.6) K/mcL Monocytes # (0.0-1.3) K/mcL Eosinophils # (0.0-0.6) K/mcL Basophils # (0.0-0.2) K/mcL Sodium (136-145) mEq/L Potassium (3.5-5.1) mEq/L Chloride (98-107) mEq/L Carbon Dioxide (23-29) mEq/L BUN (6-20) mg/dL Creatinine (0.70-1.30) mg/dL Est GFR ( Amer) (> 60) Est GFR (Non-Af Amer) (> 60) BUN/Creatinine Ratio (6-26) Glucose (70-105) mg/dL POC Glucose 82 123 H 92 (70-99) mg/dL Est Mean Plasma Glucose mg/dl Hemoglobin A1c ( - 5.6) % Calculated Osmolality (280-300) Calcium (8.6-10.3) mg/dL Triglycerides (< 150) mg/dL Cholesterol (< 200) mg/dL LDL Cholesterol, Calc (0-99) mg/dL VLDL Cholesterol, Calc (< 31) mg/dL HDL Cholesterol (40-59) mg/dL Cholesterol/HDL Ratio (0-4.9) Urine Color (Yellow) Urine Clarity (Clear) Urine pH (5.0-8.0) pH Units Ur Specific Gilbert (1.010-1.025) Urine Protein (Neg-Trace) mg/dL Urine Glucose (UA) (Normal) mg/dL Urine Ketones (Negative) mg/dL Urine Blood (Negative) Urine Nitrite (Negative) Urine Bilirubin (Negative) Urine Urobilinogen (Normal) mg/dL Ur Leukocyte Esterase (Negative) Urine Microscopic RBC (0-3) per hpf Urine Microscopic WBC (0-3) per hpf Ur Squamous Epith Cells (None-Few) per lpf Urine Bacteria (None-Few) per hpf Hyaline Casts (None-Few) per lpf Salicylates (15.0-30.0) mg/dL Urine Opiates Screen (Apzynx=738) ng/mL Ur Buprenorphine Scrn (Cutoff=5) ng/mL Acetaminophen (10-20) mcg/mL Ur Barbiturates Screen ([place]=824) ng/mL Valproic Acid (50-100) mcg/mL Ur Phencyclidine Scrn (Cutoff=25) ng/mL Ur Amphetamines Screen (Cuxxqg=7212) ng/mL U Benzodiazepines Scrn (Rzkfiu=548) ng/mL Biola (0.6-1.2) mEq/L Urine Cocaine Screen (Cutoff= 300) ng/mL U Marijuana (THC) Screen (Cutoff = 50) ng/mL Ur Drug Screen Interp Ethyl Alcohol (Less than 10) mg/dL 12/18/18 12/18/18 12/19/18 Range/Units 16:26 20:08 07:58 WBC (4.3-11.1) K/mcL RBC (4.19-5.50) M/mcL Hgb (12.9-16.9) g/dL Hct (37.5-50.1) % MCV (83.0-100.0) fL MCH (28.0-33.3) pg MCHC (31.6-35.5) g/dL RDW (11.5-14.5) % Plt Count (140-400) K/mcL MPV (9.4-12.4) fL Immature Gran % (0-4) % Seg Neutrophils % % Lymphocytes % % Monocytes % % Eosinophils % % Basophils % % Neutrophils # (1.6-8.9) K/mcL Lymphocytes # (0.6-4.6) K/mcL Monocytes # (0.0-1.3) K/mcL Eosinophils # (0.0-0.6) K/mcL Basophils # (0.0-0.2) K/mcL Sodium (136-145) mEq/L Potassium (3.5-5.1) mEq/L Chloride (98-107) mEq/L Carbon Dioxide (23-29) mEq/L BUN (6-20) mg/dL Creatinine (0.70-1.30) mg/dL Est GFR ( Amer) (> 60) Est GFR (Non-Af Amer) (> 60) BUN/Creatinine Ratio (6-26) Glucose (70-105) mg/dL POC Glucose 115 H 112 H 120 H (70-99) mg/dL Est Mean Plasma Glucose mg/dl Hemoglobin A1c ( - 5.6) % Calculated Osmolality (280-300) Calcium (8.6-10.3) mg/dL Triglycerides (< 150) mg/dL Cholesterol (< 200) mg/dL LDL Cholesterol, Calc (0-99) mg/dL VLDL Cholesterol, Calc (< 31) mg/dL HDL Cholesterol (40-59) mg/dL Cholesterol/HDL Ratio (0-4.9) Urine Color (Yellow) Urine Clarity (Clear) Urine pH (5.0-8.0) pH Units Ur Specific Gilbert (1.010-1.025) Urine Protein (Neg-Trace) mg/dL Urine Glucose (UA) (Normal) mg/dL Urine Ketones (Negative) mg/dL Urine Blood (Negative) Urine Nitrite (Negative) Urine Bilirubin (Negative) Urine Urobilinogen (Normal) mg/dL Ur Leukocyte Esterase (Negative) Urine Microscopic RBC (0-3) per hpf Urine Microscopic WBC (0-3) per hpf Ur Squamous Epith Cells (None-Few) per lpf Urine Bacteria (None-Few) per hpf Hyaline Casts (None-Few) per lpf Salicylates (15.0-30.0) mg/dL Urine Opiates Screen (Onaqav=583) ng/mL Ur Buprenorphine Scrn (Cutoff=5) ng/mL Acetaminophen (10-20) mcg/mL Ur Barbiturates Screen (Pputpy=552) ng/mL Valproic Acid (50-100) mcg/mL Ur Phencyclidine Scrn (Cutoff=25) ng/mL Ur Amphetamines Screen (Fahdep=9553) ng/mL U Benzodiazepines Scrn (Eumudo=749) ng/mL [place] (0.6-1.2) mEq/L Urine Cocaine Screen (Cutoff= 300) ng/mL U Marijuana (THC) Screen (Cutoff = 50) ng/mL Ur Drug Screen Interp Ethyl Alcohol (Less than 10) mg/dL Provider Date of admission: 12/16/18 22:45 Primary care physician: PCP NONE Consults: 12/16/18 23:44 Consult to Pastoral Services [CONS] Routine Comment: Discharging clinician: Marylou Grace Psychiatry Exam - Constitutional Vitals: Temp Pulse Resp BP Pulse Ox 97.9 F 97 16 117/84 98 12/18/18 20:52 12/18/18 20:52 12/18/18 20:52 12/18/18 20:52 12/18/18 20:52 General appearance: age & developmentally appropriate, well-groomed, well- nourished, disheveled - Musculoskeletal Gait: normal Station: relaxed Strength & Tone: normal for patient - Psychiatric Patient Orientation: Yes Person, Yes Time, Yes Place, Yes Circumstance Level of alertness: Alert Behavior: calm, cooperative Psychomotor activity: Normal Eye Contact: Maintains Eye Contact Mood Description: Euthymic/stable Patient description of mood: Good Affect description: congruent with mood, full range Speech Volume: Normal Speech pattern: normal rate, normal rhythm, normal tone, fluent, spontaneous Language & Vocabulary: consistent with education Thought Process: Linear, Goal Oriented Thought Content: No Suicidal ideation, No Homicidal ideation, No Overt delusions Perceptual Disturbances: No Auditory hallucinations, No Visual hallucinations Attention Span Ability: Capable of Focused Attention Memory Description: Grossly Intact Patient Reliability: Reliable Historian Fund of knowledge: Yes abstraction ability, Yes aware of current events Intelligence Estimate: Average Judgment: Good Insight: Full Hospital Course Hospital course: Mr. Baire is a 48 year old male who was admitted for suicidality and worsening psychosis in the context of finding out his parents were going to get and that his housing situation was tenuous. We got him stabilize back on his home meds.Patient was educated of diagnosis and the risk-benefit side effects of this alternative treatment options and was monitored for responsiveness and side effects. Mood anxiety sleep and appetite interest improved as did future orientation. Self-harm thoughts subsided, thinking cleared, psychosis resolved, and mood stabilized. Patient was able to attend both individual and group therapy sessions as well as meet with the psychiatrist daily and urged to discuss any medication or treatment issues or other concerns. The patient was educated primarily by verbal means about their diagnosis and manifestations in their life. The option for treatment including group and individual therapy programming was offered to the patient in addition to the use of medications with all their potential risks, benefits, and side effects as well as the risks of not taking medication and non-adhereance were discussed with the patient at length. The patient was given the opportunity to ask questions and was noted to participate in the treatment in the planning process. The patient felt ready and eager to be discharged from the inpatient psychiatric unit to continue on with treatment as an outpatient. The patient agreed that is they were safe for this disposition. The patient was considered to be able to participate in informed consent and decision making with respect to medical, legal, and financial issues of the time of discharge. At the time of discharge the patient adamantly denied any concerns for lethality including suicidal or homicidal thoughts ideations or plans and was future oriented toward ongoing mental health care, medical follow-up and sobriety. Time spent discussing smoking cessation with patient: 3 to 10 minutes Does patient wish to continue nicotine replacement upon disc: No - Time Spent with Patient Total time spent providing and/or coordinating discharge services: 25 Less than 30 minutes Specific discharge activities: Interval history reviewed. Available labs reviewed . Psychotherapy provided. Patient had an opportunity to ask questions and address concerns. Patient was in agreement with the treatment plan. The risks benefits and side effects of medications were discussed with the patient, including alternatives and treatment. The patient was educated on the abstaining from any alcohol or illicit substances, following up with all scheduled appointments, and taking all medications as prescribed. Assessment and Plan - Patient/Caregiver Discharge Instructions Activity: resume usual activities as tolerated Diet: regular diet Additional Instructions: Continue current medications. Follow up with outpatient mental health. Encourage continued therapy in a group or individual setting. The patient was discharged to home. - Follow up Plan Follow up with: Yvette Kaba [facility] [Outside] Christina Jennings [employer] [Advanced Practice Nurse] - 01/13/19 1:30 pm (You have an appointment scheduled with this provider on Sunday, January 13, 2019 at 1:30 PM. Please keep all of your healthcare providers informed of any changes in your medications, treatments or medical conditions. Please contact the office at the number above at least 24 hours in advance if you are unable to keep this appointment. ) Functional capacity at discharge: independent ambulation Overall status at discharge: Stable Disposition: Home, Self-Care Quality - Multiple Antipsychotics Patient discharged on 2 or more antipsychotic medications: No Procedures - Procedures Procedures: Medication Management, Crisis Stabilization, Supportive Therapy, Group Therapy, Psychoeducational Therapy
[2018-12-19] MEDS: Insulin LISPRO 300 UNITS/3 ML VIAL SQ SCH (08:40)
[2018-12-19] MEDS: Divalproex (24 HR) 250 MG TABLET PO SCH (08:40)
[2018-12-19] MEDS: Perphenazine 8 MG TABLET PO SCH (08:41)
[2018-12-19] MEDS: Divalproex (24 HR) 500 MG TABLET PO SCH (08:41)
[2018-12-19] MEDS: Nicotine 21 MG PATCH.TD24 TD SCH (08:41)
[2018-12-19] MEDS: Pregabalin 75 MG CAPSULE PO SCH (08:41)
[2018-12-19 08:58] VITALS: BP 130/87
== END 2018-12-19 10:43 | disposition home or self-care (01) | DRG 885 ==
LOC: 1ANU 20:23 → EMEROOARM 20:23 → OBSVTOIN 22:45 → 1ANU 22:55
PROVIDERS: ADMIT Psychiatry & Neurology Psychiatry; ATTEND Psychiatry & Neurology Psychiatry

== ENCOUNTER 2019-02-21 15:00 | Inpatient (IN) ==
--- NOTE | 2019-02-21 15:25 | Emergency Department Note ---
Disposition Clinical Impression: Suicidal ideation Disposition: Admitted As Inpatient Condition: Good Time of Disposition: 18:05 Psych HPI - General Chief Complaint: ED Psychiatric Symptoms Stated Complaint: SI Time Seen by Provider: 02/21/19 15:15 Source: patient, EMS Mode of arrival: private vehicle Limitations: no limitations Nursing Notes Reviewed: Yes Vital Signs Reviewed: Yes - History of Present Illness Pt complaint: suicidal ideation, feels depressed, anxiety Onset (ago): day(s) Duration: constant, getting worse History of similar episodes: Yes Improves with: none Worsens with: none Context: significant life stressor Alleged intoxication: No Associated Psychiatric Symptoms: depression, suicidal ideation, racing thoughts, anxiety Associated symptoms: Denies: confusion, headache, shortness of breath, nausea, vomiting, syncope, insomnia Traumatic symptoms: denies traumatic injury Treatments prior to arrival: none Self harm or harm to others: admits thoughts of self harm, has plan ("Take all my pills or slit my wrists") - Related Data Home Medications Medication Instructions Recorded Confirmed Divalproex (24 HR) [Depakote ER 250 mg PO BID 03/21/18 12/17/18 (24 HR)] Divalproex (24 HR) [Depakote ER 500 mg PO BID 03/21/18 12/17/18 (24 HR)] Loxapine Succinate [Loxapine] 10 mg PO HS 03/21/18 12/17/18 Benztropine Mesylate 0.5 mg PO HS 12/17/18 12/17/18 Budesonide/Formoterol 160/4.5 2 puff PO BID 12/17/18 12/17/18 [Symbicort 160/4.5] Cyclobenzaprine HCl [Fexmid] 7.5 mg PO TID PRN 12/17/18 12/17/18 Insulin ASPART [Novolog Flexpen] 0 unit SQ TIDWM 12/17/18 12/17/18 Insulin Degludec/Liraglutide 0 - 50 unit SQ DAILY 12/17/18 12/17/18 [Xultophy 100 Unit-3.6MG/ml Pen] Prazosin HCl [Minipress] 10 mg PO HS 12/17/18 12/17/18 Pregabalin [Lyrica] 150 mg PO BID 12/17/18 12/17/18 Ziprasidone [Geodon] 80 mg PO HS 12/17/18 12/17/18 Previous Rx's Medication Instructions Recorded Albuterol Sulfate [Proventil 2 puff IH Q4H PRN 02/01/17 Inhaler] Cyclobenzaprine [Flexeril] 10 mg PO TID tablet 12/19/18 Insulin LISPRO [HumaLOG] 10 units SQ TIDWM vial 12/19/18 Prazosin [Minipress] 3 mg PO HS capsule 12/19/18 Pregabalin [Lyrica] 150 mg PO BID capsule 12/19/18 Tamsulosin [Flomax] 0.4 mg PO DAILY capsule 12/19/18 traZODone [TraZODone] 50 mg PO HS tablet 12/19/18 Cyclobenzaprine [Flexeril] 10 mg PO TID #15 tablet 02/15/19 Lidocaine Patch [Lidoderm 5% patch] 1 each TP DAILY #14 adh..patch 02/15/19 predniSONE [Prednisone] 50 mg PO DAILY 5 Days #5 tablet 02/15/19 Allergies Allergy/AdvReac Type Severity Reaction Status Date / Time No Known Allergies Allergy Verified 02/15/19 19:17 All systems ED: reviewed and negative except as stated. Review of Systems: As Per HPI Constitutional: Denies: fever, chills, weakness, weight change, night sweats Eyes: Denies: vision change ENT ED: Denies: ear pain, throat pain, congestion, dysphagia Cardiovascular: Denies: chest pain, palpitations, dyspnea on exertion, syncope Respiratory: Denies: cough, dyspnea, wheezes Gastrointestinal: Denies: abdominal pain, nausea, vomiting, diarrhea, constipation Musculoskeletal: Denies: back pain, neck pain, joint swelling, arthralgia Neurological: Denies: weakness, numbness, paresthesias Hematological/Lymphatic: Denies: easy bleeding, easy bruising Past Medical History - Past Medical History Attestation: Yes The following information was validated with the patient. Source: patient Medical history: Reports: COPD, diabetes, hepatitis, other Surgical history: Reports: non-contributory, cholecystectomy, other Psychiatric history: Reports: anxiety, depression, prior suicide attempt, previous psychiatric hospitalization, other - Social History Smoking Status: Current every day smoker Smokeless Tobacco Status: No Alcohol use: Reports: none Drug use: Reports: marijuana, prescription drug abuse Physical Exam Physical exam: Patient is awake, alert and oriented in no acute distress. There are no limitations to the physical exam. Head: Normocephalic, atraumatic, normal inspection Eye: Normal appearance, PERRL, sclerae are anicteric. Conjunctiva noninjected. There is no periorbital swelling. ENT: Mucous membranes are moist Neck: Supple, nontender. Trachea is midline. No palpable lymphadenopathy. No meningeal signs. Chest: Normal inspection, symmetric chest wall rise. Respiratory: No respiratory distress Cardiovascular: Regular rate Extremities: Normal inspection Back: Normal inspection Neurological exam: Alert, oriented 3. Cranial nerves II through XII grossly intact. Normal gait Psychiatric: Normal affect, normal mood Skin: Warm and dry, intact, without masses, lesions or rashes. Normal color. - General Limitations: no limitations General appearance: alert, in no apparent distress Course Course Narrative: Patient medically cleared been evaluated by, SAMMIE Gonzales, with 1A. He consulted with the psychiatrist. Patient has been accepted for admission to [facility]. The pink slip has been drafted and signed by Dr. Benavidez. He has had [id number] time with patient and agrees with the assessment and plan. Vital Signs Temperature 98.4 F 02/21/19 15:02 Pulse Rate 98 02/21/19 15:02 Respiratory Rate 18 02/21/19 15:02 Blood Pressure 128/85 02/21/19 15:02 O2 Sat by Pulse Oximetry 95 02/21/19 15:02 Temperature 98.4 F 02/21/19 15:02 Pulse Rate 98 02/21/19 15:02 Respiratory Rate 18 02/21/19 15:02 Blood Pressure 128/85 02/21/19 15:02 O2 Sat by Pulse Oximetry 95 02/21/19 15:02 Oxygen Delivery Oxygen Delivery Room Air Psych - Lab Data Result diagrams: 02/21/19 15:24 02/21/19 15:24 Lab Results 02/21/19 02/21/19 02/21/19 Range/Units 15:24 15:24 15:25 WBC 10.5 (4.3-11.1) K/mcL RBC 5.00 (4.19-5.50) M/mcL Hgb 15.2 (12.9-16.9) g/dL Hct 46.1 (37.5-50.1) % MCV 92.2 (83.0-100.0) fL MCH 30.4 (28.0-33.3) pg MCHC 33.0 (31.6-35.5) g/dL RDW 15.0 H (11.5-14.5) % Plt Count 251 (140-400) K/mcL MPV 10.6 (9.4-12.4) fL Immature Gran % 0.6 (0-4) % Seg Neutrophils % 56.2 % Lymphocytes % 33.8 % Monocytes % 7.4 % Eosinophils % 1.7 % Basophils % 0.3 % Neutrophils # 5.9 (1.6-8.9) K/mcL Lymphocytes # 3.5 (0.6-4.6) K/mcL Monocytes # 0.8 (0.0-1.3) K/mcL Eosinophils # 0.2 (0.0-0.6) K/mcL Basophils # 0.0 (0.0-0.2) K/mcL Sodium 140 (136-145) mEq/L Potassium 3.7 (3.5-5.1) mEq/L Chloride 111 H (98-107) mEq/L Carbon Dioxide 22 L (23-29) mEq/L BUN 16 (6-20) mg/dL Creatinine 1.09 (0.70-1.30) mg/dL Est GFR ( Amer) > 60 (> 60) Est GFR (Non-Af Amer) > 60 (> 60) BUN/Creatinine Ratio 15 (6-26) Glucose 126 H (70-105) mg/dL Calculated Osmolality 293 (280-300) Calcium 9.0 (8.6-10.3) mg/dL Urine Color Dark Yellow (Yellow) Urine Clarity Clear (Clear) Urine pH 6.5 (5.0-8.0) pH Units Ur Specific Daphne 1.027 H (1.010-1.025) Urine Protein Trace (Neg-Trace) mg/dL Urine Glucose (UA) Normal (Normal) mg/dL Urine Ketones Trace H (Negative) mg/dL Urine Blood Negative (Negative) Urine Nitrite Negative (Negative) Urine Bilirubin Small H (Negative) Urine Urobilinogen Normal (Normal) mg/dL Ur Leukocyte Esterase Negative (Negative) Salicylates < 2.5 L (15.0-30.0) mg/dL Urine Opiates Screen (Ifoiau=090) ng/mL Ur Buprenorphine Scrn (Cutoff=5) ng/mL Acetaminophen < 10 L (10-20) mcg/mL Ur Barbiturates Screen (Fbdzhv=152) ng/mL Ur Phencyclidine Scrn (Cutoff=25) ng/mL Ur Amphetamines Screen (Afmypo=5428) ng/mL U Benzodiazepines Scrn (Eeqces=050) ng/mL Urine Cocaine Screen (Cutoff= 300) ng/mL U Marijuana (THC) Screen (Cutoff = 50) ng/mL Ur Drug Screen Interp Ethyl Alcohol < 10 (Less than 10) mg/dL 02/21/19 Range/Units 15:32 WBC (4.3-11.1) K/mcL RBC (4.19-5.50) M/mcL Hgb (12.9-16.9) g/dL Hct (37.5-50.1) % MCV (83.0-100.0) fL MCH (28.0-33.3) pg MCHC (31.6-35.5) g/dL RDW (11.5-14.5) % Plt Count (140-400) K/mcL MPV (9.4-12.4) fL Immature Gran % (0-4) % Seg Neutrophils % % Lymphocytes % % Monocytes % % Eosinophils % % Basophils % % Neutrophils # (1.6-8.9) K/mcL Lymphocytes # (0.6-4.6) K/mcL Monocytes # (0.0-1.3) K/mcL Eosinophils # (0.0-0.6) K/mcL Basophils # (0.0-0.2) K/mcL Sodium (136-145) mEq/L Potassium (3.5-5.1) mEq/L Chloride (98-107) mEq/L Carbon Dioxide (23-29) mEq/L BUN (6-20) mg/dL Creatinine (0.70-1.30) mg/dL Est GFR ( Amer) (> 60) Est GFR (Non-Af Amer) (> 60) BUN/Creatinine Ratio (6-26) Glucose (70-105) mg/dL Calculated Osmolality (280-300) Calcium (8.6-10.3) mg/dL Urine Color (Yellow) Urine Clarity (Clear) Urine pH (5.0-8.0) pH Units Ur Specific Daphne (1.010-1.025) Urine Protein (Neg-Trace) mg/dL Urine Glucose (UA) (Normal) mg/dL Urine Ketones (Negative) mg/dL Urine Blood (Negative) Urine Nitrite (Negative) Urine Bilirubin (Negative) Urine Urobilinogen (Normal) mg/dL Ur Leukocyte Esterase (Negative) Salicylates (15.0-30.0) mg/dL Urine Opiates Screen Negative (Ggortg=959) ng/mL Ur Buprenorphine Scrn Negative (Cutoff=5) ng/mL Acetaminophen (10-20) mcg/mL Ur Barbiturates Screen Negative (Thjhxx=161) ng/mL Ur Phencyclidine Scrn Negative (Cutoff=25) ng/mL Ur Amphetamines Screen Negative (Rdotff=3407) ng/mL U Benzodiazepines Scrn Negative (Tghxxx=577) ng/mL Urine Cocaine Screen Negative (Cutoff= 300) ng/mL U Marijuana (THC) Screen Positive H (Cutoff = 50) ng/mL Ur Drug Screen Interp See Below Ethyl Alcohol (Less than 10) mg/dL Psychiatric Medical Clearance - Medical Clearance Checklist Does the patient have a NEW psychiatric condition?: No Any abnormalities indicating possible medical illness?: No Any history of medical issues?: Yes Medical History: No Social History Section defined Any abnormal vital signs prior to transfer?: No Current Vitals: Last Vital Signs Temp 98.4 F 02/21/19 15:02 Pulse 98 02/21/19 15:02 Resp 18 02/21/19 15:02 BP 128/85 02/21/19 15:02 Pulse Ox 95 02/21/19 15:02 Is the patient intoxicated or cognitively impaired?: No Psychiatric Lab Panel: Drug Levels and Toxicity 02/21/19 02/21/19 15:24 15:32 Urine Opiates Screen Negative Acetaminophen < 10 L Ur Barbiturates Screen Negative Ur Phencyclidine Scrn Negative Ur Amphetamines Screen Negative U Benzodiazepines Scrn Negative Urine Cocaine Screen Negative U Marijuana (THC) Screen Positive H Ethyl Alcohol < 10 Any abnormalities on the physical exam?: No Any abnormal labs?: No Abnormal Labs: Abnormal lab results RDW 15.0 % (11.5-14.5) H 02/21/19 15:24 Chloride 111 mEq/L (98-107) H 02/21/19 15:24 Carbon Dioxide 22 mEq/L (23-29) L 02/21/19 15:24 Glucose 126 mg/dL (70-105) H 02/21/19 15:24 Ur Specific Daphne 1.027 (1.010-1.025) H 02/21/19 15:25 Urine Ketones Trace mg/dL (Negative) H 02/21/19 15:25 Urine Bilirubin Small (Negative) H 02/21/19 15:25 Salicylates < 2.5 mg/dL (15.0-30.0) L 02/21/19 15:24 Acetaminophen < 10 mcg/mL (10-20) L 02/21/19 15:24 U Marijuana (THC) Screen Positive ng/mL (Cutoff = 50) H 02/21/19 15:32 Does the patient require durable medical equiptment?: No Is the patient ambulatory?: Yes Is the patient a fall risk?: No Has the patient been medically cleared?: Yes Any acute medical condition require Tx prior to transfer?: No Statement of Medical Clearance: I have evaluated the patient, reviewed diagnostic information, and certify that the patient's medical condition is sufficiently stable that transfer to the psychiatric unit does not pose a significant risk of deterioration. Attestation Statement - Attestation Attestation: For this encounter, I have reviewed the REPORTING CONSULTANT or PA documentation, treatment plan, and medical decision making; and I have had face to face time with this patient.
[2019-02-21 15:52] LABS: Bilirubin,Urine Small (Negative); Blood,Urine Negative (Negative); Clarity,Urine Clear (Clear); Color,Urine Dark Yellow (Yellow); Glucose,Urine (UA) Normal (Normal); Ketones,Urine Trace mg/dL (Negative); Leukocyte Esterase,Urine Negative (Negative); Nitrite,Urine Negative (Negative); PH,Urine 6.5 pH Units (5.0-8.0); Protein,Urine Trace mg/dL (Neg-Trace); Specific Gravity,Urine 1.027 (1.010-1.025); Urobilinogen,Urine Normal (Normal)
[2019-02-21 16:00] LABS: Basophils % 0.3 %; Eosinophils # 0.2 K/mcL (0.0-0.6); Eosinophils % 1.7 %; Hematocrit 46.1 % (37.5-50.1); Hemoglobin 15.2 g/dL (12.9-16.9); Immature Granulocytes % 0.6 % (0-4); Lymphocytes # 3.5 K/mcL (0.6-4.6); Lymphocytes % 33.8 %; Mean Corpuscular Hemoglobin 30.4 pg (28.0-33.3); Mean Corpuscular Volume 92.2 fL (83.0-100.0); Mean Platelet Volume 10.6 fL (9.4-12.4); Monocytes # 0.8 K/mcL (0.0-1.3); Monocytes % 7.4 %; Neutrophils # 5.9 K/mcL (1.6-8.9); Platelet Count 251 K/mcL (140-400); Segmented Neutrophils % 56.2 %; White Blood Count 10.5 K/mcL (4.3-11.1)
[2019-02-21 16:08] LABS: Amphetamine Screen,Urine Negative ng/mL (Cutoff=1000); Barbiturate Screen,Urine Negative ng/mL (Cutoff=200); Benzodiazepines Screen,Urine Negative ng/mL (Cutoff=200); Cannabinoid Screen,Urine Positive ng/mL (Cutoff = 50); Cocaine Screen,Urine Negative ng/mL (Cutoff= 300); Opiate Screen,Urine Negative ng/mL (Cutoff=300); Phencyclidine Screen,Urine Negative ng/mL (Cutoff=25)
[2019-02-21 16:19] LABS: Acetaminophen < 10 mcg/mL (10-20); BUN/Creatinine Ratio 15 (6-26); Blood Urea Nitrogen 16 mg/dL (6-20); Carbon Dioxide 22 mEq/L (23-29); Chloride 111 mEq/L (98-107); Ethanol < 10 mg/dL (Less than 10); Glucose 126 mg/dL (70-105); Osmolality,Calculated 293 (280-300); Potassium 3.7 mEq/L (3.5-5.1); Salicylate < 2.5 mg/dL (15.0-30.0); Sodium 140 mEq/L (136-145); eGFR For African Americans > 60 (> 60); eGFR For Non-African Americans > 60 (> 60)
[2019-02-21] MEDS ORDERED: Haloperidol Lactate 5 MG/ML VIAL IM PRN (18:09)
[2019-02-21] MEDS ORDERED: hydrOXYzine pamoate 25 MG CAPSULE PO PRN (18:09)
[2019-02-21] MEDS ORDERED: *HR* LORazepam 1 MG TABLET PO PRN (18:09)
[2019-02-21] MEDS ORDERED: *HR* LORazepam 2 MG/ML VIAL IM PRN (18:09)
[2019-02-21] MEDS ORDERED: Ibuprofen 400 MG TABLET PO PRN (18:09)
[2019-02-21] MEDS ORDERED: MOM Conc 10 ML UD.LIQ PO PRN (18:09)
[2019-02-21] MEDS ORDERED: Mag Hydrox/Al Hydrox/Simeth 30 ML UDC PO PRN (18:09)
--- NOTE | 2019-02-21 18:10 | Emergency Department Note ---
Disposition Clinical Impression: Suicidal ideation Disposition: Admitted As Inpatient Condition: Good Time of Disposition: 18:06 General Adult HPI - General Chief complaint: ED Psychiatric Symptoms Stated complaint: SI Time Seen by Provider: 02/21/19 15:15 Source: patient, EMS Mode of arrival: private vehicle Limitations: no limitations - History of Present Illness Pain Scale: 0 - Related Data Home Medications Medication Instructions Recorded Confirmed Divalproex (24 HR) [Depakote ER 250 mg PO BID 03/21/18 12/17/18 (24 HR)] Divalproex (24 HR) [Depakote ER 500 mg PO BID 03/21/18 12/17/18 (24 HR)] Loxapine Succinate [Loxapine] 10 mg PO HS 03/21/18 12/17/18 Benztropine Mesylate 0.5 mg PO HS 12/17/18 12/17/18 Budesonide/Formoterol 160/4.5 2 puff PO BID 12/17/18 12/17/18 [Symbicort 160/4.5] Cyclobenzaprine HCl [Fexmid] 7.5 mg PO TID PRN 12/17/18 12/17/18 Insulin ASPART [Novolog Flexpen] 0 unit SQ TIDWM 12/17/18 12/17/18 Insulin Degludec/Liraglutide 0 - 50 unit SQ DAILY 12/17/18 12/17/18 [Xultophy 100 Unit-3.6MG/ml Pen] Prazosin HCl [Minipress] 10 mg PO HS 12/17/18 12/17/18 Pregabalin [Lyrica] 150 mg PO BID 12/17/18 12/17/18 Ziprasidone [Geodon] 80 mg PO HS 12/17/18 12/17/18 Previous Rx's Medication Instructions Recorded Albuterol Sulfate [Proventil 2 puff IH Q4H PRN 02/01/17 Inhaler] Cyclobenzaprine [Flexeril] 10 mg PO TID tablet 12/19/18 Insulin LISPRO [HumaLOG] 10 units SQ TIDWM vial 12/19/18 Prazosin [Minipress] 3 mg PO HS capsule 12/19/18 Pregabalin [Lyrica] 150 mg PO BID capsule 12/19/18 Tamsulosin [Flomax] 0.4 mg PO DAILY capsule 12/19/18 traZODone [TraZODone] 50 mg PO HS tablet 12/19/18 Cyclobenzaprine [Flexeril] 10 mg PO TID #15 tablet 02/15/19 Lidocaine Patch [Lidoderm 5% patch] 1 each TP DAILY #14 adh..patch 02/15/19 predniSONE [Prednisone] 50 mg PO DAILY 5 Days #5 tablet 02/15/19 Allergies Allergy/AdvReac Type Severity Reaction Status Date / Time No Known Allergies Allergy Verified 02/15/19 19:17 Constitutional: Denies: fever, chills, weakness, weight change, night sweats Eyes: Denies: vision change ENT ED: Denies: ear pain, throat pain, congestion, dysphagia Cardiovascular: Denies: chest pain, palpitations, dyspnea on exertion, syncope Respiratory: Denies: cough, dyspnea, wheezes Gastrointestinal: Denies: abdominal pain, nausea, vomiting, diarrhea, constipation Musculoskeletal: Denies: back pain, neck pain, joint swelling, arthralgia Neurological: Denies: weakness, numbness, paresthesias Hematological/Lymphatic: Denies: easy bleeding, easy bruising Past Medical History - Past Medical History Medical history: Reports: COPD, diabetes, hepatitis, other Surgical history: Reports: non-contributory, cholecystectomy, other Psychiatric history: Reports: anxiety, depression, prior suicide attempt, previous psychiatric hospitalization, other - Social History Smoking Status: Current every day smoker Smokeless Tobacco Status: No Alcohol use: Reports: none Drug use: Reports: marijuana, prescription drug abuse Physical Exam - General Limitations: no limitations General appearance: alert, in no apparent distress Course Vital Signs Temperature 98.4 F 02/21/19 15:02 Pulse Rate 98 02/21/19 15:02 Respiratory Rate 18 02/21/19 15:02 Blood Pressure 128/85 02/21/19 15:02 O2 Sat by Pulse Oximetry 95 02/21/19 15:02 Temperature 98.4 F 02/21/19 15:02 Pulse Rate 98 02/21/19 15:02 Respiratory Rate 18 02/21/19 15:02 Blood Pressure 128/85 02/21/19 15:02 O2 Sat by Pulse Oximetry 95 02/21/19 15:02 Oxygen Delivery Oxygen Delivery Room Air Medical Decision Making - Lab Data Result diagrams: 02/21/19 15:24 09/27/19 15:24 Lab Results 02/21/19 02/21/19 02/21/19 Range/Units 15:24 15:24 15:25 WBC 10.5 (4.3-11.1) K/mcL RBC 5.00 (4.19-5.50) M/mcL Hgb 15.2 (12.9-16.9) g/dL Hct 46.1 (37.5-50.1) % MCV 92.2 (83.0-100.0) fL MCH 30.4 (28.0-33.3) pg MCHC 33.0 (31.6-35.5) g/dL RDW 15.0 H (11.5-14.5) % Plt Count 251 (140-400) K/mcL MPV 10.6 (9.4-12.4) fL Immature Gran % 0.6 (0-4) % Seg Neutrophils % 56.2 % Lymphocytes % 33.8 % Monocytes % 7.4 % Eosinophils % 1.7 % Basophils % 0.3 % Neutrophils # 5.9 (1.6-8.9) K/mcL Lymphocytes # 3.5 (0.6-4.6) K/mcL Monocytes # 0.8 (0.0-1.3) K/mcL Eosinophils # 0.2 (0.0-0.6) K/mcL Basophils # 0.0 (0.0-0.2) K/mcL Sodium 140 (136-145) mEq/L Potassium 3.7 (3.5-5.1) mEq/L Chloride 111 H (98-107) mEq/L Carbon Dioxide 22 L (23-29) mEq/L BUN 16 (6-20) mg/dL Creatinine 1.09 (0.70-1.30) mg/dL Est GFR ( Amer) > 60 (> 60) Est GFR (Non-Af Amer) > 60 (> 60) BUN/Creatinine Ratio 15 (6-26) Glucose 126 H (70-105) mg/dL Calculated Osmolality 293 (280-300) Calcium 9.0 (8.6-10.3) mg/dL Urine Color Dark Yellow (Yellow) Urine Clarity Clear (Clear) Urine pH 6.5 (5.0-8.0) pH Units Ur Specific Kimper 1.027 H (1.010-1.025) Urine Protein Trace (Neg-Trace) mg/dL Urine Glucose (UA) Normal (Normal) mg/dL Urine Ketones Trace H (Negative) mg/dL Urine Blood Negative (Negative) Urine Nitrite Negative (Negative) Urine Bilirubin Small H (Negative) Urine Urobilinogen Normal (Normal) mg/dL Ur Leukocyte Esterase Negative (Negative) Salicylates < 2.5 L (15.0-30.0) mg/dL Urine Opiates Screen (Ddfebs=130) ng/mL Ur Buprenorphine Scrn (Cutoff=5) ng/mL Acetaminophen < 10 L (10-20) mcg/mL Ur Barbiturates Screen (Pixubo=370) ng/mL Ur Phencyclidine Scrn (Cutoff=25) ng/mL Ur Amphetamines Screen (Phzjyf=6509) ng/mL U Benzodiazepines Scrn (Kczgal=263) ng/mL Urine Cocaine Screen (Cutoff= 300) ng/mL U Marijuana (THC) Screen (Cutoff = 50) ng/mL Ur Drug Screen Interp Ethyl Alcohol < 10 (Less than 10) mg/dL 02/21/19 Range/Units 15:32 WBC (4.3-11.1) K/mcL RBC (4.19-5.50) M/mcL Hgb (12.9-16.9) g/dL Hct (37.5-50.1) % MCV (83.0-100.0) fL MCH (28.0-33.3) pg MCHC (31.6-35.5) g/dL RDW (11.5-14.5) % Plt Count (140-400) K/mcL MPV (9.4-12.4) fL Immature Gran % (0-4) % Seg Neutrophils % % Lymphocytes % % Monocytes % % Eosinophils % % Basophils % % Neutrophils # (1.6-8.9) K/mcL Lymphocytes # (0.6-4.6) K/mcL Monocytes # (0.0-1.3) K/mcL Eosinophils # (0.0-0.6) K/mcL Basophils # (0.0-0.2) K/mcL Sodium (136-145) mEq/L Potassium (3.5-5.1) mEq/L Chloride (98-107) mEq/L Carbon Dioxide (23-29) mEq/L BUN (6-20) mg/dL Creatinine (0.70-1.30) mg/dL Est GFR ( Amer) (> 60) Est GFR (Non-Af Amer) (> 60) BUN/Creatinine Ratio (6-26) Glucose (70-105) mg/dL Calculated Osmolality (280-300) Calcium (8.6-10.3) mg/dL Urine Color (Yellow) Urine Clarity (Clear) Urine pH (5.0-8.0) pH Units Ur Specific Kimper (1.010-1.025) Urine Protein (Neg-Trace) mg/dL Urine Glucose (UA) (Normal) mg/dL Urine Ketones (Negative) mg/dL Urine Blood (Negative) Urine Nitrite (Negative) Urine Bilirubin (Negative) Urine Urobilinogen (Normal) mg/dL Ur Leukocyte Esterase (Negative) Salicylates (15.0-30.0) mg/dL Urine Opiates Screen Negative (Vzgyya=920) ng/mL Ur Buprenorphine Scrn Negative (Cutoff=5) ng/mL Acetaminophen (10-20) mcg/mL Ur Barbiturates Screen Negative (Ikzxxu=491) ng/mL Ur Phencyclidine Scrn Negative (Cutoff=25) ng/mL Ur Amphetamines Screen Negative (Arhjsy=6959) ng/mL U Benzodiazepines Scrn Negative (Vckdqh=193) ng/mL Urine Cocaine Screen Negative (Cutoff= 300) ng/mL U Marijuana (THC) Screen Positive H (Cutoff = 50) ng/mL Ur Drug Screen Interp See Below Ethyl Alcohol (Less than 10) mg/dL Attestation Statement - Attestation Attestation: For this encounter, I have reviewed the RECORDS SECTION SUPERVISOR or PA documentation, treatment plan, and medical decision making; and I have had face to face time with this patient. Patient seen in conjunction with DAVI Myrick. 48-year-old male presenting with suicidal ideation with plans to cut himself or take his medications. He has a prior history of suicide attempts in the past. He reports intermittent marijuana use. Denies any auditory or visual hallucinations. No other complaints. General: Alert, no acute distress HENT: Normocephalic, Atraumatic Neck: No JVD Cardiovascular: Regular rate and rhythm. No appreciable murmurs Respiratory: Lungs CTAB. No wheezing/rhonchi Abdominal: Soft, non tender. No peritoneal findings Extremities: No peripheral edema Neuro: Alert, Mentating appropriately, No focal deficits Skin: Warm, Dry Plan: Patient was medically cleared, labs are grossly unremarkable. He was evaluated by the psychiatric service. Patient is pink slipped. He is accepted for admission for suicidal ideation with plan.
[2019-02-21] MEDS ORDERED: Dextrose Gel 15 GM/37.5 ML TUBE PO PRN ×2 (18:14)
[2019-02-21] MEDS: Divalproex (24 HR) 500 MG TABLET PO SCH (21:45)
[2019-02-21] MEDS: *HR* Metformin 500 MG TABLET PO SCH (21:46)
[2019-02-21] MEDS: Pregabalin 75 MG CAPSULE PO SCH (21:46)
[2019-02-21] MEDS: Perphenazine 8 MG TABLET PO SCH (21:46)
[2019-02-22] MEDS: Loxapine Succinate [Loxapine] 10 MG PO SCH ×2 (01:11→20:43)
[2019-02-22] MEDS: Insulin LISPRO 300 UNITS/3 ML VIAL SQ SCH ×5 (01:17→20:42)
[2019-02-22] MEDS: Finasteride 5 MG TABLET PO SCH (09:01)
[2019-02-22] MEDS: Perphenazine 8 MG TABLET PO SCH ×3 (09:01→20:37)
[2019-02-22] MEDS: Pregabalin 75 MG CAPSULE PO SCH ×2 (09:01→20:38)
[2019-02-22] MEDS: *HR* Metformin 500 MG TABLET PO SCH ×2 (09:02→20:37)
--- NOTE | 2019-02-22 11:07 | Psychiatry History & Physical ---
Date of Encounter: 02/22/19 Time of Encounter: 10:40 History of Present Illness Patient Stated Chief Complaint: "I want to " Medicare Admission Attestation: For traditional Medicare patients the provided hospital inpatient services are reasonable and necessary and in the case of services not specified as inpatient-only under 42 CFR 419.22 (n), that they are appropriately provided as inpatient services in accordance 42 CFR 412.3. For Critical Access Hospital the patient may reasonably be expected to be discharged or transferred to a hospital within 96 hours after admission to the Critical Access Hospital. Admitted From: Emergency Dept Plans for Post Hospital Care: Home History of Present Illness: Mr. Menon is a 48 year old male who was admitted from the emergency room where he presented with suicidal ideations with a plan to overdose or hang himself or cut his wrists. He reported his main stressor is that he and his mother have been evicted from their home and only have a few days to get out. His mother has dementia and he is very worried about what this means for both of them. He says he has been taking his medications because he is on a court order to do so. He reports sad mood, decreased interest feelings of worthlessness and low energy. He says that he continues to have auditory hallucinations that at times tell him to kill himself and has paranoia. Past Med Surg Social Fam HX - Past Medical History Medical history: COPD, diabetes, hepatitis, other - Past Psychiatric History Psychiatric history: Reports: prior suicide attempt, schizophrenia, previous psychiatric hospitalization Past psychiatric history details: He has been hospitalized multiple times in the past for suicide attempts. He reports 5 separate attempts including: cutting and overdose. He has a history of Schizoaffective, bipolar type. A home health nurse assists with his medications. He admits to forgetting to take his medications at night sometimes. Heath Salazar is his mental health provider at [facility]. He reports recently being started on Risperdal Consta injection but he cannot remember exactly when his last was. Family psychiatric history: Yes Family Psychiatric History Details: Family Psychiatric History Details: He reports mother tried to end her life by overdose on 1 occasion. Family History of Suicide: Attempted Family Suicide History Details: Mother. He was unsure of details. - Past Surgical History Surgical History: non-contributory, cholecystectomy, other - Social History Smoking Status: Current every day smoker Smokeless Tobacco Status: No Alcohol use: none Drug use: marijuana, prescription drug abuse Occupational status: disabled Current living situation: Home - Independent, Homeless Activity Level: Independent ambulation Recent Out of Country Travel Within the Last 8 Weeks: No Exposure or Possible Exposure to Illness During Travel: No Additional social history: Lives with his mother who has dementia. They currently live in an apartment but are about to be evicted and homeless. - Family History Mother Adopted: No Family Member Ethnicity: Non- Living Status: Still Living Hx Family Cardiac Disorders: No Hx Family Respiratory Disorders: No Hx Family Cancer: Yes Hx Family GI Disorders: No Hx Family Endocrine Disorder: No Hx Family Neuromuscular Disorders: No Hx Family Neurologic Disorders: No Hx Family HEENT Disorders: No Hx Family Autoimmune Disorders: No Father Adopted: No Family Member Ethnicity: Non- Living Status: Still Living Hx Family Cardiac Disorders: No Hx Family Respiratory Disorders: Yes Hx Family Cancer: No Hx Family GI Disorders: No Hx Family Endocrine Disorder: No Hx Family Neuromuscular Disorders: No Hx Family Neurologic Disorders: No Hx Family HEENT Disorders: No Hx Family Autoimmune Disorders: No Medications & Allergies Albuterol Sulfate [Proventil Inhaler] 2 puff IH Q4H PRN 02/01/17 [Rx] Divalproex (24 HR) [Depakote ER (24 HR)] 2,000 mg PO HS 03/21/18 [History] Divalproex (24 HR) [Depakote ER (24 HR)] 250 mg PO BID 03/21/18 [History] Loxapine Succinate [Loxapine] 10 mg PO HS 03/21/18 [History] Benztropine Mesylate 0.5 mg PO HS 12/17/18 [History] Budesonide/Formoterol 160/4.5 [Symbicort 160/4.5] 2 puff PO BID 12/17/18 [History] Insulin ASPART [Novolog Flexpen] 0 unit SQ TIDWM 12/17/18 [History] Insulin Degludec/Liraglutide [Xultophy 100 Unit-3.6MG/ml Pen] 0 - 50 unit SQ DAILY 12/17/18 [History] Pregabalin [Lyrica] 150 mg PO BID 12/17/18 [History] Ziprasidone [Geodon] 80 mg PO HS 12/17/18 [History] Insulin LISPRO [HumaLOG] 10 units SQ TIDWM vial 12/19/18 [Rx] Tamsulosin [Flomax] 0.4 mg PO DAILY capsule 12/19/18 [Rx] traZODone [TraZODone] 50 mg PO HS tablet 12/19/18 [Rx] Lidocaine Patch [Lidoderm 5% patch] 1 each TP DAILY #14 adh..patch 02/15/19 [Rx] Chlorzoxazone 500 mg PO BID 02/21/19 [History] Finasteride [Proscar] 5 mg PO DAILY 02/21/19 [History] Metformin HCl [Metformin HCl ER] 500 mg PO BID 02/21/19 [History] Paliperidone Palmitate [Invega Sustenna] 234 mg IM QMONTH 02/21/19 [History] Perphenazine [Trilafon] 8 mg PO BID 02/21/19 [History] Prazosin HCl [Minipress] 5 mg PO HS 02/21/19 [History] Allergy/AdvReac Type Severity Reaction Status Date / Time No Known Allergies Allergy Verified 02/15/19 19:17 Review of Systems Constitutional: Reports: weakness Eyes: Denies: eye pain Ears, Nose, Throat: Denies: ear pain Cardiovascular: Denies: chest pain Respiratory: Denies: cough Gastrointestinal: Denies: abdominal pain Genitourinary male: Denies: urgency Musculoskeletal: Denies: back pain Integumentary: Denies: rash Neurological: Reports: weakness Psychiatric: Reports: depression, abnormal sleep pattern, suicidal ideation, auditory hallucinations, visual hallucinations Endocrine: Reports: fatigue Hematologic/Lymphatic: Denies: easy bleeding Allergic/Immunologic: Denies: facial swelling Exam - HEENT Head exam IM: Present: atraumatic Eye exam IM: Present: EOMI ENT exam IM: Present: mucous membranes moist - Neurological Neurological exam: Present: CN II-XII intact (Mostly) - Respiratory Respiratory exam IM: Absent: respiratory distress - GI/Abdominal GI/Abdominal exam IM: Present: no peritoneal signs - Extremities Extremities exam IM: Present: full ROM - Skin Skin exam IM: Absent: abrasion - Constitutional Vitals: Temp Pulse Resp BP Pulse Ox 97.8 F 75 18 117/84 99 02/22/19 09:00 02/22/19 09:00 02/22/19 09:00 02/22/19 09:00 02/22/19 09:00 General appearance: age & developmentally appropriate, disheveled - Musculoskeletal Gait: slow Station: stooped Strength & Tone: mild weakness - Psychiatric Patient Orientation: Yes Person, Yes Time, Yes Place, Yes Circumstance Level of alertness: Alert Behavior: nervous, anxious Psychomotor activity: Slowed Eye Contact: Minimal Contact Mood Description: Depressed, Anxious Patient description of mood: Worried Affect description: flat Speech Volume: Soft/Quiet Speech pattern: slowed Language & Vocabulary: limited Thought Process: Thought Blocking Thought Content: Yes Suicidal ideation, Yes Paranoid delusion Perceptual Disturbances: Yes Auditory hallucinations Attention Span Ability: Capable of Focused Attention Memory Description: Grossly Intact Patient Reliability: Questionable Historian Fund of knowledge: Yes abstraction ability, Yes average, Yes aware of current events Intelligence Estimate: Average Judgment: Poor Insight: None Results - Drug Levels and Toxicology Drug Levels and Toxicology: Drug Levels and Toxicity 02/21/19 02/21/19 15:24 15:32 Urine Opiates Screen Negative Acetaminophen < 10 L Ur Barbiturates Screen Negative Ur Phencyclidine Scrn Negative Ur Amphetamines Screen Negative U Benzodiazepines Scrn Negative Urine Cocaine Screen Negative U Marijuana (THC) Screen Positive H Ethyl Alcohol < 10 - Labs Labs: Laboratory Last Values WBC 10.5 K/mcL (4.3-11.1) 02/21/19 15:24 RBC 5.00 M/mcL (4.19-5.50) 02/21/19 15:24 Hgb 15.2 g/dL (12.9-16.9) 02/21/19 15:24 Hct 46.1 % (37.5-50.1) 02/21/19 15:24 MCV 92.2 fL (83.0-100.0) 02/21/19 15:24 MCH 30.4 pg (28.0-33.3) 02/21/19 15:24 MCHC 33.0 g/dL (31.6-35.5) 02/21/19 15:24 RDW 15.0 % (11.5-14.5) H 02/21/19 15:24 Plt Count 251 K/mcL (140-400) 02/21/19 15:24 MPV 10.6 fL (9.4-12.4) 02/21/19 15:24 Immature Gran % 0.6 % (0-4) 02/21/19 15:24 Seg Neutrophils % 56.2 % 02/21/19 15:24 Lymphocytes % 33.8 % 02/21/19 15:24 Monocytes % 7.4 % 02/21/19 15:24 Eosinophils % 1.7 % 02/21/19 15:24 Basophils % 0.3 % 02/21/19 15:24 Neutrophils # 5.9 K/mcL (1.6-8.9) 02/21/19 15:24 Lymphocytes # 3.5 K/mcL (0.6-4.6) 02/21/19 15:24 Monocytes # 0.8 K/mcL (0.0-1.3) 02/21/19 15:24 Eosinophils # 0.2 K/mcL (0.0-0.6) 02/21/19 15:24 Basophils # 0.0 K/mcL (0.0-0.2) 02/21/19 15:24 Sodium 140 mEq/L (136-145) 02/21/19 15:24 Potassium 3.7 mEq/L (3.5-5.1) 02/21/19 15:24 Chloride 111 mEq/L (98-107) H 02/21/19 15:24 Carbon Dioxide 22 mEq/L (23-29) L 02/21/19 15:24 BUN 16 mg/dL (6-20) 02/21/19 15:24 Creatinine 1.09 mg/dL (0.70-1.30) 02/21/19 15:24 Est GFR ( Amer) > 60 (> 60) 02/21/19 15:24 Est GFR (Non-Af Amer) > 60 (> 60) 02/21/19 15:24 BUN/Creatinine Ratio 15 (6-26) 02/21/19 15:24 Glucose 126 mg/dL (70-105) H 02/21/19 15:24 POC Glucose 144 mg/dL (70-99) H 02/22/19 09:05 Calculated Osmolality 293 (280-300) 02/21/19 15:24 Calcium 9.0 mg/dL (8.6-10.3) 02/21/19 15:24 Urine Color Dark Yellow (Yellow) 02/21/19 15:25 Urine Clarity Clear (Clear) 02/21/19 15:25 Urine pH 6.5 pH Units (5.0-8.0) 02/21/19 15:25 Ur Specific Shaw 1.027 (1.010-1.025) H 02/21/19 15:25 Urine Protein Trace mg/dL (Neg-Trace) 02/21/19 15:25 Urine Glucose (UA) Normal mg/dL (Normal) 02/21/19 15:25 Urine Ketones Trace mg/dL (Negative) H 02/21/19 15:25 Urine Blood Negative (Negative) 02/21/19 15:25 Urine Nitrite Negative (Negative) 02/21/19 15:25 Urine Bilirubin Small (Negative) H 02/21/19 15:25 Urine Urobilinogen Normal mg/dL (Normal) 02/21/19 15:25 Ur Leukocyte Esterase Negative (Negative) 02/21/19 15:25 Salicylates < 2.5 mg/dL (15.0-30.0) L 02/21/19 15:24 Urine Opiates Screen Negative ng/mL (Hhmgdm=479) 02/21/19 15:32 Ur Buprenorphine Scrn Negative ng/mL (Cutoff=5) 02/21/19 15:32 Acetaminophen < 10 mcg/mL (10-20) L 02/21/19 15:24 Ur Barbiturates Screen Negative ng/mL (Sxwqdg=535) 02/21/19 15:32 Ur Phencyclidine Scrn Negative ng/mL (Cutoff=25) 02/21/19 15:32 Ur Amphetamines Screen Negative ng/mL (Lhzowv=3918) 02/21/19 15:32 U Benzodiazepines Scrn Negative ng/mL (Enbubg=660) 02/21/19 15:32 Urine Cocaine Screen Negative ng/mL (Cutoff= 300) 02/21/19 15:32 U Marijuana (THC) Screen Positive ng/mL (Cutoff = 50) H 02/21/19 15:32 Ur Drug Screen Interp See Below 02/21/19 15:32 Ethyl Alcohol < 10 mg/dL (Less than 10) 02/21/19 15:24 Assessment and Plan (1) Schizophrenia Current visit: Yes Status: Acute Plan: Admit inpatient for safety and stabilization, Close observation, Suicide Precautions per unit protocol, Encourage participation in unit milieu, Group Therapy, Monitor sleep, Monitor appetite Additional Plan: We will need to find out when he got his last Risperdal Consta injection. We will continue his Depakote. He was on loxapine at home which we do not have on formulary he was also on Trilafon at home so I will just increase the Trilafon to 8 3 times a day since we cannot do the loxapine. Encourage group attendance. Equals 0. Will order hemoglobin A1c and lipids. Risks, benefits, side effects, alternatives discussed w/pt: Yes Patient agreeable to treatment: Yes Plans for Post Hospital Care: Home Estimated Length of Stay (Days): 5 Qualifiers: Schizophrenia type: paranoid schizophrenia Qualified Code(s): F20.0 - Paranoid schizophrenia
[2019-02-22] MEDS: Nicotine 2 MG GUM BC PRN (12:52)
[2019-02-22 17:06] LABS: Estimated Average Glucose 163 mg/dl
[2019-02-22 17:20] LABS: Chol/HDL Ratio 4.9 (0-4.9)
[2019-02-22 17:25] LABS: Thyroid Stimulating Hormone 0.401 mcIU/mL (0.340-5.600)
[2019-02-22] MEDS: Divalproex (24 HR) 500 MG TABLET PO SCH (20:37)
[2019-02-23] MEDS: Insulin LISPRO 300 UNITS/3 ML VIAL SQ SCH ×4 (08:35→21:22)
[2019-02-23] MEDS: Finasteride 5 MG TABLET PO SCH (08:36)
[2019-02-23] MEDS: Pregabalin 75 MG CAPSULE PO SCH ×2 (08:36→21:05)
[2019-02-23] MEDS: *HR* Metformin 500 MG TABLET PO SCH ×2 (08:36→21:05)
[2019-02-23] MEDS: Perphenazine 8 MG TABLET PO SCH ×3 (08:36→21:05)
--- NOTE | 2019-02-23 09:48 | Psychiatry Progress Note ---
Date of Encounter: 02/23/19 Time of Encounter: 08:00 Subjective Interval history: Patient continues to endorse suicidal ideations with a plan to cut his throat. He is very worried about his mother and believes she has dementia though when she visited last night staff observed she seemed to do fairly well in that environment. The patient says that she often is forgetful and he worries she may get lost at some point. He is not concerned about her caring for herself in the home right now without him. He is interested in going [facility] once he is stable. He reports some auditory hallucinations at times telling him to kill himself. He reports that his nightmares are very bad last night as we only have him on 5 mg of prazosin and his outpatient physician had him on 10 mg which is consistent with what is in the med reconciliation. Review of Systems Psychiatric: Reports: depression, abnormal sleep pattern, suicidal ideation, auditory hallucinations, visual hallucinations Results - Vital Signs Vital Signs: Temp Pulse Resp BP Pulse Ox 97.6 F 73 16 121/88 97 02/23/19 09:00 02/23/19 09:00 02/23/19 09:00 02/23/19 09:00 02/23/19 09:00 - Labs Labs: Laboratory Results - last 24 hr 02/22/19 02/22/19 02/22/19 12:03 16:22 16:32 POC Glucose 86 91 Est Mean Plasma Glucose 163 Hemoglobin A1c 7.3 H Triglycerides Cholesterol LDL Cholesterol, Calc VLDL Cholesterol, Calc HDL Cholesterol Cholesterol/HDL Ratio TSH Valproic Acid 02/22/19 02/22/19 02/23/19 16:32 20:35 08:11 POC Glucose 111 H 130 H Est Mean Plasma Glucose Hemoglobin A1c Triglycerides 156 H Cholesterol 161 LDL Cholesterol, Calc 97 VLDL Cholesterol, Calc 31 H HDL Cholesterol 33 L Cholesterol/HDL Ratio 4.9 TSH 0.401 Valproic Acid 42 L Assessment and Plan (1) Schizophrenia Current visit: Yes Status: Acute Plan: Continue hospitalization, Close observation, Suicide Precautions per unit protocol, Encourage participation in unit milieu, Group Therapy, Monitor sleep, Monitor appetite Additional Plan: Increase prazosin to 10 mg by mouth daily at bedtime. Encourage group therapy. Therapist when he returns on Sunday we will get records from [facility] to confirm all of home medications and his last long-acting injectable shot. Risks, benefits, side effects, alternatives discussed w/pt: Yes Patient agreeable to treatment: Yes Qualifiers: Schizophrenia type: paranoid schizophrenia Qualified Code(s): F20.0 - Paranoid schizophrenia Consult Discharge Plan - Plan Referrals: NONE,PCP [Primary Care Provider] - Psychiatry Exam - Constitutional Vitals: Temp Pulse Resp BP Pulse Ox 97.6 F 73 16 121/88 97 02/23/19 09:00 02/23/19 09:00 02/23/19 09:00 02/23/19 09:00 02/23/19 09:00 General appearance: disheveled - Musculoskeletal Gait: slow Station: stooped Strength & Tone: mild weakness - Psychiatric Patient Orientation: Yes Person, Yes Time, Yes Place Level of alertness: Alert Behavior: suspicious Psychomotor activity: Slowed Eye Contact: Minimal Contact Mood Description: Depressed Patient description of mood: Sad Affect description: flat Speech Volume: Soft/Quiet Speech pattern: slowed Language & Vocabulary: consistent with education Thought Process: Disorganized Thought Content: Yes Suicidal ideation, Yes Paranoid delusion Perceptual Disturbances: Yes Auditory hallucinations Attention Span Ability: Capable of Focused Attention Memory Description: Grossly Intact Patient Reliability: Reliable Historian Fund of knowledge: Yes abstraction ability, Yes aware of current events Intelligence Estimate: Average Judgment: Limited Insight: Minimal
[2019-02-23] MEDS: Nicotine 2 MG GUM BC PRN (16:52)
[2019-02-23] MEDS: Divalproex (24 HR) 500 MG TABLET PO SCH (21:05)
[2019-02-23] MEDS: traZODone 50 MG TABLET PO PRN (21:05)
[2019-02-23] MEDS: Loxapine Succinate [Loxapine] 10 MG PO SCH (21:22)
[2019-02-24] MEDS: Insulin LISPRO 300 UNITS/3 ML VIAL SQ SCH ×4 (08:30→20:14)
[2019-02-24] MEDS: Finasteride 5 MG TABLET PO SCH (09:27)
[2019-02-24] MEDS: *HR* Metformin 500 MG TABLET PO SCH ×2 (09:27→20:13)
[2019-02-24] MEDS: Pregabalin 75 MG CAPSULE PO SCH ×2 (09:28→20:13)
[2019-02-24] MEDS: Perphenazine 8 MG TABLET PO SCH ×3 (09:28→20:13)
--- NOTE | 2019-02-24 12:24 | Psychiatry Progress Note ---
Date of Encounter: 02/24/19 Time of Encounter: 12:20 Subjective Interval history: Client reports he is feeling much better. Worried about his mother but denies any further thoughts of hurting himself. Will make an APS referral today. Client thinks his mother has dementia and he is concerned she may have been evicted today. Client is homeless. Wants to go to [facility] but they have not had any beds available in over a week. Can make a referral but placement may be difficult. Client denies any drug use other than occasional THC so rehab not an option. Client recently endorsed hallucinations but not presenting as psychotic today. Slightly unkempt but otherwise doing ok. Review of Systems Constitutional: Denies: fever, chills, weakness, weight change Eyes: Denies: eye pain, vision change Ears, Nose, Throat: Denies: ear pain, throat pain, dental pain, hearing loss, congestion Cardiovascular: Denies: chest pain, palpitations, dyspnea on exertion Respiratory: Denies: cough, dyspnea, wheezes Gastrointestinal: Denies: abdominal pain, nausea, vomiting, diarrhea, constipation Musculoskeletal: Reports: back pain Neurological: Denies: headache, weakness, numbness, memory loss Psychiatric: Reports: depression, abnormal sleep pattern, suicidal ideation, auditory hallucinations, visual hallucinations Results - Vital Signs Vital Signs: Temp Pulse Resp BP Pulse Ox 98.2 F 104 16 135/83 98 02/24/19 09:00 02/24/19 09:00 02/24/19 09:00 02/24/19 09:00 02/24/19 09:00 - Labs Labs: Laboratory Results - last 24 hr 02/23/19 02/23/19 02/24/19 16:03 21:00 08:07 POC Glucose 119 H 118 H 104 H 02/24/19 11:54 POC Glucose 84 Assessment and Plan (1) Schizoaffective disorder, bipolar type Current visit: No Status: Acute Plan: Continue hospitalization, Close observation, Suicide Precautions per unit protocol, Encourage participation in unit milieu, Group Therapy, Monitor sleep, Monitor appetite Risks, benefits, side effects, alternatives discussed w/pt: Yes Patient agreeable to treatment: Yes Consult Discharge Plan - Plan Referrals: NONE,PCP [Primary Care Provider] - Psychiatry Exam - Constitutional Vitals: Temp Pulse Resp BP Pulse Ox 98.2 F 104 16 135/83 98 02/24/19 09:00 02/24/19 09:00 02/24/19 09:00 02/24/19 09:00 02/24/19 09:00 General appearance: unkempt - Musculoskeletal Gait: normal Station: relaxed Strength & Tone: normal for patient - Psychiatric Patient Orientation: Yes Person, Yes Time, Yes Place Level of alertness: Alert Behavior: calm, cooperative Psychomotor activity: Normal Eye Contact: Maintains Eye Contact Mood Description: Depressed Affect description: full range Speech Volume: Normal Speech pattern: normal rate, normal rhythm, normal tone, fluent, spontaneous Language & Vocabulary: consistent with education Thought Process: Linear, Goal Oriented Thought Content: No Suicidal ideation, No Homicidal ideation, No Overt delusions Perceptual Disturbances: No Auditory hallucinations, No Visual hallucinations Attention Span Ability: Capable of Focused Attention Memory Description: Grossly Intact Patient Reliability: Reliable Historian Fund of knowledge: Yes abstraction ability, Yes aware of current events Intelligence Estimate: Average Judgment: Fair Insight: Partial
[2019-02-24] MEDS: Nicotine 2 MG GUM BC PRN (16:35)
[2019-02-24] MEDS: traZODone 50 MG TABLET PO PRN (20:13)
[2019-02-24] MEDS: Divalproex (24 HR) 500 MG TABLET PO SCH (20:13)
[2019-02-24] MEDS: Loxapine Succinate [Loxapine] 10 MG PO SCH (20:16)
[2019-02-25] MEDS: Insulin LISPRO 300 UNITS/3 ML VIAL SQ SCH ×2 (07:33→11:26)
[2019-02-25] MEDS: *HR* Metformin 500 MG TABLET PO SCH (08:25)
[2019-02-25] MEDS: Finasteride 5 MG TABLET PO SCH (08:26)
[2019-02-25] MEDS: Pregabalin 75 MG CAPSULE PO SCH (08:26)
[2019-02-25] MEDS: Perphenazine 8 MG TABLET PO SCH (08:26)
[2019-02-25] MEDS: Nicotine 2 MG GUM BC PRN (09:04)
[2019-02-25 09:12] VITALS: BP 106/75
--- NOTE | 2019-02-25 12:18 | Discharge Summary ---
Date of Encounter: 02/25/19 Time of Encounter: 12:15 Diagnosis - Discharge Diagnosis (1) Schizoaffective disorder, bipolar type Status: Acute Medications - Discharge Medications Albuterol Sulfate [Proventil Inhaler] 2 puff IH Q4H PRN 02/01/17 [Rx] Divalproex (24 HR) [Depakote ER (24 HR)] 2,000 mg PO HS 03/21/18 [History] Divalproex (24 HR) [Depakote ER (24 HR)] 250 mg PO BID 03/21/18 [History] Loxapine Succinate [Loxapine] 10 mg PO HS 03/21/18 [History] Benztropine Mesylate 0.5 mg PO HS 12/17/18 [History] Budesonide/Formoterol 160/4.5 [Symbicort 160/4.5] 2 puff PO BID 12/17/18 [Hi story] Insulin ASPART [Novolog Flexpen] 0 unit SQ TIDWM 12/17/18 [History] Insulin Degludec/Liraglutide [Xultophy 100 Unit-3.6MG/ml Pen] 0 - 50 unit SQ DAILY 12/17/18 [History] Pregabalin [Lyrica] 150 mg PO BID 12/17/18 [History] Insulin LISPRO [HumaLOG] 10 units SQ TIDWM vial 12/19/18 [Rx] Tamsulosin [Flomax] 0.4 mg PO DAILY capsule 12/19/18 [Rx] traZODone [TraZODone] 50 mg PO HS tablet 12/19/18 [Rx] Lidocaine Patch [Lidoderm 5% patch] 1 each TP DAILY #14 adh..patch 02/15/19 [Rx] Chlorzoxazone 500 mg PO BID 02/21/19 [History] Finasteride [Proscar] 5 mg PO DAILY 02/21/19 [History] Metformin HCl [Metformin HCl ER] 500 mg PO BID 02/21/19 [History] Paliperidone Palmitate [Invega Sustenna] 234 mg IM QMONTH 02/21/19 [History] Perphenazine [Trilafon] 8 mg PO BID 02/21/19 [History] Prazosin HCl [Minipress] 5 mg PO HS 02/21/19 [History] Allergy/AdvReac Type Severity Reaction Status Date / Time No Known Allergies Allergy Verified 02/15/19 19:17 Results Procedures and tests throughout hospitalization: Completed Lab Orders Category Date Time Status Acetaminophen Stat Lab 02/21/19 15:24 Completed Basic Metabolic Panel Stat Lab 02/21/19 15:24 Completed Complete Blood Count [HEME] Stat Lab 02/21/19 15:24 Completed Drug Screen, Urine [UCHEM] Stat Lab 02/21/19 15:32 Completed Ethanol Stat Lab 02/21/19 15:24 Completed Hgb A1C AM 0400 Lab 02/22/19 16:32 Completed Lipid Panel AM 0400 Lab 02/22/19 16:32 Completed Salicylate Stat Lab 02/21/19 15:24 Completed TSH [Thyroid Stimulating Hormone] AM 0400 Lab 02/22/19 16:32 Completed Urinalysis reflex Microscopic [URIN] Stat Lab 02/21/19 15:25 Completed Valproate AM 0400 Lab 02/22/19 16:32 Completed Provider Date of admission: 02/21/19 18:01 Primary care physician: PCP NONE Discharging clinician: Kemi Quintanilla Psychiatry Exam - Constitutional Vitals: Temp Pulse Resp BP Pulse Ox 97.8 F 64 16 106/75 99 02/25/19 09:00 02/25/19 09:00 02/25/19 09:00 02/25/19 09:00 02/25/19 09:00 General appearance: unkempt - Musculoskeletal Gait: normal Station: relaxed Strength & Tone: normal for patient - Psychiatric Patient Orientation: Yes Person, Yes Time, Yes Place Level of alertness: Alert Behavior: calm, cooperative Psychomotor activity: Normal Eye Contact: Maintains Eye Contact Mood Description: Euthymic/stable Affect description: congruent with mood Speech Volume: Normal Speech pattern: normal rate, normal rhythm, normal tone, fluent, spontaneous Language & Vocabulary: consistent with education Thought Process: Linear, Goal Oriented Thought Content: No Suicidal ideation, No Homicidal ideation, No Overt delusions Perceptual Disturbances: No Auditory hallucinations, No Visual hallucinations Attention Span Ability: Capable of Focused Attention Memory Description: Grossly Intact Patient Reliability: Reliable Historian Fund of knowledge: Yes abstraction ability, Yes aware of current events Intelligence Estimate: Average Judgment: Fair Insight: Partial Hospital Course Hospital course: Mr. Menon is a 48 year old male who was admitted for SI. Client is well known to staff here. He has Schizoaffective Disorder with multiple previous admissions. This admission he looked really good. According to staff who are familiar with him he has been discharged from here looking worse than he did when he first presented this time. He is linked with [facility] and receives weekly meds from them. Client was having SI due to being evicted from his residence and being worried about his mother. Client states his mother has dementia and that they live together. He was anxious about his mother being at home without him. Staff put in an APS referral. However, client's mother came to the unit yesterday and appeared to be doing well. This put client's mind at ease. Even though they have been given an eviction notice client states no one has forced them to leave yet. Client wants to return to the residence today with his mother. "She needs me." A referral to [facility] residential placement was made for client and this will remain in effect even if he is discharged. On eval today client is bright, reactive, and future oriented. He has been pleasant and cooperative on the unit. Attending groups. Eating and sleeping well. Mood stable. Denying SI, intent, or plan. Already linked with services. No med changes this admission as he has been stable. Total time spent with client greater than 30 minutes. Patient was educated of his diagnosis and the risks, benefits, and side effects of this treatment and alternative treatment options and was monitored for responsiveness and side effects. Mood, anxiety, sleep, appetite, and interest improved, as did future orientation. Self-harm thoughts subsided, thinking cleared, psychosis resolved, and mood stabilized. Patient was able to attend both individual and group therapy sessions as well as meeting with the psychiatrist daily and urged to discuss any medication or treatment issues or other concerns. The patient was educated primarily by verbal means about their diagnosis and manifestations in their life. The option for treatment including group and individual therapy programming was offered to the patient in the use of medications with all their potential risks, benefits, and side effects were discussed with the patient at length. The patient was given the opportunity to ask questions and was noted to participate in the treatment in the planning pro cess. The patient felt ready and eager to be discharged from the inpatient psychiatric unit to continue on with treatment as an outpatient. The patient agreed that he is safe for this disposition. The patient was considered to be able to participate in informed consent and decision making with respect to medical, legal, and financial issues of the time of discharge. At the time of discharge the patient adamantly denied any concerns for lethality including suicidal or homicidal thoughts ideations or plans and was future oriented toward ongoing mental health care, medical follow-up and sobriety. - Time Spent with Patient Total time spent providing and/or coordinating discharge services: Greater than 30 minutes Assessment and Plan - Patient/Caregiver Discharge Instructions Activity: resume usual activities as tolerated Diet: diabetic diet - Follow up Plan Follow up with: Yvette Kaba [facility] [Outside] - 03/07/19 1:00 pm (You have an appointment scheduled with the nurse, Kamran Ortiz, on Thursday, March 07, 2019 at 1:00 PM. You have an appointment scheduled for Monday, March 25, 2019 at 2:[address] Hannah Salazar for medication management. Please contact the office at least 24 hours in advance if you are unable to keep your appointment(s). ) Christina Jennings, [employer] [Advanced Practice Nurse] - (Please contact the office at the number above and follow up with your primary care provider as needed. Please keep your primary care provider informed of any changes in your medications or medical conditions. ) Functional capacity at discharge: independent ambulation Overall status at discharge: Stable Disposition: Home, Self-Care Quality - Multiple Antipsychotics Patient discharged on 2 or more antipsychotic medications: Yes - Justification Documentation of: History 3 failed trials of monotherapy (invega, sustenna, loxapine) Procedures - Procedures Procedures: Medication Management, Crisis Stabilization, Supportive Therapy, Group Therapy
== END 2019-02-25 13:30 | disposition home or self-care (01) | DRG 885 ==
LOC: EMEROOARM 15:00 → 1ANU 18:01
PROVIDERS: ADMIT Psychiatry & Neurology Psychiatry; ATTEND Psychiatry & Neurology Psychiatry

== ENCOUNTER 2019-08-15 08:10 | Inpatient (IN) ==
[2019-08-15 09:00] LABS: Basophils % 0.3 %; Eosinophils # 0.2 K/mcL (0.0-0.6); Eosinophils % 1.5 %; Hematocrit 50.2 % (37.5-50.1); Hemoglobin 17.2 g/dL (12.9-16.9); Immature Granulocytes % 0.4 % (0-4); Lymphocytes # 3.7 K/mcL (0.6-4.6); Lymphocytes % 36.2 %; Mean Corpuscular HGB Conc 34.3 g/dL (31.6-35.5); Mean Corpuscular Hemoglobin 31.3 pg (28.0-33.3); Mean Corpuscular Volume 91.3 fL (83.0-100.0); Mean Platelet Volume 10.1 fL (9.4-12.4); Monocytes # 0.7 K/mcL (0.0-1.3); Monocytes % 6.6 %; Neutrophils # 5.7 K/mcL (1.6-8.9); Platelet Count 317 K/mcL (140-400); White Blood Count 10.3 K/mcL (4.3-11.1)
[2019-08-15 09:14] LABS: Acetaminophen < 10 mcg/mL (10-20); BUN/Creatinine Ratio 5 (6-26); Blood Urea Nitrogen 5 mg/dL (6-20); Calcium 9.4 mg/dL (8.6-10.3); Carbon Dioxide 22 mEq/L (23-29); Chloride 108 mEq/L (98-107); Ethanol < 10 mg/dL (Less than 10); Glucose 129 mg/dL (70-105); Osmolality,Calculated 287 (280-300); Potassium 3.3 mEq/L (3.5-5.1); Salicylate < 2.5 mg/dL (15.0-30.0); Sodium 139 mEq/L (136-145); Valproate < 4 mcg/mL (50-100); eGFR For African Americans > 60 (> 60); eGFR For Non-African Americans > 60 (> 60)
[2019-08-15 09:14] LABS: Bilirubin,Urine Negative (Negative); Blood,Urine Negative (Negative); Clarity,Urine Clear (Clear); Color,Urine Yellow (Yellow); Glucose,Urine (UA) Normal (Normal); Ketones,Urine Negative (Negative); Leukocyte Esterase,Urine Negative (Negative); Nitrite,Urine Negative (Negative); Protein,Urine Negative (Neg-Trace); Specific Gravity,Urine 1.008 (1.010-1.025); Urobilinogen,Urine Normal (Normal)
[2019-08-15 09:51] LABS: Amphetamine Screen,Urine Negative ng/mL (Cutoff=1000); Barbiturate Screen,Urine Negative ng/mL (Cutoff=200); Benzodiazepines Screen,Urine Negative ng/mL (Cutoff=200); Cannabinoid Screen,Urine Positive ng/mL (Cutoff = 50); Cocaine Screen,Urine Negative ng/mL (Cutoff= 300); Opiate Screen,Urine Negative ng/mL (Cutoff=300); Phencyclidine Screen,Urine Negative ng/mL (Cutoff=25)
[2019-08-15] MEDS ORDERED: *HR* LORazepam 2 MG/ML VIAL IM PRN (10:46)
[2019-08-15] MEDS ORDERED: haloperidoL 5 MG TABLET PO PRN (10:46)
[2019-08-15] MEDS ORDERED: MOM Conc 10 ML UD.LIQ PO PRN (10:46)
[2019-08-15] MEDS ORDERED: Haloperidol Lactate 5 MG/ML VIAL IM PRN (10:46)
[2019-08-15] MEDS ORDERED: Mag Hydrox/Al Hydrox/Simeth 30 ML UDC PO PRN (10:46)
[2019-08-15] MEDS: Pregabalin 50 MG CAPSULE PO SCH (20:57)
[2019-08-15] MEDS: haloperidoL 5 MG TABLET PO SCH (20:57)
[2019-08-15] MEDS: traZODone 50 MG TABLET PO PRN (20:57)
[2019-08-15] MEDS: Acetaminophen 325 MG TABLET PO PRN (20:57)
[2019-08-15] MEDS: *HR* LORazepam 1 MG TABLET PO PRN (20:58)
[2019-08-15] MEDS ORDERED: Divalproex (12 HR) 500 MG TABLET PO SCH (21:00)
[2019-08-15] MEDS: Budesonide/Formoterol 160/4.5 1 PUFF INH IH SCH (22:56)
[2019-08-16] MEDS: haloperidoL 5 MG TABLET PO SCH ×2 (09:07→20:48)
[2019-08-16] MEDS: *HR* Metformin 500 MG TABLET PO SCH ×2 (09:07→16:31)
[2019-08-16] MEDS: Pregabalin 50 MG CAPSULE PO SCH ×2 (09:07→20:48)
[2019-08-16] MEDS: Budesonide/Formoterol 160/4.5 1 PUFF INH IH SCH ×2 (09:56→20:50)
[2019-08-16] MEDS: traZODone 50 MG TABLET PO PRN (20:48)
[2019-08-16] MEDS: Divalproex (12 HR) 500 MG TABLET PO SCH (20:48)
[2019-08-16] MEDS: Acetaminophen 325 MG TABLET PO PRN (20:48)
[2019-08-17] MEDS: haloperidoL 5 MG TABLET PO SCH ×2 (08:29→21:40)
[2019-08-17] MEDS: *HR* Metformin 500 MG TABLET PO SCH ×2 (08:29→17:06)
[2019-08-17] MEDS: Pregabalin 50 MG CAPSULE PO SCH ×2 (08:30→21:39)
[2019-08-17] MEDS: Budesonide/Formoterol 160/4.5 1 PUFF INH IH SCH ×2 (08:56→21:57)
[2019-08-17] MEDS: *HR* LORazepam 1 MG TABLET PO PRN (12:45)
[2019-08-17] MEDS: Divalproex (12 HR) 500 MG TABLET PO SCH (21:40)
[2019-08-18] MEDS ORDERED: hydrOXYzine pamoate 25 MG CAPSULE PO PRN (02:47)
[2019-08-18] MEDS: traZODone 50 MG TABLET PO PRN ×2 (02:53→20:36)
[2019-08-18] MEDS: haloperidoL 5 MG TABLET PO SCH ×2 (09:01→20:36)
[2019-08-18] MEDS: Pregabalin 50 MG CAPSULE PO SCH ×2 (09:01→20:36)
[2019-08-18] MEDS: *HR* Metformin 500 MG TABLET PO SCH ×2 (09:01→17:46)
[2019-08-18] MEDS: Budesonide/Formoterol 160/4.5 1 PUFF INH IH SCH ×2 (09:04→20:39)
[2019-08-18] MEDS ORDERED: INVEGA SUSTENNA 234 MG IM SCH (15:15)
[2019-08-18] MEDS: Divalproex (12 HR) 500 MG TABLET PO SCH (20:36)
[2019-08-19] MEDS: *HR* Metformin 500 MG TABLET PO SCH ×2 (09:08→17:30)
[2019-08-19] MEDS: haloperidoL 5 MG TABLET PO SCH ×2 (09:09→20:46)
[2019-08-19] MEDS: Pregabalin 50 MG CAPSULE PO SCH ×2 (09:09→20:46)
[2019-08-19] MEDS: Budesonide/Formoterol 160/4.5 1 PUFF INH IH SCH ×2 (09:59→20:48)
[2019-08-19] MEDS: Divalproex (12 HR) 500 MG TABLET PO SCH (20:45)
[2019-08-19] MEDS: traZODone 50 MG TABLET PO PRN (20:46)
[2019-08-20] MEDS: haloperidoL 5 MG TABLET PO SCH ×2 (08:32→20:37)
[2019-08-20] MEDS: Pregabalin 50 MG CAPSULE PO SCH ×2 (08:32→20:36)
[2019-08-20] MEDS: *HR* Metformin 500 MG TABLET PO SCH ×2 (08:32→16:22)
[2019-08-20] MEDS: Budesonide/Formoterol 160/4.5 1 PUFF INH IH SCH ×2 (08:33→21:15)
[2019-08-20] MEDS: traZODone 50 MG TABLET PO PRN (20:37)
[2019-08-20] MEDS: Divalproex (12 HR) 500 MG TABLET PO SCH (20:37)
[2019-08-21] MEDS: haloperidoL 5 MG TABLET PO SCH (08:45)
[2019-08-21] MEDS: Pregabalin 50 MG CAPSULE PO SCH (08:46)
[2019-08-21] MEDS: *HR* Metformin 500 MG TABLET PO SCH (08:46)
[2019-08-21 09:13] VITALS: BP 116/85
== END 2019-08-21 11:15 | disposition home or self-care (01) | DRG 885 ==
LOC: EMEROOARM 08:10 → SUATTDRO 10:41 → 1ANU 10:41
PROVIDERS: ADMIT Psychiatry & Neurology Forensic Psychiatry; ATTEND Psychiatry & Neurology Psychiatry

== ENCOUNTER 2019-08-27 21:54 | Inpatient (IN) ==
[2019-08-27 22:27] LABS: Eosinophils % 1.3 %; Hematocrit 48.3 % (37.5-50.1); Lymphocytes % 41.2 %; Segmented Neutrophils % 50.3 %
[2019-08-27 22:28] LABS: Bilirubin,Urine Negative (Negative); Blood,Urine Negative (Negative); Clarity,Urine Clear (Clear); Color,Urine Yellow (Yellow); Glucose,Urine (UA) Normal (Normal); Ketones,Urine Negative (Negative); Leukocyte Esterase,Urine Negative (Negative); Nitrite,Urine Negative (Negative); PH,Urine 6.5 pH Units (5.0-8.0); Protein,Urine Negative (Neg-Trace); Specific Gravity,Urine 1.009 (1.010-1.025); Urobilinogen,Urine Normal (Normal)
[2019-08-27 22:30] LABS: Basophils # 0.1 K/mcL (0.0-0.2); Basophils % 0.4 %; Eosinophils # 0.2 K/mcL (0.0-0.6); Hemoglobin 15.8 g/dL (12.9-16.9); Immature Granulocytes % 0.3 % (0-4); Lymphocytes # 5.3 K/mcL (0.6-4.6); Mean Corpuscular HGB Conc 32.7 g/dL (31.6-35.5); Mean Corpuscular Hemoglobin 30.7 pg (28.0-33.3); Mean Corpuscular Volume 93.8 fL (83.0-100.0); Mean Platelet Volume 10.1 fL (9.4-12.4); Monocytes # 0.8 K/mcL (0.0-1.3); Monocytes % 6.5 %; Neutrophils # 6.4 K/mcL (1.6-8.9); Platelet Count 264 K/mcL (140-400); Red Blood Count 5.15 M/mcL (4.19-5.50); Red Cell Distribution Width 13.4 % (11.5-14.5); White Blood Count 12.8 K/mcL (4.3-11.1)
[2019-08-27 22:37] LABS: Amphetamine Screen,Urine Negative ng/mL (Cutoff=1000); Barbiturate Screen,Urine Negative ng/mL (Cutoff=200); Benzodiazepines Screen,Urine Negative ng/mL (Cutoff=200); Cannabinoid Screen,Urine Negative ng/mL (Cutoff = 50); Cocaine Screen,Urine Negative ng/mL (Cutoff= 300); Opiate Screen,Urine Negative ng/mL (Cutoff=300); Phencyclidine Screen,Urine Negative ng/mL (Cutoff=25)
[2019-08-27 22:47] LABS: Acetaminophen < 10 mcg/mL (10-20); BUN/Creatinine Ratio 9 (6-26); Blood Urea Nitrogen 8 mg/dL (6-20); Calcium 9.4 mg/dL (8.6-10.3); Carbon Dioxide 27 mEq/L (23-29); Chloride 106 mEq/L (98-107); Ethanol < 10 mg/dL (Less than 10); Glucose 96 mg/dL (70-105); Osmolality,Calculated 290 (280-300); Potassium 3.3 mEq/L (3.5-5.1); Salicylate < 2.5 mg/dL (15.0-30.0); Sodium 141 mEq/L (136-145); eGFR For African Americans > 60 (> 60); eGFR For Non-African Americans > 60 (> 60)
[2019-08-27 22:49] LABS: Platelet Estimate Normal (Normal); Reactive Lymphocytes Present (Not Present)
[2019-08-28] MEDS ORDERED: haloperidoL 5 MG TABLET PO PRN (00:15)
[2019-08-28] MEDS ORDERED: Acetaminophen 325 MG TABLET PO PRN (00:15)
[2019-08-28] MEDS ORDERED: Ibuprofen 400 MG TABLET PO PRN (00:15)
[2019-08-28] MEDS ORDERED: *HR* LORazepam 1 MG TABLET PO PRN (00:15)
[2019-08-28] MEDS ORDERED: *HR* LORazepam 2 MG/ML VIAL IM PRN (00:15)
[2019-08-28] MEDS ORDERED: Haloperidol Lactate 5 MG/ML VIAL IM PRN (00:15)
[2019-08-28] MEDS ORDERED: MOM Conc 10 ML UD.LIQ PO PRN (00:15)
[2019-08-28] MEDS: hydrOXYzine pamoate 25 MG CAPSULE PO PRN ×2 (01:18→22:04)
[2019-08-28] MEDS ORDERED: traZODone 50 MG TABLET PO PRN (09:50)
[2019-08-28] MEDS: haloperidoL 5 MG TABLET PO SCH ×2 (10:39→20:42)
[2019-08-28] MEDS: Pregabalin 75 MG CAPSULE PO SCH ×2 (10:40→20:42)
[2019-08-28] MEDS: *HR* Metformin 500 MG TABLET PO SCH (16:41)
[2019-08-28] MEDS ORDERED: Divalproex (12 HR) 500 MG TABLET PO SCH (21:00)
[2019-08-29] MEDS: haloperidoL 5 MG TABLET PO SCH (09:00)
[2019-08-29] MEDS: *HR* Metformin 500 MG TABLET PO SCH (09:00)
[2019-08-29] MEDS: Pregabalin 75 MG CAPSULE PO SCH (09:00)
[2019-08-29 09:04] VITALS: BP 121/86
== END 2019-08-29 10:30 | disposition home or self-care (01) | DRG 885 ==
LOC: EMEROOARM 21:54 → 1ANU 08-28 00:01
PROVIDERS: ADMIT Psychiatry & Neurology Psychiatry; ATTEND Psychiatry & Neurology Psychiatry

== ENCOUNTER 2019-12-03 18:41 | Inpatient (IN) ==
[2019-12-03 20:14] LABS: Basophils % 0.4 %; Eosinophils # 0.2 K/mcL (0.0-0.6); Eosinophils % 1.7 %; Hematocrit 46.2 % (37.5-50.1); Hemoglobin 15.3 g/dL (12.9-16.9); Immature Granulocytes % 0.3 % (0-4); Lymphocytes # 3.6 K/mcL (0.6-4.6); Lymphocytes % 31.8 %; Mean Corpuscular HGB Conc 33.1 g/dL (31.6-35.5); Mean Corpuscular Volume 93.7 fL (83.0-100.0); Monocytes # 0.6 K/mcL (0.0-1.3); Monocytes % 5.5 %; Neutrophils # 6.8 K/mcL (1.6-8.9); Platelet Count 252 K/mcL (140-400); Red Blood Count 4.93 M/mcL (4.19-5.50); Red Cell Distribution Width 13.9 % (11.5-14.5); Segmented Neutrophils % 60.3 %; White Blood Count 11.2 K/mcL (4.3-11.1)
[2019-12-03 20:33] LABS: Acetaminophen < 10 mcg/mL (10-20); BUN/Creatinine Ratio 9 (6-26); Blood Urea Nitrogen 10 mg/dL (6-20); Calcium 8.9 mg/dL (8.6-10.3); Carbon Dioxide 24 mEq/L (23-29); Chloride 109 mEq/L (98-107); Ethanol 10 mg/dL (Less than 10); Glucose 87 mg/dL (70-105); Osmolality,Calculated 290 (280-300); Potassium 3.7 mEq/L (3.5-5.1); Salicylate < 2.5 mg/dL (15.0-30.0); Sodium 141 mEq/L (136-145); eGFR For African Americans > 60 (> 60); eGFR For Non-African Americans > 60 (> 60)
[2019-12-03 20:40] LABS: Bilirubin,Urine Negative (Negative); Blood,Urine Negative (Negative); Clarity,Urine Clear (Clear); Color,Urine Light-Yellow (Yellow); Glucose,Urine (UA) Normal (Normal); Ketones,Urine Trace mg/dL (Negative); Leukocyte Esterase,Urine Negative (Negative); Nitrite,Urine Negative (Negative); PH,Urine 7.5 pH Units (5.0-8.0); Protein,Urine Negative (Neg-Trace); Specific Gravity,Urine 1.011 (1.010-1.025)
[2019-12-03 20:55] LABS: Amphetamine Screen,Urine Negative ng/mL (Cutoff=1000); Barbiturate Screen,Urine Negative ng/mL (Cutoff=200); Benzodiazepines Screen,Urine Negative ng/mL (Cutoff=200); Cannabinoid Screen,Urine Positive ng/mL (Cutoff = 50); Cocaine Screen,Urine Negative ng/mL (Cutoff= 300); Opiate Screen,Urine Negative ng/mL (Cutoff=300); Phencyclidine Screen,Urine Negative ng/mL (Cutoff=25)
[2019-12-03] MEDS ORDERED: MOM Conc 10 ML UD.LIQ PO PRN (23:34)
[2019-12-03] MEDS ORDERED: *HR* LORazepam 2 MG/ML VIAL IM PRN (23:34)
[2019-12-03] MEDS ORDERED: Mag Hydrox/Al Hydrox/Simeth 30 ML UDC PO PRN (23:34)
[2019-12-03] MEDS ORDERED: haloperidoL 5 MG TABLET PO PRN (23:34)
[2019-12-03] MEDS ORDERED: Haloperidol Lactate 5 MG/ML VIAL IM PRN (23:34)
[2019-12-03] MEDS ORDERED: *HR* LORazepam 1 MG TABLET PO PRN (23:34)
[2019-12-04] MEDS: Divalproex (24 HR) 500 MG TABLET PO SCH ×2 (00:34→20:36)
[2019-12-04] MEDS: traZODone 50 MG TABLET PO PRN (00:34)
[2019-12-04] MEDS: hydrOXYzine pamoate 25 MG CAPSULE PO PRN ×2 (00:35→20:36)
[2019-12-04 01:40] LABS: Valproate 63 mcg/mL (50-100)
[2019-12-04] MEDS: Nicotine 2 MG GUM BC PRN ×3 (11:15→20:36)
[2019-12-04] MEDS: *HR* Metformin 500 MG TABLET PO SCH (16:15)
[2019-12-04] MEDS ORDERED: Neosporin OINT 15 GM TUBE TP PRN (18:13)
[2019-12-04] MEDS: Ibuprofen 400 MG TABLET PO PRN (20:36)
[2019-12-04] MEDS: Budesonide/Formoterol 160/4.5 1 PUFF INH IH SCH (22:42)
[2019-12-05] MEDS: *HR* Metformin 500 MG TABLET PO SCH ×2 (09:58→17:16)
[2019-12-05] MEDS: Budesonide/Formoterol 160/4.5 1 PUFF INH IH SCH ×2 (11:09→22:07)
[2019-12-05] MEDS: Nicotine 2 MG GUM BC PRN ×2 (12:53→20:26)
[2019-12-05] MEDS: Ibuprofen 400 MG TABLET PO PRN (17:03)
[2019-12-05] MEDS: traZODone 50 MG TABLET PO PRN (20:26)
[2019-12-05] MEDS: hydrOXYzine pamoate 25 MG CAPSULE PO PRN (20:26)
[2019-12-05] MEDS: Divalproex (24 HR) 500 MG TABLET PO SCH (20:26)
[2019-12-06] MEDS: *HR* Metformin 500 MG TABLET PO SCH (08:29)
[2019-12-06] MEDS: Budesonide/Formoterol 160/4.5 1 PUFF INH IH SCH (08:30)
[2019-12-06 08:52] VITALS: BP 122/78
== END 2019-12-06 10:45 | disposition home or self-care (01) | DRG 885 ==
LOC: 1ANU 18:41 → EMEROOARM 18:41 → 1ANU 12-04 00:05
PROVIDERS: ADMIT Psychiatry & Neurology Psychiatry; ATTEND Psychiatry & Neurology Psychiatry

== ENCOUNTER 2020-01-07 04:26 | Inpatient (IN) ==
[2020-01-07 04:55] LABS: Bilirubin,Urine Negative (Negative); Blood,Urine Negative (Negative); Clarity,Urine Clear (Clear); Color,Urine Yellow (Yellow); Glucose,Urine (UA) Normal (Normal); Ketones,Urine Negative (Negative); Leukocyte Esterase,Urine Negative (Negative); Nitrite,Urine Negative (Negative); Protein,Urine Trace mg/dL (Neg-Trace); Urobilinogen,Urine Normal (Normal)
[2020-01-07 05:01] LABS: Basophils % 0.4 %; Eosinophils # 0.3 K/mcL (0.0-0.6); Eosinophils % 2.5 %; Hematocrit 48.8 % (37.5-50.1); Hemoglobin 16.8 g/dL (12.9-16.9); Immature Granulocytes % 0.4 % (0-4); Lymphocytes # 4.3 K/mcL (0.6-4.6); Lymphocytes % 39.4 %; Mean Corpuscular HGB Conc 34.4 g/dL (31.6-35.5); Mean Corpuscular Hemoglobin 31.2 pg (28.0-33.3); Mean Corpuscular Volume 90.5 fL (83.0-100.0); Mean Platelet Volume 9.6 fL (9.4-12.4); Monocytes # 0.8 K/mcL (0.0-1.3); Monocytes % 7.2 %; Neutrophils # 5.5 K/mcL (1.6-8.9); Platelet Count 251 K/mcL (140-400); Red Blood Count 5.39 M/mcL (4.19-5.50); Red Cell Distribution Width 13.2 % (11.5-14.5); Segmented Neutrophils % 50.1 %; White Blood Count 10.9 K/mcL (4.3-11.1)
[2020-01-07 05:06] LABS: Amphetamine Screen,Urine Negative ng/mL (Cutoff=1000); Barbiturate Screen,Urine Negative ng/mL (Cutoff=200); Benzodiazepines Screen,Urine Negative ng/mL (Cutoff=200); Cannabinoid Screen,Urine Positive ng/mL (Cutoff = 50); Cocaine Screen,Urine Negative ng/mL (Cutoff= 300); Opiate Screen,Urine Negative ng/mL (Cutoff=300); Phencyclidine Screen,Urine Negative ng/mL (Cutoff=25)
[2020-01-07 05:28] LABS: Acetaminophen < 10 mcg/mL (10-20); Alanine Aminotransferase 29 Units/L (7-52); Albumin 4.6 g/dL (3.5-5.7); Albumin/Globulin Ratio 1.8 (1.1-2.2); Alkaline Phosphatase 77 Units/L (34-104); Aspartate Amino Transferase 20 Units/L (13-39); BUN/Creatinine Ratio 10 (6-26); Bilirubin,Direct 0.1 mg/dL (0.0-0.2); Bilirubin,Indirect 0.6 mg/dL (0.0-1.0); Bilirubin,Total 0.7 mg/dL (0.3-1.0); Blood Urea Nitrogen 11 mg/dL (6-20); Calcium 9.9 mg/dL (8.6-10.3); Carbon Dioxide 21 mEq/L (23-29); Chloride 106 mEq/L (98-107); Ethanol < 10 mg/dL (Less than 10); Globulin 2.6 g/dL (2.4-3.5); Glucose 126 mg/dL (70-105); Osmolality,Calculated 285 (280-300); Potassium 3.5 mEq/L (3.5-5.1); Salicylate < 2.5 mg/dL (15.0-30.0); Sodium 137 mEq/L (136-145); Total Protein 7.2 g/dL (6.4-8.9); Troponin I < 0.03 ng/mL (< 0.04); Valproate < 4 mcg/mL (50-100); eGFR For African Americans > 60 (> 60); eGFR For Non-African Americans > 60 (> 60)
[2020-01-07] MEDS ORDERED: haloperidoL 5 MG TABLET PO PRN (09:39)
[2020-01-07] MEDS ORDERED: *HR* LORazepam 2 MG/ML VIAL IM PRN (09:39)
[2020-01-07] MEDS ORDERED: Mag Hydrox/Al Hydrox/Simeth 30 ML UDC PO PRN (09:39)
[2020-01-07] MEDS ORDERED: *HR* LORazepam 1 MG TABLET PO PRN (09:39)
[2020-01-07] MEDS ORDERED: MOM Conc 10 ML UD.LIQ PO PRN (09:39)
[2020-01-07] MEDS ORDERED: Haloperidol Lactate 5 MG/ML VIAL IM PRN (09:39)
[2020-01-07] MEDS: Budesonide/Formoterol 160/4.5 1 PUFF INH IH SCH ×2 (12:42→21:41)
[2020-01-07] MEDS: *HR* Metformin 500 MG TABLET PO SCH (16:50)
[2020-01-07] MEDS ORDERED: (Paliperidone Palmitate [Invega Sustenna] 234 MG) IM SCH (18:00)
[2020-01-07] MEDS: Divalproex (12 HR) 500 MG TABLET PO SCH (21:39)
[2020-01-07] MEDS: traZODone 50 MG TABLET PO PRN (21:39)
[2020-01-07] MEDS: hydrOXYzine pamoate 25 MG CAPSULE PO PRN (21:39)
[2020-01-08] MEDS: *HR* Metformin 500 MG TABLET PO SCH ×2 (09:14→17:20)
[2020-01-08] MEDS: Budesonide/Formoterol 160/4.5 1 PUFF INH IH SCH ×2 (10:00→20:35)
[2020-01-08] MEDS ORDERED: Paliperidone Palmitate [Invega Sustenna] 156 MG IM SCH ×2 (10:30→14:01)
[2020-01-08] MEDS: Nicotine 2 MG GUM BC PRN (14:09)
[2020-01-08 17:39] LABS: Adenovirus Not Detected (Not Detect); Coronavirus 229E Not Detected (Not Detect); Coronavirus HKU1 Not Detected (Not Detect); Coronavirus NL63 Not Detected (Not Detect); Coronavirus OC43 Not Detected (Not Detect)
[2020-01-08 17:40] LABS: Bordetella Pertussis Not Detected (Not Detect); Chlamydophila pneumoniae Not Detected (Not Detect); Human Metapneumovirus Not Detected (Not Detect); Human Rhinovirus/Enterovirus Not Detected (Not Detect); Influenza A Subtype 2009 H1 Not Detected (Not Detect); Influenza B Not Detected (Not Detect); Mycoplasma pneumoniae Not Detected (Not Detect); Parainfluenza Virus 1 Not Detected (Not Detect); Parainfluenza Virus 2 Not Detected (Not Detect); Parainfluenza Virus 3 Not Detected (Not Detect); Parainfluenza Virus 4 Not Detected (Not Detect); Respiratory Syncytial Virus Not Detected (Not Detect)
[2020-01-08] MEDS: hydrOXYzine pamoate 25 MG CAPSULE PO PRN (20:31)
[2020-01-08] MEDS: Divalproex (12 HR) 500 MG TABLET PO SCH (20:31)
[2020-01-08] MEDS: traZODone 50 MG TABLET PO PRN (20:31)
[2020-01-09] MEDS: *HR* Metformin 500 MG TABLET PO SCH ×2 (08:45→16:31)
[2020-01-09] MEDS: Budesonide/Formoterol 160/4.5 1 PUFF INH IH SCH ×2 (08:45→20:42)
[2020-01-09] MEDS: Nicotine 2 MG GUM BC PRN ×2 (12:05→18:02)
[2020-01-09] MEDS: Acetaminophen 325 MG TABLET PO PRN ×2 (14:46→20:44)
[2020-01-09] MEDS: traZODone 50 MG TABLET PO PRN (20:40)
[2020-01-09] MEDS: Divalproex (12 HR) 500 MG TABLET PO SCH (20:40)
[2020-01-09] MEDS: hydrOXYzine pamoate 25 MG CAPSULE PO PRN (20:41)
[2020-01-10] MEDS: traZODone 50 MG TABLET PO PRN ×2 (00:23→20:14)
[2020-01-10] MEDS: *HR* Metformin 500 MG TABLET PO SCH ×2 (09:26→16:01)
[2020-01-10] MEDS: Budesonide/Formoterol 160/4.5 1 PUFF INH IH SCH ×2 (09:33→20:15)
[2020-01-10] MEDS: Nicotine 2 MG GUM BC PRN ×2 (09:57→16:01)
[2020-01-10] MEDS: Acetaminophen 325 MG TABLET PO PRN (18:41)
[2020-01-10] MEDS: hydrOXYzine pamoate 25 MG CAPSULE PO PRN (20:13)
[2020-01-10] MEDS: Divalproex (12 HR) 500 MG TABLET PO SCH (20:14)
[2020-01-11] MEDS: *HR* Metformin 500 MG TABLET PO SCH ×2 (07:48→16:30)
[2020-01-11] MEDS: Budesonide/Formoterol 160/4.5 1 PUFF INH IH SCH ×2 (07:50→21:17)
[2020-01-11] MEDS: Nicotine 2 MG GUM BC PRN ×4 (09:11→22:13)
[2020-01-11] MEDS: traZODone 50 MG TABLET PO PRN (21:15)
[2020-01-11] MEDS: Divalproex (12 HR) 500 MG TABLET PO SCH (21:15)
[2020-01-11] MEDS: Acetaminophen 325 MG TABLET PO PRN (23:59)
[2020-01-12] MEDS: hydrOXYzine pamoate 25 MG CAPSULE PO PRN ×3 (01:32→22:37)
[2020-01-12] MEDS: traZODone 50 MG TABLET PO PRN ×3 (01:33→22:37)
[2020-01-12] MEDS: Budesonide/Formoterol 160/4.5 1 PUFF INH IH SCH ×2 (08:49→20:09)
[2020-01-12] MEDS: *HR* Metformin 500 MG TABLET PO SCH ×2 (08:49→16:32)
[2020-01-12] MEDS: Nicotine 2 MG GUM BC PRN ×2 (12:48→19:37)
[2020-01-12] MEDS: Acetaminophen 325 MG TABLET PO PRN (16:31)
[2020-01-12] MEDS: Divalproex (12 HR) 500 MG TABLET PO SCH (20:09)
[2020-01-13] MEDS: Nicotine 2 MG GUM BC PRN (08:35)
[2020-01-13] MEDS: *HR* Metformin 500 MG TABLET PO SCH (09:02)
[2020-01-13] MEDS: Budesonide/Formoterol 160/4.5 1 PUFF INH IH SCH (09:02)
[2020-01-13 09:08] VITALS: BP 121/87
== END 2020-01-13 10:55 | disposition home or self-care (01) | DRG 885 ==
LOC: EMEROOARM 04:26 → 1ANU 09:35
PROVIDERS: ADMIT Psychiatry & Neurology Psychiatry; ATTEND Psychiatry & Neurology Psychiatry

== ENCOUNTER 2020-05-14 10:27 | Inpatient (IN) ==
[2020-05-14 11:14] LABS: Basophils # 0.1 K/mcL (0.0-0.2); Basophils % 0.4 %; Eosinophils % 0.2 %; Hematocrit 52.5 % (37.5-50.1); Immature Granulocytes % 0.3 % (0-4); Lymphocytes # 2.5 K/mcL (0.6-4.6); Lymphocytes % 21.9 %; Mean Corpuscular HGB Conc 34.3 g/dL (31.6-35.5); Mean Corpuscular Hemoglobin 31.7 pg (28.0-33.3); Mean Corpuscular Volume 92.6 fL (83.0-100.0); Mean Platelet Volume 10.8 fL (9.4-12.4); Monocytes # 0.7 K/mcL (0.0-1.3); Monocytes % 6.3 %; Neutrophils # 8.2 K/mcL (1.6-8.9); Platelet Count 297 K/mcL (140-400); Red Blood Count 5.67 M/mcL (4.19-5.50); Red Cell Distribution Width 13.1 % (11.5-14.5); Segmented Neutrophils % 70.9 %; White Blood Count 11.5 K/mcL (4.3-11.1)
[2020-05-14 11:26] LABS: Acetaminophen < 10 mcg/mL (10-20); BUN/Creatinine Ratio 7 (6-26); Blood Urea Nitrogen 8 mg/dL (6-20); Calcium 10.5 mg/dL (8.6-10.3); Carbon Dioxide 20 mEq/L (23-29); Chloride 104 mEq/L (98-107); Chol/HDL Ratio 3.7 (0-4.9); Cholesterol 162 mg/dL (< 200); Ethanol < 10 mg/dL (Less than 10); Glucose 164 mg/dL (70-105); HDL Cholesterol 44 mg/dL (40-59); LDL Cholesterol,Calculated 101 mg/dL (< 100); Osmolality,Calculated 286 (280-300); Potassium 3.8 mEq/L (3.5-5.1); Salicylate < 2.5 mg/dL (15.0-30.0); Sodium 137 mEq/L (136-145); Triglycerides 86 mg/dL (< 150); eGFR For African Americans > 60 (> 60); eGFR For Non-African Americans > 60 (> 60)
[2020-05-14 11:39] LABS: Bilirubin,Urine Negative (Negative); Blood,Urine Negative (Negative); Clarity,Urine Ex.Turbid (Clear); Color,Urine Yellow (Yellow); Glucose,Urine (UA) Normal (Normal); Ketones,Urine 10 mg/dL (Negative); Leukocyte Esterase,Urine Negative (Negative); Nitrite,Urine Negative (Negative); Protein,Urine 50 mg/dL (Neg-Trace); Specific Gravity,Urine 1.022 (1.010-1.025)
[2020-05-14 11:40] LABS: Amorphous Sediment,Urine Present per hpf (None-Few); Bacteria,Urine Present per hpf (None-Few)
[2020-05-14 11:42] LABS: WBC,Urine Present per hpf (0-3)
[2020-05-14 11:43] LABS: Mucus,Urine Present per lpf (None-Few)
[2020-05-14 11:59] LABS: Amphetamine Screen,Urine Negative ng/mL (Cutoff=1000); Barbiturate Screen,Urine Negative ng/mL (Cutoff=200); Benzodiazepines Screen,Urine Negative ng/mL (Cutoff=200); Cannabinoid Screen,Urine Positive ng/mL (Cutoff = 50); Cocaine Screen,Urine Negative ng/mL (Cutoff= 300); Opiate Screen,Urine Negative ng/mL (Cutoff=300); Phencyclidine Screen,Urine Negative ng/mL (Cutoff=25)
[2020-05-14 12:08] LABS: Estimated Average Glucose 137 mg/dl; Hemoglobin A1C 6.4 %
[2020-05-14] MEDS ORDERED: *HR* LORazepam 2 MG/ML VIAL IM PRN (14:43)
[2020-05-14] MEDS ORDERED: haloperidoL 5 MG TABLET PO PRN (14:43)
[2020-05-14] MEDS ORDERED: QUEtiapine Fumarate 25 MG TABLET PO PRN (14:43)
[2020-05-14] MEDS ORDERED: MOM Conc 10 ML UD.LIQ PO PRN (14:43)
[2020-05-14] MEDS ORDERED: Haloperidol Lactate 5 MG/ML VIAL IM PRN (14:43)
[2020-05-14] MEDS ORDERED: hydrOXYzine pamoate 25 MG CAPSULE PO PRN (14:43)
[2020-05-14] MEDS ORDERED: *HR* LORazepam 1 MG TABLET PO PRN (14:43)
[2020-05-14] MEDS ORDERED: Mag Hydrox/Al Hydrox/Simeth 30 ML UDC PO PRN (14:43)
[2020-05-14] MEDS: *HR* Metformin 500 MG TABLET PO SCH (17:26)
[2020-05-14] MEDS: Divalproex (12 HR) 500 MG TABLET PO SCH (20:37)
[2020-05-15] MEDS: *HR* Metformin 500 MG TABLET PO SCH ×2 (08:20→16:55)
[2020-05-15] MEDS: Acetaminophen 325 MG TABLET PO PRN (17:53)
[2020-05-15] MEDS: Divalproex (12 HR) 500 MG TABLET PO SCH (20:06)
[2020-05-16] MEDS: *HR* Metformin 500 MG TABLET PO SCH ×2 (09:08→17:35)
[2020-05-16] MEDS ORDERED: Nicotine 2 MG GUM BC PRN (18:37)
[2020-05-16] MEDS: Divalproex (12 HR) 500 MG TABLET PO SCH (20:09)
[2020-05-16] MEDS: Acetaminophen 325 MG TABLET PO PRN (20:10)
[2020-05-17] MEDS: *HR* Metformin 500 MG TABLET PO SCH (09:00)
[2020-05-17 09:59] VITALS: BP 143/92
[2020-05-17] MEDS: Acetaminophen 325 MG TABLET PO PRN (13:02)
[2020-05-17] MEDS: PALIPERIDONE PALMITATE 234 MG/1.5 ML IM SCH ×2 (14:50→15:05)
[2020-05-17] MEDS ORDERED: PALIPERIDONE PALMITATE 234 MG/1.5 ML IM SCH (15:00)
== END 2020-05-17 15:20 | disposition home or self-care (01) | DRG 885 ==
LOC: EMEROOARM 10:27 → 1ANU 14:41
PROVIDERS: ADMIT Psychiatry & Neurology Psychiatry; ATTEND Psychiatry & Neurology Psychiatry

== ENCOUNTER 2020-07-28 20:29 | Inpatient (IN) ==
[2020-07-28 21:11] LABS: Basophils # 0.1 K/mcL (0.0-0.2); Basophils % 0.4 %; Eosinophils # 0.1 K/mcL (0.0-0.6); Eosinophils % 0.8 %; Hematocrit 46.6 % (37.5-50.1); Immature Granulocytes % 0.4 % (0-4); Lymphocytes % 44.1 %; Mean Corpuscular HGB Conc 34.3 g/dL (31.6-35.5); Mean Corpuscular Hemoglobin 31.7 pg (28.0-33.3); Mean Corpuscular Volume 92.5 fL (83.0-100.0); Mean Platelet Volume 10.4 fL (9.4-12.4); Monocytes # 1.3 K/mcL (0.0-1.3); Monocytes % 9.3 %; Neutrophils # 6.1 K/mcL (1.6-8.9); Platelet Count 270 K/mcL (140-400); Red Blood Count 5.04 M/mcL (4.19-5.50); White Blood Count 13.6 K/mcL (4.3-11.1)
[2020-07-28 21:14] LABS: Bacteria,Urine Few per hpf (None-Few); Bilirubin,Urine Negative (Negative); Blood,Urine Negative (Negative); Clarity,Urine Clear (Clear); Color,Urine Yellow (Yellow); Glucose,Urine (UA) Normal (Normal); Ketones,Urine Negative (Negative); Leukocyte Esterase,Urine Small (Negative); Mucus,Urine Few per lpf (None-Few); Nitrite,Urine Negative (Negative); PH,Urine 6.5 pH Units (5.0-8.0); Protein,Urine Trace mg/dL (Neg-Trace); RBC,Urine 0-3 per hpf (0-3); Specific Gravity,Urine 1.016 (1.010-1.025); Squamous Epithelial Cell,Urine Few per hpf (None-Few); Urobilinogen,Urine Normal (Normal); WBC,Urine 0-3 per hpf (0-3)
[2020-07-28 21:17] LABS: Estimated Average Glucose 137 mg/dl; Hemoglobin A1C 6.4 %
[2020-07-28 21:29] LABS: Reactive Lymphocytes Present (Not Present); Smudge Cells Present (Not Present)
[2020-07-28 21:32] LABS: Acetaminophen < 10 mcg/mL (10-20); BUN/Creatinine Ratio 10 (6-26); Blood Urea Nitrogen 11 mg/dL (6-20); Calcium 9.4 mg/dL (8.6-10.3); Carbon Dioxide 20 mEq/L (23-29); Chloride 105 mEq/L (98-107); Chol/HDL Ratio 4.8 (0-4.9); Cholesterol 160 mg/dL (< 200); Ethanol < 10 mg/dL (Less than 10); Glucose 104 mg/dL (70-105); HDL Cholesterol 33 mg/dL (40-59); LDL Cholesterol,Calculated 98 mg/dL (< 100); Osmolality,Calculated 284 (280-300); Potassium 3.3 mEq/L (3.5-5.1); Salicylate < 2.5 mg/dL (15.0-30.0); Sodium 137 mEq/L (136-145); Triglycerides 144 mg/dL (< 150); eGFR For African Americans > 60 (> 60); eGFR For Non-African Americans > 60 (> 60)
[2020-07-28 21:56] LABS: Amphetamine Screen,Urine Negative ng/mL (Cutoff=1000); Barbiturate Screen,Urine Negative ng/mL (Cutoff=200); Benzodiazepines Screen,Urine Negative ng/mL (Cutoff=200); Cannabinoid Screen,Urine Positive ng/mL (Cutoff = 50); Cocaine Screen,Urine Negative ng/mL (Cutoff= 300); Opiate Screen,Urine Negative ng/mL (Cutoff=300); Phencyclidine Screen,Urine Negative ng/mL (Cutoff=25)
[2020-07-29] MEDS ORDERED: *HR* LORazepam 2 MG/ML VIAL IM PRN (01:10)
[2020-07-29] MEDS ORDERED: MOM Conc 10 ML UD.LIQ PO PRN (01:10)
[2020-07-29] MEDS ORDERED: Haloperidol Lactate 5 MG/ML VIAL IM PRN (01:10)
[2020-07-29] MEDS: hydrOXYzine pamoate 25 MG CAPSULE PO PRN (01:56)
[2020-07-29] MEDS: QUEtiapine Fumarate 25 MG TABLET PO PRN (01:56)
[2020-07-29] MEDS: *HR* LORazepam 1 MG TABLET PO PRN ×2 (08:08→21:05)
[2020-07-29] MEDS: haloperidoL 5 MG TABLET PO PRN ×2 (08:09→21:06)
[2020-07-29] MEDS: Nicotine 2 MG GUM BC PRN (09:10)
[2020-07-29] MEDS: *HR* Metformin 500 MG TABLET PO SCH (18:04)
[2020-07-29] MEDS: Divalproex (24 HR) 500 MG TABLET PO SCH (20:20)
[2020-07-29] MEDS: Budesonide/Formoterol 160/4.5 1 PUFF INH IH SCH (20:20)
[2020-07-30] MEDS: *HR* Metformin 500 MG TABLET PO SCH ×2 (09:49→16:38)
[2020-07-30] MEDS: haloperidoL 5 MG TABLET PO PRN (09:50)
[2020-07-30] MEDS: *HR* LORazepam 1 MG TABLET PO PRN (09:51)
[2020-07-30] MEDS: Budesonide/Formoterol 160/4.5 1 PUFF INH IH SCH ×2 (09:51→20:17)
[2020-07-30] MEDS: Acetaminophen 325 MG TABLET PO PRN (10:49)
[2020-07-30] MEDS: Nicotine 2 MG GUM BC PRN ×2 (16:39→20:15)
[2020-07-30] MEDS: Divalproex (24 HR) 500 MG TABLET PO SCH (20:15)
[2020-07-31] MEDS: hydrOXYzine pamoate 25 MG CAPSULE PO PRN (03:53)
[2020-07-31] MEDS: Acetaminophen 325 MG TABLET PO PRN (03:53)
[2020-07-31] MEDS: *HR* LORazepam 1 MG TABLET PO PRN ×2 (07:25→19:52)
[2020-07-31] MEDS: haloperidoL 5 MG TABLET PO PRN ×2 (07:25→19:52)
[2020-07-31] MEDS: Budesonide/Formoterol 160/4.5 1 PUFF INH IH SCH ×2 (08:20→20:01)
[2020-07-31] MEDS: *HR* Metformin 500 MG TABLET PO SCH ×2 (08:21→17:05)
[2020-07-31] MEDS: Mag Hydrox/Al Hydrox/Simeth 30 ML UDC PO PRN (17:19)
[2020-07-31] MEDS: Nicotine 2 MG GUM BC PRN (17:20)
[2020-07-31] MEDS: Divalproex (24 HR) 500 MG TABLET PO SCH (19:52)
[2020-08-01] MEDS: Acetaminophen 325 MG TABLET PO PRN (04:30)
[2020-08-01] MEDS: hydrOXYzine pamoate 25 MG CAPSULE PO PRN ×2 (04:31→20:32)
[2020-08-01] MEDS: *HR* Metformin 500 MG TABLET PO SCH ×2 (08:27→16:55)
[2020-08-01] MEDS ORDERED: PALIPERIDONE PALMITATE 234 MG/1.5 ML SYRINGE IM SCH (09:00)
[2020-08-01] MEDS: Budesonide/Formoterol 160/4.5 1 PUFF INH IH SCH ×2 (09:54→20:44)
[2020-08-01] MEDS: Nicotine 2 MG GUM BC PRN (17:31)
[2020-08-01] MEDS: Divalproex (24 HR) 500 MG TABLET PO SCH (20:33)
[2020-08-01] MEDS: QUEtiapine Fumarate 25 MG TABLET PO PRN (20:33)
[2020-08-01] MEDS: Preparation H Ointment 57 GM TUBE TP SCH (20:44)
[2020-08-02] MEDS: *HR* Metformin 500 MG TABLET PO SCH ×2 (09:55→17:19)
[2020-08-02] MEDS: Budesonide/Formoterol 160/4.5 1 PUFF INH IH SCH ×2 (09:56→21:32)
[2020-08-02] MEDS: Preparation H Ointment 57 GM TUBE TP SCH ×2 (09:58→21:06)
[2020-08-02] MEDS: QUEtiapine Fumarate 25 MG TABLET PO PRN (20:19)
[2020-08-02] MEDS: hydrOXYzine pamoate 25 MG CAPSULE PO PRN (20:19)
[2020-08-02] MEDS: Divalproex (24 HR) 500 MG TABLET PO SCH (20:19)
[2020-08-03] MEDS: QUEtiapine Fumarate 25 MG TABLET PO PRN ×3 (03:13→21:22)
[2020-08-03] MEDS: hydrOXYzine pamoate 25 MG CAPSULE PO PRN ×2 (03:13→20:08)
[2020-08-03] MEDS: *HR* Metformin 500 MG TABLET PO SCH ×2 (09:21→18:17)
[2020-08-03] MEDS: Budesonide/Formoterol 160/4.5 1 PUFF INH IH SCH ×2 (09:25→20:31)
[2020-08-03] MEDS: Preparation H Ointment 57 GM TUBE TP SCH ×2 (09:27→20:30)
[2020-08-03] MEDS: Acetaminophen 325 MG TABLET PO PRN (20:08)
[2020-08-03] MEDS: Divalproex (24 HR) 500 MG TABLET PO SCH (20:08)
[2020-08-03] MEDS: *HR* LORazepam 1 MG TABLET PO PRN (23:25)
[2020-08-03] MEDS: haloperidoL 5 MG TABLET PO PRN (23:25)
[2020-08-03] MEDS: Mag Hydrox/Al Hydrox/Simeth 30 ML UDC PO PRN (23:29)
[2020-08-04] MEDS: Acetaminophen 325 MG TABLET PO PRN ×2 (05:07→12:53)
[2020-08-04] MEDS: Budesonide/Formoterol 160/4.5 1 PUFF INH IH SCH ×2 (09:36→20:02)
[2020-08-04] MEDS: Preparation H Ointment 57 GM TUBE TP SCH ×2 (09:36→20:02)
[2020-08-04] MEDS: *HR* Metformin 500 MG TABLET PO SCH ×2 (09:36→16:29)
[2020-08-04] MEDS: Mag Hydrox/Al Hydrox/Simeth 30 ML UDC PO PRN (16:29)
[2020-08-04] MEDS: hydrOXYzine pamoate 25 MG CAPSULE PO PRN (20:00)
[2020-08-04] MEDS: Divalproex (24 HR) 500 MG TABLET PO SCH (20:00)
[2020-08-04] MEDS ORDERED: QUEtiapine Fumarate 100 MG TABLET PO SCH (21:00)
[2020-08-05] MEDS: hydrOXYzine pamoate 25 MG CAPSULE PO PRN (03:00)
[2020-08-05] MEDS: QUEtiapine Fumarate 25 MG TABLET PO PRN (03:00)
[2020-08-05] MEDS: *HR* Metformin 500 MG TABLET PO SCH ×2 (08:38→17:20)
[2020-08-05] MEDS ORDERED: PALIPERIDONE PALMITATE 156 MG/ML SYRINGE IM SCH (09:00)
[2020-08-05] MEDS: Nicotine 2 MG GUM BC PRN (09:39)
[2020-08-05] MEDS: Preparation H Ointment 57 GM TUBE TP SCH ×2 (09:59→21:25)
[2020-08-05] MEDS: Budesonide/Formoterol 160/4.5 1 PUFF INH IH SCH ×2 (09:59→21:23)
[2020-08-05] MEDS ORDERED: QUEtiapine Fumarate 300 MG TABLET PO SCH (21:00)
[2020-08-05] MEDS: Divalproex (24 HR) 500 MG TABLET PO SCH (21:21)
[2020-08-06 03:40] LABS: Valproate Free 10 ug/mL (7-23); Valproate Total 78 ug/mL (50-125)
[2020-08-06] MEDS: *HR* Metformin 500 MG TABLET PO SCH (08:23)
[2020-08-06] MEDS: Preparation H Ointment 57 GM TUBE TP SCH (08:24)
[2020-08-06] MEDS: Budesonide/Formoterol 160/4.5 1 PUFF INH IH SCH (08:24)
[2020-08-06 10:06] VITALS: BP 111/76
[2020-08-06 11:09] LABS: Valproate % Free 13 % (5-18)
== END 2020-08-06 11:25 | disposition home or self-care (01) | DRG 885 ==
LOC: EMEROOARM 20:29 → 1ANU 07-29 01:00
PROVIDERS: ADMIT Psychiatry & Neurology Psychiatry; ATTEND Psychiatry & Neurology Psychiatry

== ENCOUNTER 2020-09-22 07:35 | Observation (INO) ==
[2020-09-22 08:53] LABS: Bilirubin,Urine Negative (Negative); Blood,Urine Negative (Negative); Clarity,Urine Clear (Clear); Color,Urine Yellow (Yellow); Glucose,Urine (UA) Normal (Normal); Ketones,Urine 10 mg/dL (Negative); Leukocyte Esterase,Urine Negative (Negative); Mucus,Urine Few per lpf (None-Few); Nitrite,Urine Negative (Negative); PH,Urine 6.5 pH Units (5.0-8.0); Protein,Urine 30 mg/dL (Neg-Trace); RBC,Urine 0-3 per hpf (0-3); Specific Gravity,Urine 1.025 (1.010-1.025); Squamous Epithelial Cell,Urine Few per hpf (None-Few)
[2020-09-22 08:54] LABS: Basophils # 0.1 K/mcL (0.0-0.2); Basophils % 0.4 %; Eosinophils # 0.1 K/mcL (0.0-0.6); Hematocrit 49.5 % (37.5-50.1); Hemoglobin 16.9 g/dL (12.9-16.9); Immature Granulocytes % 0.4 % (0-4); Lymphocytes # 3.9 K/mcL (0.6-4.6); Lymphocytes % 32.5 %; Mean Corpuscular HGB Conc 34.1 g/dL (31.6-35.5); Mean Corpuscular Hemoglobin 32.1 pg (28.0-33.3); Mean Corpuscular Volume 94.1 fL (83.0-100.0); Mean Platelet Volume 10.4 fL (9.4-12.4); Monocytes % 8.4 %; Neutrophils # 6.8 K/mcL (1.6-8.9); Platelet Count 245 K/mcL (140-400); Red Blood Count 5.26 M/mcL (4.19-5.50); Red Cell Distribution Width 12.6 % (11.5-14.5); Segmented Neutrophils % 57.3 %; White Blood Count 11.9 K/mcL (4.3-11.1)
[2020-09-22 09:13] LABS: Acetaminophen < 10 mcg/mL (10-20); BUN/Creatinine Ratio 8 (6-26); Blood Urea Nitrogen 9 mg/dL (6-20); Calcium 9.6 mg/dL (8.6-10.3); Carbon Dioxide 21 mEq/L (23-29); Chloride 104 mEq/L (98-107); Chol/HDL Ratio 5.8 (0-4.9); Cholesterol 180 mg/dL (< 200); Ethanol < 10 mg/dL (Less than 10); Glucose 143 mg/dL (70-105); HDL Cholesterol 31 mg/dL (40-59); LDL Cholesterol,Calculated 118 mg/dL (< 100); Osmolality,Calculated 285 (280-300); Salicylate < 2.5 mg/dL (15.0-30.0); Sodium 137 mEq/L (136-145); Triglycerides 157 mg/dL (< 150); eGFR For African Americans > 60 (> 60); eGFR For Non-African Americans > 60 (> 60)
[2020-09-22 09:21] LABS: Amphetamine Screen,Urine Negative ng/mL (Cutoff=1000); Barbiturate Screen,Urine Negative ng/mL (Cutoff=200); Benzodiazepines Screen,Urine Negative ng/mL (Cutoff=200); Cannabinoid Screen,Urine Positive ng/mL (Cutoff = 50); Cocaine Screen,Urine Negative ng/mL (Cutoff= 300); Opiate Screen,Urine Negative ng/mL (Cutoff=300); Phencyclidine Screen,Urine Negative ng/mL (Cutoff=25)
[2020-09-22] MEDS ORDERED: 0.9 % Sodium Chloride 1,000 ML IV ONE (12:01)
[2020-09-22] MEDS ORDERED: Naloxone 0.4 MG/ML INJ IVP PRN (12:53)
[2020-09-22] MEDS: 0.9 % Sodium Chloride 1,000 ML IVC SCH ×2 (14:08→21:46)
[2020-09-22] MEDS ORDERED: Haloperidol Lactate 5 MG/ML VIAL IM PRN (14:22)
[2020-09-22] MEDS ORDERED: Dextrose Gel 15 GM/37.5 ML TUBE PO PRN ×2 (14:56)
[2020-09-22] MEDS ORDERED: *HR* Dextrose 50 % in Water (Vial) 50 ML VIAL IVP PRN (14:56)
[2020-09-22] MEDS ORDERED: D5% in Water 1,000 ML IVC PRN (14:56)
[2020-09-22] MEDS: *HR* Heparin 5,000 UNIT/ML VIAL SQ SCH (15:40)
[2020-09-22] MEDS: Insulin LISPRO 300 UNITS/3 ML VIAL SUBQ SCH (15:40)
[2020-09-22] MEDS ORDERED: Ipratropium/Albuterol Neb 3 ML IH PRN (15:53)
[2020-09-22] MEDS ORDERED: Insulin LISPRO 300 UNITS/3 ML VIAL SUBQ SCH (21:00)
[2020-09-23 04:32] LABS: Basophils % 0.4 %; Eosinophils # 0.1 K/mcL (0.0-0.6); Eosinophils % 1.1 %; Hematocrit 46.1 % (37.5-50.1); Immature Granulocytes % 0.6 % (0-4); Lymphocytes # 4.9 K/mcL (0.6-4.6); Lymphocytes % 47.3 %; Mean Corpuscular HGB Conc 33.2 g/dL (31.6-35.5); Mean Corpuscular Hemoglobin 31.9 pg (28.0-33.3); Mean Platelet Volume 10.6 fL (9.4-12.4); Monocytes # 0.6 K/mcL (0.0-1.3); Monocytes % 5.8 %; Neutrophils # 4.7 K/mcL (1.6-8.9); Platelet Count 230 K/mcL (140-400); Red Cell Distribution Width 12.7 % (11.5-14.5); Segmented Neutrophils % 44.8 %; White Blood Count 10.4 K/mcL (4.3-11.1)
[2020-09-23 04:42] LABS: Hemoglobin 15.3 g/dL (12.9-16.9)
[2020-09-23 04:49] LABS: BUN/Creatinine Ratio 12 (6-26); Blood Urea Nitrogen 13 mg/dL (6-20); Calcium 8.5 mg/dL (8.6-10.3); Carbon Dioxide 24 mEq/L (23-29); Chloride 109 mEq/L (98-107); Glucose 94 mg/dL (70-105); Magnesium 1.9 mg/dL (1.6-2.6); Osmolality,Calculated 290 (280-300); Phosphorous 3.6 mg/dL (2.7-4.5); Potassium 3.9 mEq/L (3.5-5.1); Sodium 140 mEq/L (136-145); eGFR For African Americans > 60 (> 60); eGFR For Non-African Americans > 60 (> 60)
[2020-09-23] MEDS: *HR* Heparin 5,000 UNIT/ML VIAL SQ SCH (06:28)
[2020-09-23] MEDS: Insulin LISPRO 300 UNITS/3 ML VIAL SUBQ SCH ×3 (07:38→16:30)
[2020-09-23] MEDS ORDERED: Budesonide/Formoterol 160/4.5 1 PUFF INH IH SCH (10:00)
[2020-09-23] MEDS: 0.9 % Sodium Chloride 1,000 ML IVC SCH (10:28)
[2020-09-23 15:18] LABS: Adenovirus Not Detected (Not Detect); Bordetella Pertussis Not Detected (Not Detect); Chlamydophila pneumoniae Not Detected (Not Detect); Coronavirus 229E Not Detected (Not Detect); Coronavirus HKU1 Not Detected (Not Detect); Coronavirus NL63 Not Detected (Not Detect); Coronavirus OC43 Not Detected (Not Detect); Human Metapneumovirus Not Detected (Not Detect); Human Rhinovirus/Enterovirus Not Detected (Not Detect); Influenza A Subtype 2009 H1 Not Detected (Not Detect); Influenza B Not Detected (Not Detect); Mycoplasma pneumoniae Not Detected (Not Detect); Parainfluenza Virus 1 Not Detected (Not Detect); Parainfluenza Virus 2 Not Detected (Not Detect); Parainfluenza Virus 3 Not Detected (Not Detect); Parainfluenza Virus 4 Not Detected (Not Detect); Respiratory Syncytial Virus Not Detected (Not Detect); SARS-CoV-2 Not Detected (Not Detect)
[2020-09-23 17:19] VITALS: BP 166/97
== END 2020-09-23 17:27 ==
LOC: EMEROOARM 07:35 → 3BNU 07:35 → SUATTDRO 13:02 → 3BNU 13:32
PROVIDERS: ADMIT Internal Medicine; ATTEND Internal Medicine

== ENCOUNTER 2020-09-23 17:25 | Inpatient (IN) ==
[2020-09-23] MEDS ORDERED: QUEtiapine Fumarate 25 MG TABLET PO PRN (17:32)
[2020-09-23] MEDS ORDERED: *HR* LORazepam 2 MG/ML VIAL IM PRN (17:32)
[2020-09-23] MEDS ORDERED: Haloperidol Lactate 5 MG/ML VIAL IM PRN (17:32)
[2020-09-23] MEDS: *HR* LORazepam 1 MG TABLET PO PRN (18:05)
[2020-09-23] MEDS: haloperidoL 5 MG TABLET PO PRN (18:05)
[2020-09-23] MEDS: Acetaminophen 325 MG TABLET PO PRN (18:05)
[2020-09-23] MEDS: QUEtiapine Fumarate 300 MG TABLET PO SCH (20:10)
[2020-09-23] MEDS ORDERED: MOM Conc 10 ML UD.LIQ PO PRN (21:23)
[2020-09-23] MEDS ORDERED: Mag Hydrox/Al Hydrox/Simeth 30 ML UDC PO PRN (21:23)
[2020-09-23] MEDS: Budesonide/Formoterol 160/4.5 1 PUFF INH IH SCH (22:23)
[2020-09-24] MEDS ORDERED: PALIPERIDONE PALMITATE 234 MG/1.5 ML SYRINGE IM SCH (09:15)
[2020-09-24] MEDS: *HR* LORazepam 1 MG TABLET PO PRN (09:51)
[2020-09-24] MEDS: haloperidoL 5 MG TABLET PO PRN (09:52)
[2020-09-24] MEDS: Budesonide/Formoterol 160/4.5 1 PUFF INH IH SCH ×2 (10:02→20:24)
[2020-09-24] MEDS: QUEtiapine Fumarate 300 MG TABLET PO SCH (20:23)
[2020-09-25] MEDS: Budesonide/Formoterol 160/4.5 1 PUFF INH IH SCH ×2 (11:45→20:05)
[2020-09-25] MEDS: hydrOXYzine pamoate 25 MG CAPSULE PO PRN (13:18)
[2020-09-25] MEDS: *HR* LORazepam 1 MG TABLET PO PRN (13:23)
[2020-09-25] MEDS: haloperidoL 5 MG TABLET PO PRN (13:23)
[2020-09-25] MEDS ORDERED: Nicotine 2 MG GUM BC SCH (14:00)
[2020-09-25] MEDS: QUEtiapine Fumarate 300 MG TABLET PO SCH (20:05)
[2020-09-25] MEDS: Nicotine 2 MG GUM BC PRN (20:37)
[2020-09-26] MEDS: haloperidoL 5 MG TABLET PO PRN (08:51)
[2020-09-26] MEDS: Nicotine 2 MG GUM BC PRN ×2 (08:51→17:56)
[2020-09-26] MEDS: *HR* LORazepam 1 MG TABLET PO PRN (08:51)
[2020-09-26] MEDS: Budesonide/Formoterol 160/4.5 1 PUFF INH IH SCH ×2 (11:28→20:36)
[2020-09-26] MEDS: Divalproex (24 HR) 500 MG TABLET PO SCH (20:32)
[2020-09-26] MEDS: QUEtiapine Fumarate 100 MG TABLET PO SCH (20:32)
[2020-09-26] MEDS: hydrOXYzine pamoate 25 MG CAPSULE PO PRN (20:32)
[2020-09-27] MEDS: Budesonide/Formoterol 160/4.5 1 PUFF INH IH SCH ×2 (10:28→20:59)
[2020-09-27] MEDS ORDERED: [UNRECOGNIZED DRUG - OTHER] IM SCH (11:45)
[2020-09-27] MEDS ORDERED: PALIPERIDONE PALMITATE 156 MG/ML IM SCH (11:45)
[2020-09-27] MEDS: Acetaminophen 325 MG TABLET PO PRN (18:15)
[2020-09-27] MEDS: Divalproex (24 HR) 500 MG TABLET PO SCH (20:16)
[2020-09-27] MEDS: QUEtiapine Fumarate 100 MG TABLET PO SCH (20:16)
[2020-09-27] MEDS ORDERED: Divalproex (12 HR) 500 MG TABLET PO SCH (21:00)
[2020-09-28] MEDS: Budesonide/Formoterol 160/4.5 1 PUFF INH IH SCH ×2 (09:29→19:59)
[2020-09-28] MEDS: Acetaminophen 325 MG TABLET PO PRN (15:56)
[2020-09-28] MEDS: Nicotine 2 MG GUM BC PRN (18:40)
[2020-09-28] MEDS: hydrOXYzine pamoate 25 MG CAPSULE PO PRN (19:56)
[2020-09-28] MEDS: QUEtiapine Fumarate 100 MG TABLET PO SCH (19:57)
[2020-09-28] MEDS: Divalproex (24 HR) 500 MG TABLET PO SCH (19:57)
[2020-09-29] MEDS: hydrOXYzine pamoate 25 MG CAPSULE PO PRN (02:59)
[2020-09-29] MEDS ORDERED: PALIPERIDONE PALMITATE 156 MG/ML IM SCH (11:00)
[2020-09-29] MEDS: Budesonide/Formoterol 160/4.5 1 PUFF INH IH SCH ×2 (12:32→20:04)
[2020-09-29] MEDS: Nicotine 2 MG GUM BC PRN (13:32)
[2020-09-29] MEDS: Ibuprofen 600 MG TABLET PO PRN (17:07)
[2020-09-29] MEDS: QUEtiapine Fumarate 100 MG TABLET PO SCH (20:04)
[2020-09-29] MEDS: Divalproex (24 HR) 500 MG TABLET PO SCH (20:04)
[2020-09-30] MEDS: Ibuprofen 600 MG TABLET PO PRN (09:23)
[2020-09-30] MEDS: Nicotine 2 MG GUM BC PRN (09:47)
[2020-09-30] MEDS: Budesonide/Formoterol 160/4.5 1 PUFF INH IH SCH ×2 (09:52→20:04)
[2020-09-30] MEDS: hydrOXYzine pamoate 25 MG CAPSULE PO PRN (20:04)
[2020-09-30] MEDS: QUEtiapine Fumarate 100 MG TABLET PO SCH (20:04)
[2020-09-30] MEDS: Divalproex (24 HR) 500 MG TABLET PO SCH (20:04)
[2020-10-01] MEDS: hydrOXYzine pamoate 25 MG CAPSULE PO PRN (01:57)
[2020-10-01] MEDS: Budesonide/Formoterol 160/4.5 1 PUFF INH IH SCH (08:32)
[2020-10-01] MEDS ORDERED: PALIPERIDONE PALMITATE 156 MG/ML SYRINGE IM SCH (09:00)
[2020-10-01 09:49] VITALS: BP 119/81
== END 2020-10-01 12:25 | disposition home or self-care (01) | DRG 885 ==
LOC: SUATTDRO 17:25 → 1ANU 17:25
PROVIDERS: ADMIT Psychiatry & Neurology Psychiatry; ATTEND Psychiatry & Neurology Forensic Psychiatry